=== PATIENT | male | born 1955 | race Caucasian/White ===

== ENCOUNTER 2020-02-01 13:41 | Outpatient (CLI) | payer MEDICARE, SELFPAY ==
--- NOTE | ~2020-02-01 | XR_ITS ---
EXAMINATION: XR shoulder RT min 2V INDICATION: Right shoulder pain TECHNIQUE: Four views of the right shoulder are submitted. COMPARISON: 01/03/2019 FINDINGS: No fracture is identified. There is moderate osteoarthritis of the acromioclavicular and gl enohumeral joints. Subtle amorphous calcification is seen just cranial to the humeral head which is l ikely tendinous. A stimulator is implanted in the chest wall overlying the right upper thorax with it s leads coursing into the right neck beyond the superior margin of the radiograph. IMPRESSION: 1. Moderate osteoarthritis of the right shoulder without acute osseous findings. Reviewed, dictated and finalized at location A. IMPRESSION: 1. Moderate osteoarthritis of the right shoulder without acute osseous findings .
[2020-02-01 13:58] LABS: Hematocrit 35.7 % (40.0-54.0); Hemoglobin 11.8 g/dL (14.0-18.0); Mean Corpuscular HGB Conc 33.1 g/dL (32.0-36.0); Mean Corpuscular Hemoglobin 28.2 pg (27.0-31.0); Mean Corpuscular Volume 85.2 fL (78.0-102.0); Mean Platelet Volume 9.6 fl (8.7-11.0); Platelet Count Result 234 K/mm3 (150-420); Red Blood Count 4.19 M/mm3 (4.70-6.10); Red Cell Distribution Width 13.1 % (11.6-14.4); White Blood Count 7.9 K/mm3 (4.8-10.8)
[2020-02-01 14:07] LABS: Amphetamine Screen Urine Negative (Negative); Barbiturate Screen Urine Negative (Negative); Benzodiazepines Screen Urine Negative (Negative); Cannabinoid Screen Urine Negative (Negative); Cocaine Screen Urine Negative (Negative); Methadone Screen Urine Negative (Negative); Opiate Screen Urine Negative (Negative); Phencyclidine Screen Urine Negative (Negative)
[2020-02-01 14:12] LABS: Alanine Aminotransferase 14 U/L (16-63); Alkaline Phosphatase 100 U/L (46-116); Ammonia 12 umol/L (11-32); Anion Gap 13.2 mmol/L (7-16); Aspartate Amino Transferase 24 U/L (15-37); Bilirubin,Total 0.4 mg/dL (0.00-1.00); Blood Urea Nitrogen 19 mg/dL (7-18); Calcium 9.1 mg/dL (8.5-10.1); Carbon Dioxide 29 mmol/L (21-32); Chloride 100 mmol/L (98-108); Estimated Glomerular Filt Rate 56; Glucose 132 mg/dL (70-99); Osmolality Calculated 290 mOsm/kg (285-295); Potassium 4.2 mmol/L (3.5-5.1); Sodium 138 mmol/L (136-145); Total Protein 7.3 g/dL (6.4-8.2)
== END 2020-02-01 13:42 | disposition home or self-care (01) ==
LOC: CHSLAB 13:46
PROVIDERS: PCP Family Medicine; Visit Provider Family Medicine
DX: R41.82 Altered mental status, unspecified (principal); M79.601 Pain in right arm; E11.9 Type 2 diabetes mellitus without complications; Z79.899 Other long term (current) drug therapy
CPT/HCPCS: 36415; 73030; 80053; 80307; 82140; 83036; 85027; 87086; 87088

== ENCOUNTER 2020-09-24 15:33 | Emergency (ER) | payer MEDICARE, SELFPAY ==
--- NOTE | ~2020-09-24 | XR_ITS ---
EXAMINATION: XR foot LT 2V, XR ankle LT 2V EXAM DATE: 09/24/2020 16:30 INDICATION: Initial encounter following injury, with pain of the left foot, ankle. Injury 2 days ago. TECHNIQUE: Frontal and lateral projections of the left foot. Frontal and lateral projections left an kle. Comparison is made to prior examination from 12/27/2011. FINDINGS: There is a healed left 5th metatarsal shaft fracture, and healed fractures of the 4th and 5th proximal phalanges. There are no acute fractures identified. The ankle mortise appears intact. Sequela from old lateral malleolar avulsion injury or injuries. Swelling over the ankle laterally. S mall calcaneal spurs. There are arterial calcifications, arteriosclerosis. IMPRESSION: 1. No acute left ankle or foot fractures. 2. Lateral soft tissue swelling. 3. Other chronic findings. Reviewed, dictated and finalized at location A. 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 No acute left ankle or foot fractures. 2. Lateral soft tissue swelling. 3. Other chronic findings.
[2020-09-24 16:05] VITALS: BP 127/55; PULSE 78; RESP 20; TEMP 37.1; O2SAT 98
--- NOTE | 2020-09-24 16:45 | ED.LOWEXIN ---
HPI - Extremity Injury (Lower) General Chief Complaint: Extremity Injury, Lower Stated Complaint: twisted ankle during fall Time Seen by Provider: 09/24/20 16:15 Source: patient and family History of Present Illness HPI Narrative: Patient comes in with swelling of left lateral ankle after a fall. He fell when he missed the last step on going down the stairs. He complains of pain in the left lateral ankle and left foot. This fall happened a few days ago. He had evidently injured this same ankle a few weeks ago, and it swelled then. This swelling resolved, they believe. Then he reinjured it 3 days ago. He was not felt to have a swollen left ankle, or swollen left leg before the fall. He also hit his head several days ago from a different fall, and has a black eye on the right and a healing laceration about 1cm long on the left upper eyelid. The is with him and she says his mentation has not changed. Onset (ago): week(s) Place: home Severity: moderate Severity scale (1-10): 5 Relieving factors: nothing Exacerbating factors: movement Context: fall Associated symptoms: swelling Related Data Home Medications Medication Instructions Recorded Confirmed aspirin 81 mg tablet,delayed 81 mg PO DAILY 08/31/19 09/24/20 release carbidopa 25 mg-levodopa 100 mg 2 tablet PO .Q3 hours tablet 08/31/19 09/24/20 tablet carbidopa 50 mg-levodopa 200 1 tablet PO QID 08/31/19 09/24/20 mg-entacapone 200 mg tablet docusate sodium 100 mg tablet 100 mg PO BID 08/31/19 09/24/20 insulin human U-100 NPH-regulr 40 unit SUB-Q .40u AM, 25PM ml 08/31/19 09/24/20 70-30 mix 100 unit/mL subcutaneous susp melatonin 5 mg tablet 5 mg PO .Bedtime tablet 08/31/19 09/24/20 polyethylene glycol 3350 17 17 gm PO DAILY 08/31/19 09/24/20 gram/dose oral powder sertraline 100 mg tablet 100 mg PO .1 QAM, 1/2 QPM tablet 08/31/19 09/24/20 amlodipine 10 mg PO DAILY 09/24/20 09/24/20 atorvastatin 40 mg PO DAILY 09/24/20 09/24/20 losartan 50 mg PO DAILY 09/24/20 09/24/20 metformin 1,000 mg PO BID 09/24/20 09/24/20 Allergies Allergy/AdvReac Type Severity Reaction Status Date / Time Penicillins Allergy Intermediate Unknown Verified 05/09/20 10:39 acetaminophen AdvReac Severe ams/somnole Verified 05/09/20 10:39 nce hydrocodone AdvReac Severe ams/somnole Verified 05/09/20 10:39 nce diazepam AdvReac Intermediate somnolence/ Verified 05/09/20 10:39 ams Review of Systems Constitutional: Constitutional: Reports no additional constitutional complaints Eyes: Eyes: Reports no additional eye complaints ENT: Reports system reviewed and no additional complaints, except as documented Cardiovascular: Cardiovascular: Reports no additional cardiovascular complaints Comments: denies chest pain. Respiratory: Respiratory: Reports no additional respiratory complaints Gastrointestinal: Gastrointestinal: Reports no additional gastrointestinal complaints Genitourinary: Genitourinary: Reports no additional male genitourinary complaints Musculoskeletal: Musculoskeletal: Reports no additional musculoskeletal complaints Integumentary/Breasts: Comments: Small wound on left foot, that has some mild erythema around it. Neurologic: Reports system reviewed and no additional complaints, except as documented Psychiatric: Psychiatric: Reports no additional psychiatric complaints Endocrine: Endocrine: Reports no additional endocrine complaints Hematologic/Lymphatic: Hematologic/Lymphatic: Reports no additional hematologic/lymphatic complaints Allergic/Immunologic: Allergic/Immunologic: Reports no additional allergic/immunologic complaints [facility] Past Medical History Medical History Altered mental status DM2 (diabetes mellitus, type 2) Hyperlipidemia Hypertension Left ankle sprain Neuropathy Parkinsons disease Primary osteoarthritis of right shoulder Urinary incontinence Surgical Histo
[2020-09-24] MEDS: KETOROLAC (*BKC) 60 MG/2 ML VIAL IM (17:00)
[2020-09-24 17:53] LABS: D Dimer 1.61 mg/L (0.19-0.50)
[2020-09-24 18:15] VITALS: BP 127/60
== END 2020-09-24 18:15 | disposition home or self-care (01) ==
PROVIDERS: Emergency Provider Emergency Medicine; PCP Family Medicine
DX: S93.402A Sprain of unspecified ligament of left ankle, initial encounter (principal); W19.XXXA Unspecified fall, initial encounter
CPT/HCPCS: 36415; 73600; 73620; 85380; 96372; 99283; J1885

== ENCOUNTER 2020-10-31 16:19 | Observation (INO) | payer MEDICARE, SELFPAY ==
[2020-10-31 16:25] VITALS: BP 205/88; PULSE 67; RESP 15; TEMP 36.6; O2SAT 98
--- NOTE | 2020-10-31 16:35 | ECG_ITS ---
Measurements Intervals [place] Rate: 62 P: NV: 0 QRS: 237 QRSD: 81 T: 182 QT: 395 QTc: 402 Interpretive Statements REGULAR NARROW QRS COMPLEXES, PROBABLY SINUS RHYTHM (SIGNIFICANT BASELINE ARTIFACT) BASELINE ARTIFACT- I, II, III, AVR, AVL, AVF, V1-V6 ABNORMAL ECG Electronically Signed On 10-31-2020 19:14:26 CDT by Howard Vera D.O.
[2020-10-31 16:52] LABS: Basophils Absolute Auto 0.05 K/mm3 (0.00-0.10); Basophils Percent Auto 0.9 % (0.0-1.0); Eosinophils Absolute Auto 0.32 K/mm3 (0.02-0.50); Eosinophils Percent Auto 5.7 % (1.0-6.0); Hematocrit 33.6 % (40.0-54.0); Hemoglobin 11.1 g/dL (14.0-18.0); Immature Granulocyte Absolute 0.01 K/mm3 (0.00-0.00); Immature Granulocyte Percent A 0.2 % (0.0-0.0); Lymphocytes Absolute Auto 1.77 K/mm3 (1.10-4.50); Lymphocytes Percent Auto 31.6 % (18.0-42.0); Mean Corpuscular Hemoglobin 27.1 pg (27.0-31.0); Mean Corpuscular Volume 82.2 fL (78.0-102.0); Mean Platelet Volume 9.5 fl (8.7-11.0); Monocytes Percent Auto 8.9 % (2.0-11.0); Neutrophils Percent Auto 52.7 % (50.0-70.0); Platelet Count Result 192 K/mm3 (150-420); Red Blood Count 4.09 M/mm3 (4.70-6.10); Red Cell Distribution Width 13.2 % (11.6-14.4); White Blood Count 5.6 K/mm3 (4.8-10.8)
[2020-10-31] MEDS: SODIUM CHLORIDE 0.9% IV 1,000 ML 999 ML IV CONT (17:00)
[2020-10-31 17:03] LABS: Appearance Urine Clear (Clear); Bilirubin Urine Negative (Negative); Color Urine Yellow (Yellow); Glucose Urine UA 3+ (Negative); Ketones Urine Negative (Negative); Leukocyte Esterase Ur Negative (Negative); Nitrate Urine Negative (Negative); Protein Urine 1+ (Negative); Urobilinogen Urine 0.2 mg/dL (0.2-1.0)
[2020-10-31 17:11] LABS: Add Urine Microscopic? YES; Blood Urine Trace-Intact (Negative); RBC Urine None seen /hpf (0-2)
[2020-10-31 17:12] LABS: Bacteria Urine None seen /hpf; Squamous Epithelial Cell Urine Rare /hpf (Few); WBC Urine None seen /hpf (0-3)
[2020-10-31 17:16] LABS: Alanine Aminotransferase 40 U/L (16-63); Albumin Level 3.6 g/dL (3.4-5.0); Alkaline Phosphatase 133 U/L (46-116); Anion Gap 11 mmol/L (8-16); Aspartate Amino Transferase 16 U/L (15-37); Bilirubin,Total 0.5 mg/dL (0.00-1.00); Blood Urea Nitrogen 21 mg/dL (7-18); Carbon Dioxide 27 mmol/L (21-32); Chloride 97 mmol/L (98-108); Estimated Glomerular Filt Rate > 60; Osmolality Calculated 301 mOsm/kg (285-295); Potassium 4.2 mmol/L (3.5-5.1); Sodium 135 mmol/L (136-145); Thyroid Stimulating Hormone 1.05 uIU/mL (0.36-3.74)
[2020-10-31 17:20] LABS: Glucose 421 mg/dL (70-99)
--- NOTE | 2020-10-31 17:48 | ED.GENADULT ---
HPI - General Adult General Chief complaint: Medical Clearance Stated complaint: sent from doctor meli Source: patient Mode of arrival: ambulatory Limitations: no limitations History of Present Illness HPI narrative: Pt is a 65 yo male who has been having frequent falls, worse over last week. He had PT visit 7 times, but said it wasnt enough for him to get any better. He has been cared for by his at home. She states that she can no longer care for him at home, especially in his current state of deconditioning. The is unruly in the ED, Yelling at me, threatening to mariaelena me and the insurance if we dont get him in a swing/rehab bed. SHe is absolutely not capable of listening and discussing the situation in a calm manner at this time. It was a very confrontational, and i had to call in nursing. SHe seems to be more cooperative with nursing staff. She is extremely difficult, even though i have been speaking in a calm manner and telling her that I want to get him help. She apparently expected to get accepted to a swing bed immediately, which i tried to explain is not the process. Onset (ago): month(s) Relieving factors: none Exacerbating factors: none Associated symptoms: denies other symptoms and weakness Related Data Home Medications Medication Instructions Recorded Confirmed aspirin 81 mg tablet,delayed 81 mg PO DAILY 08/31/19 10/31/20 release carbidopa 25 mg-levodopa 100 mg 2 tablet PO .Q3 hours tablet 08/31/19 10/31/20 tablet carbidopa 50 mg-levodopa 200 1 tablet PO QID 08/31/19 10/31/20 mg-entacapone 200 mg tablet docusate sodium 100 mg tablet 100 mg PO BID 08/31/19 10/31/20 insulin human U-100 NPH-regulr 40 unit SUBCUT QAM ml 08/31/19 10/31/20 70-30 mix 100 unit/mL subcutaneous susp polyethylene glycol 3350 17 17 gm PO DAILY 08/31/19 10/31/20 gram/dose oral powder sertraline 100 mg tablet 100 mg PO .1 QAM, 1/2 QPM tablet 08/31/19 10/31/20 amlodipine 10 mg PO DAILY 09/24/20 10/31/20 atorvastatin 40 mg PO DAILY 09/24/20 10/31/20 losartan 50 mg PO DAILY 09/24/20 10/31/20 metformin 1,000 mg PO BID 09/24/20 10/31/20 acetaminophen 500 mg PO Q6H PRN 10/31/20 10/31/20 clonazepam 0.5 mg PO HS 10/31/20 10/31/20 insulin NPH isoph U-100 human 25 unit SUBCUT HS 10/31/20 10/31/20 [Novolin N NPH U-100 Insulin] semaglutide [Ozempic] 0.5 mg SUBCUT WEEKLY 10/31/20 10/31/20 vitamin A-vitamin C-vit E-min 1 tablet PO DAILY 10/31/20 10/31/20 [Vision] vitamin B complex [B 1 tablet PO DAILY 10/31/20 10/31/20 Complex-Vitamin B12] Allergies Allergy/AdvReac Type Severity Reaction Status Date / Time Penicillins Allergy Intermediate Unknown Verified 10/31/20 08:36 acetaminophen AdvReac Severe ams/somnole Verified 10/31/20 08:36 nce hydrocodone AdvReac Severe ams/somnole Verified 10/31/20 08:36 nce diazepam AdvReac Intermediate somnolence/ Verified 10/31/20 08:36 ams Review of Systems Review of Systems: All systems reviewed & are unremarkable except as noted in HPI and below Constitutional: Constitutional: Reports weakness Eyes: Eyes: Reports no additional eye complaints ENT: Reports system reviewed and no additional complaints, except as documented Cardiovascular: Cardiovascular: Reports no additional cardiovascular complaints Respiratory: Respiratory: Reports no additional respiratory complaints Gastrointestinal: Gastrointestinal: Reports no additional gastrointestinal complaints Genitourinary: Genitourinary: Reports no additional male genitourinary complaints Musculoskeletal: Musculoskeletal: Reports no additional musculoskeletal complaints Integumentary/Breasts: Skin/Breast: Reports system reviewed and no additional complaints, except as docu Neurologic: Reports system reviewed and no additional complaints, except as documented Psychiatric: Psychiatric: Reports no additional psychiatric complaints Endocrine: Endocrine: Reports no additional endocrine complaints H
[2020-10-31 19:00] VITALS: BP 180/100; PULSE 66; O2SAT 95
[2020-10-31 19:14] VITALS: BP 144/95; PULSE 62; RESP 20; TEMP 37; O2SAT 98
--- NOTE | 2020-10-31 20:00 | ADMGEN ---
This patient, Marcos Webb, was admitted to 2nd Floor Room 207-2. Patient/family oriented to hospital policies and general routines including ID bracelet, bed and alarms, visiting hours, pain management, procedures, bathroom and other care routines, personal items, smoking policy, room service/diet, and visiting hours. Information on how to activate the Rapid Response Team has been discussed. Patient/Family are encouraged to report perceived risks to care and to ask questions if they do not understand what they are told or what they should do. Pt. has noted difficulty holding objects c his hands and asks for help c feeding. Pt. instructed on use of call light but unable to utilize hands to push buttons. Pt. informed he is close to nurse desk and frequent observation checks for help if needed. Pt. verbalized understanding.
[2020-10-31 20:09] LABS: Glucose Point of Care 274 (65-105)
[2020-10-31] MEDS: SERTRALINE HCL 50 MG TABLET PO (20:11)
[2020-10-31] MEDS: DOCUSATE SODIUM 100 MG CAPSULE PO (20:12)
[2020-10-31] MEDS: clonazePAM (*CRX) 0.5 MG TABLET PO (21:15)
[2020-10-31] MEDS: CARBIDOPA/LEVODOPA 25/100 MG TABLET 2 TABLET PO (21:15)
[2020-10-31] MEDS: ATORVASTATIN 40 MG TABLET PO (21:15)
[2020-10-31] MEDS: INSULIN HUMAN NPH (*BKC) 100 UNITS/ML 25 UNITS SUB-Q (21:16)
[2020-10-31 21:45] VITALS: BMI 31.5
[2020-10-31 22:00] VITALS: BP 180/75; PULSE 80; RESP 20; TEMP 36.5; O2SAT 97
--- NOTE | 2020-10-31 22:00 | PC.NURSE ---
Pt. noted to be pulling at sheets and attempting to get out of bed. Pt. noted to be incont. of urine and complete bed change performed. Pt. informed that he cannot get out of bed. Pt. follows commands when told to stay in bed but is confused and needs much reassurance at this time.
--- NOTE | 2020-11-01 05:30 | PC.NURSE ---
Pt. called for help, unable to use call light. Pt. requested urinal and assisted c holding in place. Pt. was able to urinate. Seems more alert and not as confused this AM.
[2020-11-01 05:44] VITALS: BP 147/91; PULSE 65; RESP 20; TEMP 36.9; O2SAT 96
--- NOTE | 2020-11-01 06:45 | PC.NURSE ---
Contacted Dr. Cardona to clarify medication orders; Orders clarified.
[2020-11-01 08:03] LABS: Glucose Point of Care 244 (65-105)
--- NOTE | 2020-11-01 08:10 | WPDREHABHP ---
H&P: HPI History of Present Illness Date/Time: 11/01/20 08:10 Marcos Webb is a 65 y/o male with a history of Parkinson Disease who recently saw his Neurology provider Laura Alejandro NP at [facility]. I called Laura regarding increasing, confirming, or to make additions to the Pt's Parkinson medications since he is here for increased weakness and unable to get up and walk about his home. According to Laura Pt does not walk much, has a stair chair that she believes does not work and the Pt uses a wheelchair to get around the home. She states that the will leave Pts medications next to him at home with a clock near him so that he can medicate himself. Laura did not want to make any changes or additions to the Pt's Parkinson regimen and informed me she did increase the Pt's Brain Stimulator in September 2020. The brought the Pt to the ER because he has gotten weaker and unable to take care of him at home. Pt was working with HH PT about 7 times though states he is not getting any better. The Pt's PCP was wanting a swing bed for PT/OT for reconditioning so that the Pt may return home per the 's wishes. apparently does not want her to go to a snf or similar and wants him to get stronger to return home. Chief Complaint: Deconditioning, Weakness Review of Systems Constitutional Constitutional: Reports no additional constitutional complaints, Denies chills and Denies fever(s) Eyes Eyes: Reports no additional eye complaints ENT Reports system reviewed and no additional complaints, except as documented Cardiovascular Cardiovascular: Reports no additional cardiovascular complaints, Denies chest pain, Denies chest pain at rest and Denies chest pain with activity Respiratory Respiratory: Reports no additional respiratory complaints, Denies cough, Denies dyspnea and Denies dyspnea on exertion Gastrointestinal Gastrointestinal: Reports no additional gastrointestinal complaints Genitourinary Genitourinary: Reports no additional male genitourinary complaints Musculoskeletal Musculoskeletal: Reports muscle weakness (unable to get up and walk) Neurologic Reports system reviewed and no additional complaints, except as documented and Reports weakness PMFSH Past Medical History Medical History Altered mental status DM2 (diabetes mellitus, type 2) Hyperlipidemia Hypertension Left ankle sprain Neuropathy Parkinsons disease Primary osteoarthritis of right shoulder Urinary incontinence Surgical History Surgical History History of carpal tunnel surgery Left Side 2014 Right Side 2015 Family History Family History Other Diabetes mellitus Family history of arthritis Family history of cardiovascular disease Family history of malignant neoplasm Hypertension Social History Social History Smoking status: Never smoker Alcohol intake: never Substance use: never 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) Meds Home Medications and Allergies Home Medications Medication Instructions Recorded Confirmed Type aspirin 81 mg tablet,delayed 81 mg PO DAILY 08/31/19 10/31/20 History release carbidopa 25 mg-levodopa 100 mg 2 tablet PO .Q3 hours tablet 08/31/19 10/31/20 History tablet carbidopa 50 mg-levodopa 200 1 tablet PO QID 08/31/19 10/31/20 History mg-entacapone 200 mg tablet docusate sodium 100 mg tablet 100 mg PO BID 08/31/19 10/31/20 History insulin human U-100 NPH-regulr 40 unit SUBCUT QAM ml 08/31/19 10/31/20 History 70-30 mix 100 unit/mL subcutaneous susp polyethylene glycol 3350 17 17 gm PO DAILY 08/31/19 10/31/20 History gram/dose oral powder sertraline 100 mg tablet 100 mg PO .1 QAM, 1/2 QPM tablet 08/31/19 10/31/20 History amlodi
[2020-11-01] MEDS: polyethylene glycoL 3350 17 GM POWD.PACK PO (08:15)
[2020-11-01] MEDS: amLODIPine BESYLATE 5 MG TABLET 10 MG PO (08:15)
[2020-11-01] MEDS: DOCUSATE SODIUM 100 MG CAPSULE PO ×2 (08:15→18:04)
[2020-11-01] MEDS: CARBIDOPA/LEVODOPA 25/100 MG TABLET 2 TABLET PO ×6 (08:16→23:39)
[2020-11-01] MEDS: metFORMIN HCL 500 MG TABLET 1000 MG PO ×2 (08:16→18:05)
[2020-11-01] MEDS: VITAMIN B COMPLEX CAPSULE 1 CAP PO (08:17)
[2020-11-01] MEDS: OPTI-GEN TAB 1 TABLET PO (08:17)
[2020-11-01] MEDS: LOSARTAN POTASSIUM 50 MG TABLET PO (08:17)
[2020-11-01] MEDS: SERTRALINE HCL 50 MG TABLET 100 MG PO (08:18)
[2020-11-01] MEDS: ASPIRIN 81 MG ENTERIC TABLET PO (08:18)
--- NOTE | 2020-11-01 09:17 | PC.NURSE ---
tells pt that he is able to put pants on but can not always pull them all the way up. after pt leaves tells nurse unable to do for self. encouraged pt to do and staff would help. after set up can feed self. lift cup with straw and drink. crosses on foot on lap and pull sock up. praised for job well done. elana grace
[2020-11-01] MEDS: INSULIN HUMAN ISOPHAN/REGULAR 70/30 (*BKC) 100 UNITS/ML 40 UNITS SUB-Q (09:58)
[2020-11-01] MEDS: ENTACAPONE 200 MG TABLET PO ×3 (12:43→21:39)
[2020-11-01 14:00] VITALS: BP 170/92; PULSE 80; RESP 16; TEMP 36.6; O2SAT 96
--- NOTE | 2020-11-01 15:39 | PHAR ---
jacinto davis children's librarian confirmed w/pt.'s neurologist is to take the carbidopa/levodopa q3h, and also sep rx qid. tls
[2020-11-01 16:00] VITALS: BP 123/82; PULSE 70; RESP 18; TEMP 36.5; O2SAT 96
[2020-11-01 16:33] LABS: Glucose Point of Care 259 (65-105)
--- NOTE | 2020-11-01 16:54 | PC.NURSE ---
Blood sugar 82 per Accu-chek, reverified 80. Ryanne Ramirez RN Charge Nurse informed.
[2020-11-01 16:55] LABS: Glucose Point of Care 82 (65-105)
[2020-11-01 16:55] LABS: Glucose Point of Care 80 (65-105)
[2020-11-01] MEDS: SERTRALINE HCL 50 MG TABLET PO (18:05)
[2020-11-01 21:38] LABS: Glucose Point of Care 126 (65-105)
[2020-11-01] MEDS: ATORVASTATIN 40 MG TABLET PO (21:38)
[2020-11-01] MEDS: clonazePAM (*CRX) 0.5 MG TABLET PO (21:38)
[2020-11-01] MEDS: INSULIN HUMAN NPH (*BKC) 100 UNITS/ML 25 UNITS SUB-Q (21:43)
--- NOTE | 2020-11-01 21:50 | PC.NURSE ---
Given cottage cheese for HS snack.
[2020-11-01] MEDS: ACETAMINOPHEN 500 MG TABLET PO (23:38)
[2020-11-01 23:50] VITALS: BP 105/50; PULSE 66; RESP 20; TEMP 36.8; O2SAT 97
[2020-11-02] MEDS: CARBIDOPA/LEVODOPA 25/100 MG TABLET 2 TABLET PO ×11 (02:18→20:33)
[2020-11-02 08:00] VITALS: BP 137/86; PULSE 61; RESP 20; TEMP 36.7; O2SAT 96
[2020-11-02 08:17] LABS: Glucose Point of Care 165 (65-105)
[2020-11-02] MEDS: ASPIRIN 81 MG ENTERIC TABLET PO (08:21)
[2020-11-02] MEDS: OPTI-GEN TAB 1 TABLET PO (08:21)
[2020-11-02] MEDS: polyethylene glycoL 3350 17 GM POWD.PACK PO (08:21)
[2020-11-02] MEDS: ENTACAPONE 200 MG TABLET PO ×4 (08:21→20:37)
[2020-11-02] MEDS: LOSARTAN POTASSIUM 50 MG TABLET PO (08:22)
[2020-11-02] MEDS: DOCUSATE SODIUM 100 MG CAPSULE PO ×2 (08:22→16:43)
[2020-11-02] MEDS: amLODIPine BESYLATE 5 MG TABLET 10 MG PO (08:24)
[2020-11-02] MEDS: ACETAMINOPHEN 500 MG TABLET PO (08:24)
[2020-11-02] MEDS: metFORMIN HCL 500 MG TABLET 1000 MG PO ×2 (08:28→16:42)
[2020-11-02] MEDS: VITAMIN B COMPLEX CAPSULE 1 CAP PO (08:30)
[2020-11-02] MEDS: SERTRALINE HCL 50 MG TABLET 100 MG PO (08:30)
[2020-11-02] MEDS: INSULIN HUMAN ISOPHAN/REGULAR 70/30 (*BKC) 100 UNITS/ML 40 UNITS SUB-Q (08:37)
[2020-11-02 11:58] LABS: Glucose Point of Care 221 (65-105)
--- NOTE | 2020-11-02 12:04 | PM.IMPN ---
Progress Note: A&P Assessment and Plan (1) Weakness generalized: Code(s): R53.1 - Weakness Status: Acute Assessment and Plan: 11/01/2020 PT/OT for evaluation and treatment for generalized weakness and inability to walk, Glucose was 400+ upon arrival to hospital but now in the mid 200s, Reconditioning with PT/OT so that Pt may return home to perform some ADLs with 's assistance, likely try to get HH involved with PT/OT and possibly additional care provider as my be experiencing caregiver fatigue. 11/02/2020 Pt to continue working with PT/OT, awaiting for Pt to be accepted into Swing Bed for continuation of PT/OT so that he can return home with increased stamina, balance, strength so as to perform ADLs along with assistance from his . (2) Parkinsons disease: Code(s): G20 - Parkinson's disease Status: Acute Assessment and Plan: 11/01/2020 Called Pt's Neuro group as noted in HPI, continue Parkinson medications, Sertraline, Clonazepam, monitor Pt, work with PT/OT 11/02/2020 No changes to be made per [facility] group to Parkinson medications, however orders placed as Pt is to be taking his mediations to ensure Pt is getting his medications as the Neuro group providers intended the Pt to have them. (3) Hyperlipidemia: Code(s): E78.5 - Hyperlipidemia, unspecified Status: Acute Assessment and Plan: 11/01/2020 continue Atorvastatin, ASA 11/02/2020 ... (4) Hypertension: Code(s): I10 - Essential (primary) hypertension Status: Acute Assessment and Plan: 11/01/2020 Continue with Amlodipine, Losartan 11/02/2020 Continue as above, no need at this time to change medications (5) DM2 (diabetes mellitus, type 2): Code(s): E11.9 - Type 2 diabetes mellitus without complications Status: Acute Assessment and Plan: 11/01/2020 Per Pt does not take Ozempic since it is too expensive, Currently with Metformin, 70/30 insulin 40 units QAM, Insulin NPH 25 units HS, glucose monitoring, Diabetic consistent carb diet. 11/02/2020 Will recheck labs in AM and continue to monitor Accu-checks Subjective Date/time seen: 11/02/20 12:04 Pt states that he is legally blind. He informed me that his sets up his medications with a clock nearby that he can look at and administer his medications to himself. Pt states that his vision fluctuates at times and at some times he has a very difficult time seeing. He states that during the times he is unable to see his with assist with giving him his medications. Pt state he is feeling good today and is looking forward to getting PT and OT so that he can return home. Pt admits that his stair [place] lift is not working properly and that his walker is broken after he fell down and broke the walker in the process. Pt has not complaints of CP, SOB, abdominal issues. He does c/o pain in his legs that he has been dealing with for a long time. He states that he has been to many neurologist for his leg pain and many different medications have been trialed but nothing seems to work. Review of Systems Constitutional: Constitutional: Denies chills, Denies fatigue, Denies fever(s), Denies headache(s) and Reports weakness (in legs with walking) Eyes: Comments: admits to being legally blind ENT: Reports system reviewed and no additional complaints, except as documented, Denies vertigo and Denies dizziness Cardiovascular: Cardiovascular: Reports no additional cardiovascular complaints, Denies chest pain, Denies chest pain at rest and Denies chest pain with activity Respiratory: Respiratory: Reports no additional respiratory complaints, Denies cough, Denies dyspnea and Denies dyspnea on exertion Gastrointestinal: Gastrointestinal: Reports no additional gastrointestinal complaints Musculoskeletal: Musculoskeletal: Reports numbness (Lower extremities) and Reports tingling (Lower extremities) Neurologic: Reports focal weakness (states he gets weak in the legs) and Re
[2020-11-02] MEDS: GABAPENTIN 100 MG CAPSULE PO ×2 (12:46→16:43)
[2020-11-02 16:20] VITALS: BP 154/87; PULSE 63; RESP 20; TEMP 37; O2SAT 97
[2020-11-02 16:40] LABS: Glucose Point of Care 137 (65-105)
[2020-11-02] MEDS: SERTRALINE HCL 50 MG TABLET PO (18:02)
[2020-11-02] MEDS: LORazepam INJ (*CRX) 2 MG/ML VIAL 0.5 MG IV PUSH (18:21)
--- NOTE | 2020-11-02 18:48 | PC.NURSE ---
Daughter here and visiting patient.
--- NOTE | 2020-11-02 19:26 | PC.NURSE ---
pt is very agitated, attempting to get out of chair, transferred to bed with sit to stand, in room states his klonopin will calm him down best, dr coleman called and has given telephone permission to give 2100 dose of klonopin early
[2020-11-02] MEDS: clonazePAM (*CRX) 0.5 MG TABLET PO (19:34)
[2020-11-02] MEDS: ATORVASTATIN 40 MG TABLET PO (20:34)
[2020-11-02] MEDS: INSULIN HUMAN NPH (*BKC) 100 UNITS/ML 25 UNITS SUB-Q (21:12)
[2020-11-03] VITALS: BP 140/83; PULSE 72; RESP 20; TEMP 37.5; O2SAT 95
[2020-11-03] MEDS: CARBIDOPA/LEVODOPA 25/100 MG TABLET 2 TABLET PO ×7 (00:12→12:27)
--- NOTE | 2020-11-03 00:15 | PC.NURSE ---
Pt repositioned in bed; Pt given sinemet 25/100 2 tablets PO as ordered.
--- NOTE | 2020-11-03 01:06 | PC.NURSE ---
Pt incontinent of urine; Pt also voided 250 ml of clear, tutu urine in the urinal. Pt cleaned, changed and repositioned and was given gelatin to eat.
[2020-11-03 01:18] LABS: Glucose Point of Care 136 (65-105)
--- NOTE | 2020-11-03 02:55 | PC.NURSE ---
Pt incontinent of urine; Pt cleaned, changed and repositioned. Pt also given sinemet 25/100 2 tabs as ordered.
--- NOTE | 2020-11-03 04:34 | PC.NURSE ---
Pt assisted with the urinal and he voided 250 ml of clear, tutu urine in the urinal. Pt is still trying to get out of bed and is very restless.
--- NOTE | 2020-11-03 05:19 | PC.NURSE ---
Pt offered the urinal and he voided 250 ml of clear, tutu urine.
[2020-11-03 05:30] LABS: Hematocrit 35.6 % (40.0-54.0); Hemoglobin 11.6 g/dL (14.0-18.0); Mean Corpuscular HGB Conc 32.6 g/dL (32.0-36.0); Mean Corpuscular Hemoglobin 26.9 pg (27.0-31.0); Mean Corpuscular Volume 82.4 fL (78.0-102.0); Mean Platelet Volume 10.6 fl (8.7-11.0); Platelet Count Result 232 K/mm3 (150-420); Red Blood Count 4.32 M/mm3 (4.70-6.10); White Blood Count 7.6 K/mm3 (4.8-10.8)
[2020-11-03 06:02] LABS: Anion Gap 6 mmol/L (8-16); Blood Urea Nitrogen 21 mg/dL (7-18); Calcium 8.9 mg/dL (8.5-10.1); Carbon Dioxide 28 mmol/L (21-32); Chloride 102 mmol/L (98-108); Estimated CRCL calculation 95 ml/min; Estimated Glomerular Filt Rate > 60; Glucose 98 mg/dL (70-99); Osmolality Calculated 285 mOsm/kg (285-295); Potassium 4.2 mmol/L (3.5-5.1); Sodium 136 mmol/L (136-145)
--- NOTE | 2020-11-03 06:22 | PC.NURSE ---
Pt given sinemet 25/100 2 tablets PO as ordered.
--- NOTE | 2020-11-03 07:20 | PC.NURSE ---
Pt continues to be restless and agitated and trying to get out of bed. Pt assisted up to the chair with the sit to stand and assist of two.
[2020-11-03 07:33] LABS: Glucose Point of Care 197 (65-105)
[2020-11-03 08:00] VITALS: BP 127/60; PULSE 69; RESP 20; TEMP 36.8; O2SAT 97
[2020-11-03] MEDS: INSULIN HUMAN ISOPHAN/REGULAR 70/30 (*BKC) 100 UNITS/ML 40 UNITS SUB-Q (09:50)
[2020-11-03] MEDS: polyethylene glycoL 3350 17 GM POWD.PACK PO (09:51)
[2020-11-03] MEDS: ASPIRIN 81 MG ENTERIC TABLET PO (09:52)
[2020-11-03] MEDS: metFORMIN HCL 500 MG TABLET 1000 MG PO (09:52)
[2020-11-03] MEDS: SERTRALINE HCL 50 MG TABLET 100 MG PO (09:52)
[2020-11-03] MEDS: VITAMIN B COMPLEX CAPSULE 1 CAP PO (09:53)
[2020-11-03] MEDS: GABAPENTIN 100 MG CAPSULE PO ×2 (09:53→12:25)
[2020-11-03] MEDS: ENTACAPONE 200 MG TABLET PO ×2 (09:54→12:27)
[2020-11-03] MEDS: OPTI-GEN TAB 1 TABLET PO (09:54)
[2020-11-03] MEDS: DOCUSATE SODIUM 100 MG CAPSULE PO (09:54)
[2020-11-03] MEDS: LOSARTAN POTASSIUM 50 MG TABLET PO (09:54)
[2020-11-03] MEDS: amLODIPine BESYLATE 5 MG TABLET 10 MG PO (09:54)
[2020-11-03 12:10] LABS: Glucose Point of Care 191 (65-105)
--- NOTE | 2020-11-03 13:48 | PM.DS ---
DS: Admitting Diagnosis Admitting Diagnosis Admitting Diagnosis: Generalized Weakness <ENMANUEL Miller - Last Filed: 11/03/20 14:01> DS: Discharge Diagnosis Discharge Diagnosis (1) Weakness generalized: Code(s): R53.1 - Weakness <Roosevelt LastENMANUEL Luna - Last Filed: 11/03/20 14:01> Status: Acute <Roosevelt BerhaneENMANUEL Luna - Last Filed: 11/03/20 14:01> Assessment and Plan: 11/01/2020 PT/OT for evaluation and treatment for generalized weakness and inability to walk, Glucose was 400+ upon arrival to hospital but now in the mid 200s, Reconditioning with PT/OT so that Pt may return home to perform some ADLs with 's assistance, likely try to get HH involved with PT/OT and possibly additional care provider as my be experiencing caregiver fatigue. 11/02/2020 Pt to continue working with PT/OT, awaiting for Pt to be accepted into Swing Bed for continuation of PT/OT so that he can return home with increased stamina, balance, strength so as to perform ADLs along with assistance from his . 11/03/2020 Pt has been accepted to the Swing Bed Program per Case Management per Insurance. Pt will be transferred, via documentation, into Swing Bed for Rehabilitation d/t his Generalized Weakness to work with PT/OT for reconditioning. <ENMANUEL Miller - Last Filed: 11/03/20 14:01> (2) Parkinsons disease: Code(s): G20 - Parkinson's disease <ENMANUEL Miller - Last Filed: 11/03/20 14:01> Status: Acute <ENMANUEL Miller - Last Filed: 11/03/20 14:01> Assessment and Plan: 11/01/2020 Called Pt's Neuro group as noted in HPI, continue Parkinson medications, Sertraline, Clonazepam, monitor Pt, work with PT/OT 11/02/2020 No changes to be made per Neuro group to Parkinson medications, however orders placed as Pt is to be taking his mediations to ensure Pt is getting his medications as the Neuro group providers intended the Pt to have them. 11/03/2020 Pt medications have been set yesterday as noted per Neuro group established regimen. Gabapentin was added for Pt LE neuropath 100 mg TID <ENMANUEL Miller - Last Filed: 11/03/20 14:01> (3) Hyperlipidemia: Code(s): E78.5 - Hyperlipidemia, unspecified <ENMANUEL Miller - Last Filed: 11/03/20 14:01> Status: Acute <ENMANUEL Miller - Last Filed: 11/03/20 14:01> Assessment and Plan: 11/01/2020 continue Atorvastatin, ASA 11/02/2020 ... <ENMANUEL Miller - Last Filed: 11/03/20 14:01> (4) Hypertension: Code(s): I10 - Essential (primary) hypertension <ENMANUEL Miller - Last Filed: 11/03/20 14:01> Status: Acute <ENMANUEL Miller - Last Filed: 11/03/20 14:01> Assessment and Plan: 11/01/2020 Continue with Amlodipine, Losartan 11/02/2020 Continue as above, no need at this time to change medications 11/03/2020 VS stable no need to change medications at this time. <ENMANUEL Miller - Last Filed: 11/03/20 14:01> (5) DM2 (diabetes mellitus, type 2): Code(s): E11.9 - Type 2 diabetes mellitus without complications <ENMANUEL Miller - Last Filed: 11/03/20 14:01> Status: Acute <ENMANUEL Miller - Last Filed: 11/03/20 14:01> Assessment and Plan: 11/01/2020 Per Pt does not take Ozempic since it is too expensive, Currently with Metformin, 70/30 insulin 40 units QAM, Insulin NPH 25 units HS, glucose monitoring, Diabetic consistent carb diet. 11/02/2020 Will recheck labs in AM and continue to monitor Accu-checks 11/03/2020 Glucose has been controlled well to this point, no changes to medications at this time. <ENMANUEL Miller - Last Filed: 11/03/20 14:01> DS: Summary Hospital Course Hospital Course: Pt is here for generalized weakness and was waiting for insurance to approve Swing Bed Placement for Rehabilitation. Pt is going to be admitted as Swing bed Pt. <ENMANUEL Miller La
[2020-11-03 23:11] LABS: Glucose Point of Care 105 (65-105)
== END 2020-11-03 14:00 | disposition swing bed (61) ==
LOC: CHSED 16:22 → CHS2ND 19:12
PROVIDERS: Nurse Practitioner Family; Admitting Provider Emergency Medicine; Emergency Provider Emergency Medicine; PCP Family Medicine; Visit Provider Emergency Medicine
DX: R53.1 Weakness (principal); G20 Parkinson's disease; I10 Essential (primary) hypertension; E11.40 Type 2 diabetes mellitus with diabetic neuropathy, unspecified; E78.5 Hyperlipidemia, unspecified; H54.8 Legal blindness, as defined in USA; M79.606 Pain in leg, unspecified; M19.011 Primary osteoarthritis, right shoulder; R29.6 Repeated falls; Z91.81 History of falling; Z79.82 Long term (current) use of aspirin
CPT/HCPCS: 36415; 80048; 80053; 81001; 82948; 84443; 84484; 85025; 85027; 93005; 96360; 96361; 96374; 97162; 97165; 97530; 97535; 99285; A9270; G0378; J1815; J2060; J7030

== ENCOUNTER 2020-11-03 14:01 | Inpatient (IN) | payer MEDICARE, SELFPAY ==
--- NOTE | 2020-11-03 16:07 | WPDREHABHP ---
H&P: HPI History of Present Illness Date/Time: 11/03/20 16:07 Marcos Webb a 65 year old male was admitted to Swing Bed for Generalized Weakness. states that she is not able to take care of the Pt any more d/t his increased weakness. Pt states that he has a stair chair lift at home but it does not work and his walker was broken when he had a fall. Pt has a Hx of Parkinson, DM, Hyperlipidemia. Pt will need to work with PT/OT to increase his stamina and strength so that he can return home as does not want him placed in a assisted. Chief Complaint: Generalized Weakness Review of Systems Constitutional Constitutional: Reports no additional constitutional complaints, Denies chills, Denies fever(s), Denies headache(s) and Reports weakness ENT Reports system reviewed and no additional complaints, except as documented, Reports Normal hearing present, Denies vertigo, Denies dizziness and Reports other (states he is legally blind) Cardiovascular Cardiovascular: Reports no additional cardiovascular complaints, Denies chest pain and Denies chest pain at rest Respiratory Respiratory: Reports no additional respiratory complaints, Denies cough and Denies dyspnea Gastrointestinal Gastrointestinal: Reports no additional gastrointestinal complaints, Denies abdominal pain, Denies nausea and Denies vomiting Musculoskeletal Musculoskeletal: Reports no additional musculoskeletal complaints and Reports muscle weakness (states his legs give out at times) Neurologic Reports system reviewed and no additional complaints, except as documented, Reports Normal hearing present, Denies vertigo, Denies dizziness and Denies headache(s) Psychiatric Psychiatric: Reports no additional psychiatric complaints PMFSH Past Medical History Medical History Altered mental status DM2 (diabetes mellitus, type 2) Hyperlipidemia Hypertension Left ankle sprain Neuropathy Parkinsons disease Primary osteoarthritis of right shoulder Urinary incontinence Surgical History Surgical History History of carpal tunnel surgery Left Side 2014 Right Side 2015 Family History Family History Other Diabetes mellitus Family history of arthritis Family history of cardiovascular disease Family history of malignant neoplasm Hypertension Social History Social History Smoking status: Never smoker Alcohol intake: never Substance use: never Spiritual care concerns: Yes (Orthotist Or Prosthetist if needed) Meds Home Medications and Allergies Home Medications Medication Instructions Recorded Confirmed Type aspirin 81 mg tablet,delayed 81 mg PO DAILY 08/31/19 10/31/20 History release carbidopa 25 mg-levodopa 100 mg 2 tablet PO .Q3 hours tablet 08/31/19 10/31/20 History tablet carbidopa 50 mg-levodopa 200 1 tablet PO QID 08/31/19 10/31/20 History mg-entacapone 200 mg tablet docusate sodium 100 mg tablet 100 mg PO BID 08/31/19 10/31/20 History insulin human U-100 NPH-regulr 40 unit SUBCUT QAM ml 08/31/19 10/31/20 History 70-30 mix 100 unit/mL subcutaneous susp polyethylene glycol 3350 17 17 gm PO DAILY 08/31/19 10/31/20 History gram/dose oral powder sertraline 100 mg tablet 100 mg PO .1 QAM, 1/2 QPM tablet 08/31/19 10/31/20 History amlodipine 10 mg PO DAILY 09/24/20 10/31/20 History atorvastatin 40 mg PO DAILY 09/24/20 10/31/20 History losartan 50 mg PO DAILY 09/24/20 10/31/20 History metformin 1,000 mg PO BID 09/24/20 10/31/20 History acetaminophen 500 mg PO Q6H PRN 10/31/20 10/31/20 History clonazepam 0.5 mg PO HS 10/31/20 10/31/20 History insulin NPH isoph U-100 human 25 unit SUBCUT HS 10/31/20 10/31/20 History [Novolin N NPH U-100 Insulin] semaglutide [Ozempic] 0.5 mg SUBCUT WEEKLY 10/31/20 10/31/20 History vitamin A-vitamin C-
[2020-11-03] MEDS: metFORMIN HCL 500 MG TABLET 1000 MG PO (17:43)
[2020-11-03] MEDS: DOCUSATE SODIUM 100 MG CAPSULE PO (17:43)
[2020-11-03] MEDS: GABAPENTIN 100 MG CAPSULE PO (17:45)
[2020-11-03] MEDS: SERTRALINE HCL 50 MG TABLET PO (17:45)
[2020-11-03] MEDS: clonazePAM (*CRX) 0.5 MG TABLET PO (20:35)
[2020-11-03] MEDS: ATORVASTATIN 40 MG TABLET PO (20:35)
[2020-11-03] MEDS: INSULIN HUMAN NPH (*BKC) 100 UNITS/ML 25 UNITS SUB-Q (20:38)
[2020-11-03 21:00] LABS: Glucose Point of Care 171 (65-105)
--- NOTE | 2020-11-03 21:20 | PC.NURSE ---
Patient asked for snack and and spilled it all over himself. Patient asking to go to bed. Patient moving addis chair with brakes on by scooting with his feet and keeps shaking tray of chair. Patient assisted to bed using [employer] with 2 nurses. Call light and drinks in reach and patient felt where they are.
[2020-11-03] MEDS: CARBIDOPA/LEVODOPA 25/100 MG TABLET 2 TABLET PO (22:00)
[2020-11-03 23:38] VITALS: BP 136/82; PULSE 78; RESP 20; TEMP 36.6; O2SAT 94
--- NOTE | 2020-11-04 07:44 | PHAR ---
SPOKE WITH EMMANUEL VALDIVIA AND HE SAID NEUROLOGIST WANTS SINEMET AND ENTACAPONE ORDERS EXACTLY HOW THEY'RE ENTERED - [id number] AND [facility]
[2020-11-04 07:55] LABS: Glucose Point of Care 86 (65-105)
[2020-11-04 08:00] VITALS: BP 153/75; PULSE 68; RESP 18; TEMP 36.8; O2SAT 96
[2020-11-04] MEDS: VITAMIN B COMPLEX CAPSULE 1 CAP PO (09:42)
[2020-11-04] MEDS: ASPIRIN 81 MG ENTERIC TABLET PO (09:42)
[2020-11-04] MEDS: polyethylene glycoL 3350 17 GM POWD.PACK PO (09:42)
[2020-11-04] MEDS: metFORMIN HCL 500 MG TABLET 1000 MG PO ×2 (09:43→18:05)
[2020-11-04] MEDS: DOCUSATE SODIUM 100 MG CAPSULE PO ×2 (09:43→18:03)
[2020-11-04] MEDS: CARBIDOPA/LEVODOPA 25/100 MG TABLET 2 TABLET PO ×10 (09:43→21:56)
[2020-11-04] MEDS: SERTRALINE HCL 50 MG TABLET 100 MG PO ×2 (09:43→18:03)
[2020-11-04] MEDS: GABAPENTIN 100 MG CAPSULE PO ×3 (09:44→18:05)
[2020-11-04] MEDS: ENTACAPONE 200 MG TABLET PO ×4 (09:44→21:57)
[2020-11-04] MEDS: LOSARTAN POTASSIUM 50 MG TABLET PO (09:44)
[2020-11-04] MEDS: amLODIPine BESYLATE 5 MG TABLET 10 MG PO (09:44)
[2020-11-04] MEDS: INSULIN HUMAN ISOPHAN/REGULAR 70/30 (*BKC) 100 UNITS/ML 40 UNITS SUB-Q (09:45)
[2020-11-04 11:30] LABS: Glucose Point of Care 156 (65-105)
[2020-11-04 16:00] VITALS: BP 121/55; PULSE 74; RESP 18; TEMP 36.7; O2SAT 93
[2020-11-04 17:04] LABS: Glucose Point of Care 97 (65-105)
[2020-11-04] MEDS: SERTRALINE HCL 50 MG TABLET PO (18:06)
--- NOTE | 2020-11-04 19:40 | PC.NURSE ---
Pt. is very restless upon entering room, unable to sit still in bed and trying to sit at bedside. Pt. assisted to side of bed and call rod in place. Sitter protocol initiated due to pt. being fall risk and unable to comprehend, needing much reassurance and reorienting. Calls made and sitter found to stay c pt.
--- NOTE | 2020-11-04 20:35 | PC.NURSE ---
Patient blood glucose 62. Doctor and lab notified. Patient symptomatic-increased confusion and diapharetic. Provided food to raise glucose level.
[2020-11-04 20:43] LABS: Glucose 60 mg/dL (70-99)
[2020-11-04 20:45] LABS: Glucose Point of Care 62 (65-105)
[2020-11-04 20:55] LABS: Glucose Point of Care 73 (65-105)
[2020-11-04] MEDS: clonazePAM (*CRX) 0.5 MG TABLET PO (21:52)
[2020-11-04] MEDS: ATORVASTATIN 40 MG TABLET PO (21:52)
[2020-11-05] VITALS: BP 115/65; PULSE 65; TEMP 36.6; O2SAT 99
[2020-11-05 00:22] LABS: Glucose Point of Care 92 (65-105)
[2020-11-05] MEDS: CARBIDOPA/LEVODOPA 25/100 MG TABLET 2 TABLET PO ×8 (03:00→20:37)
[2020-11-05 08:00] VITALS: BP 141/62; PULSE 69; RESP 18; TEMP 36.9; O2SAT 96
[2020-11-05] MEDS: ASPIRIN 81 MG ENTERIC TABLET PO (10:17)
[2020-11-05] MEDS: polyethylene glycoL 3350 17 GM POWD.PACK PO (10:17)
[2020-11-05] MEDS: ENTACAPONE 200 MG TABLET PO ×3 (10:18→16:54)
[2020-11-05] MEDS: DOCUSATE SODIUM 100 MG CAPSULE PO ×2 (10:18→16:54)
[2020-11-05] MEDS: SERTRALINE HCL 50 MG TABLET 100 MG PO (10:18)
[2020-11-05] MEDS: amLODIPine BESYLATE 5 MG TABLET 10 MG PO (10:18)
[2020-11-05] MEDS: VITAMIN B COMPLEX CAPSULE 1 CAP PO (10:18)
[2020-11-05] MEDS: GABAPENTIN 100 MG CAPSULE PO ×3 (10:19→16:54)
[2020-11-05] MEDS: INSULIN HUMAN ISOPHAN/REGULAR 70/30 (*BKC) 100 UNITS/ML 40 UNITS SUB-Q (10:20)
[2020-11-05] MEDS: metFORMIN HCL 500 MG TABLET 1000 MG PO ×2 (10:20→16:54)
[2020-11-05] MEDS: LOSARTAN POTASSIUM 50 MG TABLET PO (10:20)
[2020-11-05 11:42] LABS: Glucose Point of Care 239 (65-105)
[2020-11-05] MEDS: ALPRAZolam (*CRX) 0.25 MG TABLET PO (13:55)
--- NOTE | 2020-11-05 14:27 | P.PNCROSS_ITS ---
Event Note Event Note Event Note: Discussed with Dr. Scott pt condition which is agitation with confusion today. I had called the Pt's Neurologist provider who wanted his Sinemet 25/100 2 tabs Q3H along with Sinemet/Entacapone 50/200/200 QID. After a couple days of having this regimen the Pt is now quite agitated and confused thinking that he is in a waiting room for an eye appointment, then thinking he is at home in the kitchen, asking for staff to hand him pliers off the floor (which was not there) so he could take a table apart. I gave the Pt 0.25 mg Xanax which after a half hour has not done much for the Pt and at this point staff development educator requested a sitter at the bedside. Dr. Scott and I have agreed to reduce the Q3H Sinemet at this time. Will continue to monitor Pt. <Roosevelt Aguilar APN-C - Last Filed: 11/05/20 14:32>
[2020-11-05] MEDS: LORazepam INJ (*CRX) 2 MG/ML VIAL 1 MG IM (15:13)
[2020-11-05 16:00] VITALS: BP 119/65; PULSE 81; RESP 20; TEMP 37.2; O2SAT 96
[2020-11-05 16:53] LABS: Glucose Point of Care 67 (65-105)
[2020-11-05] MEDS: SERTRALINE HCL 50 MG TABLET PO (16:54)
[2020-11-05 17:15] LABS: Add Urine Microscopic? YES; Appearance Urine Clear (Clear); Bilirubin Urine Negative (Negative); Blood Urine Negative (Negative); Glucose Urine UA Trace (Negative); Ketones Urine Trace (Negative); Leukocyte Esterase Ur Negative (Negative); Nitrate Urine Negative (Negative); Protein Urine 1+ (Negative); Urobilinogen Urine 0.2 mg/dL (0.2-1.0)
[2020-11-05 17:21] LABS: Bacteria Urine None seen /hpf; Color Urine Amber (Yellow); RBC Urine None seen /hpf (0-2); Squamous Epithelial Cell Urine Rare /hpf (Few); WBC Urine None seen /hpf (0-3)
[2020-11-05 19:38] VITALS: BP 119/62; PULSE 82; RESP 18; TEMP 36.7; O2SAT 94
[2020-11-05 20:24] LABS: Glucose Point of Care 144 (65-105)
[2020-11-05] MEDS: ATORVASTATIN 40 MG TABLET PO (20:37)
[2020-11-05] MEDS: clonazePAM (*CRX) 0.5 MG TABLET PO (20:37)
[2020-11-05] MEDS: INSULIN HUMAN NPH (*BKC) 100 UNITS/ML 25 UNITS SUB-Q (20:38)
--- NOTE | 2020-11-05 21:00 | PC.NURSE ---
Patient's spouse, Maria A, did not want patient's Entacapone given this evening. States patient should be receiving both dose of the Entacapone throughout the day time with 1500 being the last dose. Patient's wrote out patients medication list and times medications should be given. Dr. Scott notified.
[2020-11-06] VITALS: BP 143/73; PULSE 61; RESP 18; TEMP 36.5; O2SAT 96
--- NOTE | 2020-11-06 00:51 | PC.NURSE ---
Awakened with nursing care. Was reaching up and grasping at ceiling for 10 minutes before resuming sleep.
--- NOTE | 2020-11-06 02:12 | PC.NURSE ---
Sleeping, skin pink, warm, dry. Respirations easy/unlabored. Bed alarm on for safety.
--- NOTE | 2020-11-06 03:37 | PC.NURSE ---
Sleeping, no signs of distress. Has not voided.
[2020-11-06 07:33] LABS: Glucose Point of Care 130 (65-105)
[2020-11-06 07:37] VITALS: BP 170/81; PULSE 68; RESP 16; TEMP 36.4; O2SAT 95
[2020-11-06] MEDS: polyethylene glycoL 3350 17 GM POWD.PACK PO (08:29)
[2020-11-06] MEDS: ASPIRIN 81 MG ENTERIC TABLET PO (08:32)
[2020-11-06] MEDS: VITAMIN B COMPLEX CAPSULE 1 CAP PO (08:33)
[2020-11-06] MEDS: metFORMIN HCL 500 MG TABLET 1000 MG PO ×2 (08:33→17:47)
[2020-11-06] MEDS: LOSARTAN POTASSIUM 50 MG TABLET PO (08:34)
[2020-11-06] MEDS: SERTRALINE HCL 50 MG TABLET 100 MG PO (08:34)
[2020-11-06] MEDS: DOCUSATE SODIUM 100 MG CAPSULE PO ×2 (08:35→17:47)
[2020-11-06] MEDS: amLODIPine BESYLATE 5 MG TABLET 10 MG PO (08:35)
[2020-11-06] MEDS: GABAPENTIN 100 MG CAPSULE PO ×3 (08:36→17:47)
[2020-11-06] MEDS: CARBIDOPA/LEVODOPA 25/100 MG TABLET 2 TABLET PO ×4 (08:36→20:51)
[2020-11-06] MEDS: INSULIN HUMAN ISOPHAN/REGULAR 70/30 (*BKC) 100 UNITS/ML 40 UNITS SUB-Q (09:03)
[2020-11-06] MEDS: ENTACAPONE 200 MG TABLET PO ×2 (09:10→17:47)
[2020-11-06 12:06] LABS: Glucose Point of Care 177 (65-105)
[2020-11-06 15:50] VITALS: BP 119/72; PULSE 73; RESP 18; TEMP 36.7; O2SAT 100
[2020-11-06 17:04] LABS: Glucose Point of Care 112 (65-105)
[2020-11-06] MEDS: SERTRALINE HCL 50 MG TABLET PO (17:47)
[2020-11-06 20:33] VITALS: BP 155/69; PULSE 70; RESP 18; TEMP 36.8; O2SAT 94
[2020-11-06] MEDS: ATORVASTATIN 40 MG TABLET PO (20:50)
[2020-11-06] MEDS: clonazePAM (*CRX) 0.5 MG TABLET PO (20:51)
[2020-11-06 20:55] LABS: Glucose Point of Care 76 (65-105)
[2020-11-07] VITALS: BP 128/86; PULSE 66; RESP 20; TEMP 37; O2SAT 93
[2020-11-07 05:43] LABS: Hematocrit 38.1 % (40.0-54.0); Mean Corpuscular HGB Conc 31.5 g/dL (32.0-36.0); Mean Corpuscular Hemoglobin 26.5 pg (27.0-31.0); Mean Corpuscular Volume 84.3 fL (78.0-102.0); Platelet Count Result 241 K/mm3 (150-420); Red Blood Count 4.52 M/mm3 (4.70-6.10); Red Cell Distribution Width 13.3 % (11.6-14.4)
[2020-11-07 06:35] LABS: Anion Gap 9 mmol/L (8-16); Blood Urea Nitrogen 22 mg/dL (7-18); Calcium 9.2 mg/dL (8.5-10.1); Carbon Dioxide 27 mmol/L (21-32); Chloride 102 mmol/L (98-108); Estimated Glomerular Filt Rate > 60; Glucose 148 mg/dL (70-99); Osmolality Calculated 292 mOsm/kg (285-295); Potassium 4.9 mmol/L (3.5-5.1); Sodium 138 mmol/L (136-145)
[2020-11-07 07:35] LABS: Glucose Point of Care 191 (65-105)
[2020-11-07 08:00] VITALS: BP 140/71; PULSE 65; RESP 20; TEMP 36.7; O2SAT 96
[2020-11-07] MEDS: INSULIN HUMAN ISOPHAN/REGULAR 70/30 (*BKC) 100 UNITS/ML 40 UNITS SUB-Q (08:17)
[2020-11-07] MEDS: polyethylene glycoL 3350 17 GM POWD.PACK PO (08:19)
[2020-11-07] MEDS: ASPIRIN 81 MG ENTERIC TABLET PO (08:20)
[2020-11-07] MEDS: VITAMIN B COMPLEX CAPSULE 1 CAP PO (08:21)
[2020-11-07] MEDS: GABAPENTIN 100 MG CAPSULE PO ×3 (08:21→16:35)
[2020-11-07] MEDS: CARBIDOPA/LEVODOPA 25/100 MG TABLET 2 TABLET PO ×4 (08:21→21:02)
[2020-11-07] MEDS: amLODIPine BESYLATE 5 MG TABLET 10 MG PO (08:21)
[2020-11-07] MEDS: LOSARTAN POTASSIUM 50 MG TABLET PO (08:21)
[2020-11-07] MEDS: DOCUSATE SODIUM 100 MG CAPSULE PO ×2 (08:21→16:35)
[2020-11-07] MEDS: SERTRALINE HCL 50 MG TABLET 100 MG PO (08:22)
[2020-11-07] MEDS: metFORMIN HCL 500 MG TABLET 1000 MG PO ×2 (08:22→16:35)
[2020-11-07] MEDS: ENTACAPONE 200 MG TABLET PO ×2 (08:23→16:35)
--- NOTE | 2020-11-07 08:48 | PC.NURSE ---
Elizabeth De Anda used to get patient from chair to BSC
--- NOTE | 2020-11-07 09:03 | PC.NURSE ---
large soft BM mixed with urine in commode, OT assisted to get patient from BSC back to chair using [employer]
[2020-11-07 11:52] LABS: Glucose Point of Care 181 (65-105)
[2020-11-07 16:00] VITALS: BP 102/52; PULSE 67; RESP 18; TEMP 36.7; O2SAT 96
[2020-11-07] MEDS: SERTRALINE HCL 50 MG TABLET PO (16:35)
[2020-11-07 16:49] LABS: Glucose Point of Care 324 (65-105)
[2020-11-07] MEDS: ATORVASTATIN 40 MG TABLET PO (20:58)
[2020-11-07 21:01] LABS: Glucose Point of Care 200 (65-105)
[2020-11-07] MEDS: INSULIN HUMAN NPH (*BKC) 100 UNITS/ML 25 UNITS SUB-Q (21:02)
[2020-11-07] MEDS: clonazePAM (*CRX) 0.5 MG TABLET PO (21:39)
[2020-11-08] VITALS: BP 123/78; PULSE 66; RESP 18; TEMP 36.6; O2SAT 96
[2020-11-08] MEDS: CARBIDOPA/LEVODOPA 25/100 MG TABLET 2 TABLET PO ×5 (05:32→21:11)
[2020-11-08 07:57] LABS: Glucose Point of Care 162 (65-105)
[2020-11-08 08:00] VITALS: BP 164/79; PULSE 67; RESP 20; TEMP 36.3; O2SAT 96
[2020-11-08] MEDS: INSULIN HUMAN ISOPHAN/REGULAR 70/30 (*BKC) 100 UNITS/ML 40 UNITS SUB-Q (08:24)
[2020-11-08] MEDS: ENTACAPONE 200 MG TABLET PO ×2 (08:25→17:29)
[2020-11-08] MEDS: VITAMIN B COMPLEX CAPSULE 1 CAP PO (08:25)
[2020-11-08] MEDS: amLODIPine BESYLATE 5 MG TABLET 10 MG PO (08:26)
[2020-11-08] MEDS: GABAPENTIN 100 MG CAPSULE PO ×3 (08:26→17:26)
[2020-11-08] MEDS: metFORMIN HCL 500 MG TABLET 1000 MG PO ×2 (08:26→17:25)
[2020-11-08] MEDS: SERTRALINE HCL 50 MG TABLET 100 MG PO (08:26)
[2020-11-08] MEDS: ASPIRIN 81 MG ENTERIC TABLET PO (08:26)
[2020-11-08] MEDS: DOCUSATE SODIUM 100 MG CAPSULE PO ×2 (08:27→17:25)
[2020-11-08] MEDS: LOSARTAN POTASSIUM 50 MG TABLET PO (08:27)
[2020-11-08 11:39] LABS: Glucose Point of Care 148 (65-105)
[2020-11-08 15:07] VITALS: BP 110/55; PULSE 61; RESP 20; TEMP 36.5; O2SAT 97
--- NOTE | 2020-11-08 16:00 | PC.NURSE ---
Pt. sitting up in recliner chair, alert x2, call rod in reach. PT here to exercise c pt. Pt. hitesh well. Pt. watching tv and advised to call nurse if needed.
[2020-11-08 16:18] LABS: Glucose Point of Care 171 (65-105)
[2020-11-08] MEDS: SERTRALINE HCL 50 MG TABLET PO (17:30)
--- NOTE | 2020-11-08 18:49 | PC.NURSE ---
pt. assisted c sit to stand back to bed. call rod in reach.
[2020-11-08] MEDS: clonazePAM (*CRX) 0.5 MG TABLET PO (21:11)
[2020-11-08] MEDS: ATORVASTATIN 40 MG TABLET PO (21:12)
[2020-11-08 21:18] LABS: Glucose Point of Care 167 (65-105)
[2020-11-08] MEDS: INSULIN HUMAN NPH (*BKC) 100 UNITS/ML 25 UNITS SUB-Q (21:18)
--- NOTE | 2020-11-08 21:25 | PC.NURSE ---
Pt. sitting up in bed, elizabeth crackers given per pt. request, watching TV.
[2020-11-08 23:39] VITALS: BP 138/59; PULSE 58; RESP 16; TEMP 36.6; O2SAT 95
[2020-11-09] MEDS: CARBIDOPA/LEVODOPA 25/100 MG TABLET 2 TABLET PO ×5 (04:20→21:39)
[2020-11-09 08:00] VITALS: BP 114/78; PULSE 58; RESP 18; TEMP 36.8; O2SAT 96
[2020-11-09] MEDS: polyethylene glycoL 3350 17 GM POWD.PACK PO (09:10)
[2020-11-09] MEDS: ASPIRIN 81 MG ENTERIC TABLET PO (09:11)
[2020-11-09] MEDS: LOSARTAN POTASSIUM 50 MG TABLET PO (09:11)
[2020-11-09] MEDS: DOCUSATE SODIUM 100 MG CAPSULE PO ×2 (09:11→17:49)
[2020-11-09] MEDS: GABAPENTIN 100 MG CAPSULE PO ×3 (09:11→17:49)
[2020-11-09] MEDS: amLODIPine BESYLATE 5 MG TABLET 10 MG PO (09:11)
[2020-11-09] MEDS: metFORMIN HCL 500 MG TABLET 1000 MG PO ×2 (09:11→17:48)
[2020-11-09] MEDS: VITAMIN B COMPLEX CAPSULE 1 CAP PO (09:12)
[2020-11-09] MEDS: ENTACAPONE 200 MG TABLET PO ×2 (09:13→17:49)
[2020-11-09] MEDS: INSULIN HUMAN ISOPHAN/REGULAR 70/30 (*BKC) 100 UNITS/ML 40 UNITS SUB-Q (09:14)
[2020-11-09 11:34] LABS: Glucose Point of Care 213 (65-105)
[2020-11-09 15:58] VITALS: BP 114/78; PULSE 58; RESP 18; TEMP 36.8; O2SAT 96
[2020-11-09 16:41] LABS: Glucose Point of Care 109 (65-105)
[2020-11-09 16:56] LABS: Glucose Point of Care 155 (65-105)
[2020-11-09] MEDS: SERTRALINE HCL 50 MG TABLET PO (17:51)
[2020-11-09] MEDS: clonazePAM (*CRX) 0.5 MG TABLET PO (21:39)
[2020-11-09] MEDS: ATORVASTATIN 40 MG TABLET PO (21:39)
[2020-11-09] MEDS: INSULIN HUMAN NPH (*BKC) 100 UNITS/ML 25 UNITS SUB-Q (21:40)
[2020-11-09 21:58] LABS: Glucose Point of Care 187 (65-105)
[2020-11-10] VITALS: BP 128/71; PULSE 60; RESP 18; TEMP 36.4; O2SAT 96
[2020-11-10] MEDS: CARBIDOPA/LEVODOPA 25/100 MG TABLET 2 TABLET PO ×5 (05:43→22:00)
[2020-11-10 07:53] LABS: Glucose Point of Care 140 (65-105)
[2020-11-10 08:00] VITALS: BP 132/77; PULSE 61; RESP 18; TEMP 36.3; O2SAT 97
[2020-11-10] MEDS: ACETAMINOPHEN 500 MG TABLET 1000 MG PO (08:25)
[2020-11-10 09:02] LABS: Hematocrit 37.6 % (40.0-54.0); Mean Corpuscular HGB Conc 31.9 g/dL (32.0-36.0); Mean Corpuscular Hemoglobin 26.5 pg (27.0-31.0); Mean Corpuscular Volume 83.2 fL (78.0-102.0); Mean Platelet Volume 9.9 fl (8.7-11.0); Platelet Count Result 247 K/mm3 (150-420); Red Blood Count 4.52 M/mm3 (4.70-6.10); Red Cell Distribution Width 13.2 % (11.6-14.4)
[2020-11-10 09:16] LABS: Alanine Aminotransferase 12 U/L (16-63); Albumin Level 3.6 g/dL (3.4-5.0); Alkaline Phosphatase 93 U/L (46-116); Anion Gap 6 mmol/L (8-16); Aspartate Amino Transferase 13 U/L (15-37); Bilirubin,Total 0.5 mg/dL (0.00-1.00); Blood Urea Nitrogen 22 mg/dL (7-18); Calcium 8.9 mg/dL (8.5-10.1); Carbon Dioxide 28 mmol/L (21-32); Chloride 101 mmol/L (98-108); Estimated Glomerular Filt Rate > 60; Glucose 211 mg/dL (70-99); Osmolality Calculated 289 mOsm/kg (285-295); Potassium 4.3 mmol/L (3.5-5.1); Sodium 135 mmol/L (136-145); Total Protein 7.2 g/dL (6.4-8.2)
[2020-11-10] MEDS: SERTRALINE HCL 50 MG TABLET 100 MG PO (09:20)
[2020-11-10] MEDS: ASPIRIN 81 MG ENTERIC TABLET PO (09:20)
[2020-11-10] MEDS: LOSARTAN POTASSIUM 50 MG TABLET PO (09:21)
[2020-11-10] MEDS: VITAMIN B COMPLEX CAPSULE 1 CAP PO (09:21)
[2020-11-10] MEDS: amLODIPine BESYLATE 5 MG TABLET 10 MG PO (09:21)
[2020-11-10] MEDS: metFORMIN HCL 500 MG TABLET 1000 MG PO ×2 (09:21→17:10)
[2020-11-10] MEDS: ENTACAPONE 200 MG TABLET PO ×2 (09:21→17:11)
[2020-11-10] MEDS: DOCUSATE SODIUM 100 MG CAPSULE PO (09:21)
[2020-11-10] MEDS: GABAPENTIN 100 MG CAPSULE PO ×3 (09:21→17:11)
--- NOTE | 2020-11-10 10:48 | WPDPN ---
Progress Note: A&P Assessment and Plan (1) Weakness generalized: Code(s): R53.1 - Weakness Status: Acute Assessment and Plan: ? Exhibit tolerance during physical activity as evidenced by a normal fluctuation of vital signs during physical activity. ? Patient will be ability to perform required activities of daily living. ? Provide appropriate nutrition for healing and strength. ? Use appropriate to prevent falls. ? Continue physical therapy/occupational therapy. (2) Urinary incontinence: Code(s): R32 - Unspecified urinary incontinence Status: Acute Assessment and Plan: Pt will have ability to contact staff in the event he realizes he needs to use the restroom, Continue use of briefs (3) DM2 (diabetes mellitus, type 2): Code(s): E11.9 - Type 2 diabetes mellitus without complications Status: Acute Assessment and Plan: Blood sugars less than 300 Continue home medication glucose monitoring, consistent carb diet, hypoglycemic protocol (4) Parkinsons disease: Code(s): G20 - Parkinson's disease Status: Acute Assessment and Plan: Continue Parkinson medications, monitor Pt, Pt working with PT/OT (5) Neuropathy: Code(s): G62.9 - Polyneuropathy, unspecified Status: Acute Assessment and Plan: Continue gabapentin (6) Hyperlipidemia: Code(s): E78.5 - Hyperlipidemia, unspecified Status: Acute Assessment and Plan: Continue Atorvastatin, ASA (7) Hypertension: Code(s): I10 - Essential (primary) hypertension Status: Acute Assessment and Plan: Stable Continue Amlodipine and Losartan, monitor VS and make adjustments to medications as needed. Review of Systems Review of Systems: Narrative: A 14 organ system Review of Systems was performed and pertinent positives included in the HPI, otherwise remaining ROS is negative. Exam Narrative: Exam Narrative: GENERAL: This is a well-nourished, well-developed patient, in no apparent distress. HEAD: normocephalic, atraumatic. Old surgical scar to right frontal skull with stimulator placement EYES: PERRL. Sclera clear/white. Vision is grossly intact. EARS: External ears normal, auditory canals clear and without drainage, TMs normal without perforation. Hearing grossly intact. NOSE: External nose normal with no obvious nasal discharge, nares without redness, no rhinorrhea. THROAT: Mucous membranes moist, posterior pharynx clear. NECK: Neck supple, non-tender without lymphadenopathy, masses or thyromegaly. CARDIOVASCULAR: Regular rate and rhythm without murmurs, gallops, or rubs. RESPIRATORY: Clear to auscultation. Breath sounds equal bilaterally. No wheezes, rales, or rhonchi. GASTROINTESTINAL: Abdomen soft, non-tender, nondistended. Bowel sounds are active. No hepato-splenomegaly, or palpable masses. No guarding. SKIN: warm, intact with no suspicious lesions or rash, good texture and turgor. Stimulated to the right chest NEURO: awake, alert, and oriented to person, place and time. EXTREMITIES: Normal range of motion. No edema. No calf tenderness. Negative Homans sign bilaterally. BACK: Nontender without deformity or crepitance. No flank tenderness. Objective Data Vital Signs Vital Signs: Vital Signs - 24 hr 11/09/20 15:58 11/10/20 00:00 11/10/20 08:00 Temperature 98.2 F 97.6 F 97.4 F L Pulse Rate 58 L 60 61 Respiratory Rate 18 18 18 Blood Pressure 114/78 128/71 132/77 Pulse Oximetry 96 96 97 Intake/Output Intake/Output: Intake & Output 11/07/20 11/08/20 11/09/20 11/10/20 23:59 23:59 23:59 23:59 Intake Total 1850 1580 2030 680 Output Total 4 200 550 Balance 1846 1580 1830 130 Meds/Results Medications: Active Medications Generic Name Dose Route Start Last Admin Trade Name Freq PRN Reason Stop Dose Admin Acetaminophen 650 mg 11/10/20 08:00 Acetaminophen 325 Mg Tablet PO Q4H PRN Mild Pain (1-3) or Fever
[2020-11-10 11:39] LABS: Glucose Point of Care 245 (65-105)
[2020-11-10] MEDS: INSULIN HUMAN ISOPHAN/REGULAR 70/30 (*BKC) 100 UNITS/ML 40 UNITS SUB-Q (11:47)
[2020-11-10 15:49] VITALS: BP 100/62; PULSE 66; RESP 18; TEMP 36.6; O2SAT 100
[2020-11-10 16:49] LABS: Glucose Point of Care 193 (65-105)
[2020-11-10] MEDS: SERTRALINE HCL 50 MG TABLET PO (17:11)
[2020-11-10] MEDS: INSULIN HUMAN NPH (*BKC) 100 UNITS/ML 25 UNITS SUB-Q (22:00)
[2020-11-10] MEDS: clonazePAM (*CRX) 0.5 MG TABLET PO (22:00)
[2020-11-10] MEDS: ATORVASTATIN 40 MG TABLET PO (22:00)
[2020-11-10 22:06] LABS: Glucose Point of Care 153 (65-105)
[2020-11-11] VITALS: BP 109/60; PULSE 65; RESP 18; TEMP 36.4; O2SAT 96
[2020-11-11] MEDS: CARBIDOPA/LEVODOPA 25/100 MG TABLET 2 TABLET PO ×5 (06:12→20:31)
[2020-11-11 07:51] LABS: Glucose Point of Care 132 (65-105)
[2020-11-11 08:00] VITALS: BP 135/74; PULSE 63; RESP 18; TEMP 37.1; O2SAT 95
[2020-11-11] MEDS: INSULIN HUMAN ISOPHAN/REGULAR 70/30 (*BKC) 100 UNITS/ML 40 UNITS SUB-Q (08:52)
[2020-11-11] MEDS: polyethylene glycoL 3350 17 GM POWD.PACK PO (08:53)
[2020-11-11 08:55] VITALS: BMI 31.5
[2020-11-11] MEDS: ASPIRIN 81 MG ENTERIC TABLET PO (08:55)
[2020-11-11] MEDS: GABAPENTIN 100 MG CAPSULE PO ×3 (08:55→16:59)
[2020-11-11] MEDS: metFORMIN HCL 500 MG TABLET 1000 MG PO ×2 (08:55→16:59)
[2020-11-11] MEDS: VITAMIN B COMPLEX CAPSULE 1 CAP PO (08:55)
[2020-11-11] MEDS: LOSARTAN POTASSIUM 50 MG TABLET PO (08:56)
[2020-11-11] MEDS: ENTACAPONE 200 MG TABLET PO ×2 (08:56→17:56)
[2020-11-11] MEDS: DOCUSATE SODIUM 100 MG CAPSULE PO ×2 (08:56→16:59)
[2020-11-11] MEDS: amLODIPine BESYLATE 5 MG TABLET 10 MG PO (08:56)
[2020-11-11] MEDS: SERTRALINE HCL 50 MG TABLET 100 MG PO (08:56)
[2020-11-11 12:03] LABS: Glucose Point of Care 221 (65-105)
[2020-11-11 16:00] VITALS: BP 138/70; PULSE 63; RESP 18; TEMP 37.2; O2SAT 97
[2020-11-11 16:45] LABS: Glucose Point of Care 175 (65-105)
[2020-11-11] MEDS: SERTRALINE HCL 50 MG TABLET PO (17:56)
[2020-11-11] MEDS: clonazePAM (*CRX) 0.5 MG TABLET PO (20:31)
[2020-11-11] MEDS: INSULIN HUMAN NPH (*BKC) 100 UNITS/ML 25 UNITS SUB-Q (20:31)
[2020-11-11] MEDS: ATORVASTATIN 40 MG TABLET PO (20:31)
[2020-11-12] VITALS: BP 153/73; PULSE 60; RESP 20; TEMP 36.6; O2SAT 95
--- NOTE | 2020-11-12 00:45 | PC.NURSE ---
Pt inc very lg amt urine. Pt assisted with turning from side to side in bed. Inc care provided.
[2020-11-12] MEDS: CARBIDOPA/LEVODOPA 25/100 MG TABLET 2 TABLET PO ×5 (04:39→20:42)
--- NOTE | 2020-11-12 04:52 | PC.NURSE ---
Inc care provided. Continues to assist with positioning.
[2020-11-12 08:00] VITALS: BP 136/72; PULSE 64; RESP 20; TEMP 36.6; O2SAT 95
[2020-11-12 08:22] LABS: Glucose Point of Care 115 (65-105)
[2020-11-12] MEDS: polyethylene glycoL 3350 17 GM POWD.PACK PO (08:54)
[2020-11-12] MEDS: GABAPENTIN 100 MG CAPSULE PO ×3 (08:55→16:47)
[2020-11-12] MEDS: SERTRALINE HCL 50 MG TABLET 100 MG PO (08:55)
[2020-11-12] MEDS: DOCUSATE SODIUM 100 MG CAPSULE PO ×2 (08:57→16:47)
[2020-11-12] MEDS: ASPIRIN 81 MG ENTERIC TABLET PO (08:57)
[2020-11-12] MEDS: metFORMIN HCL 500 MG TABLET 1000 MG PO ×2 (08:57→16:47)
[2020-11-12] MEDS: VITAMIN B COMPLEX CAPSULE 1 CAP PO (08:57)
[2020-11-12] MEDS: LOSARTAN POTASSIUM 50 MG TABLET PO (08:57)
[2020-11-12] MEDS: amLODIPine BESYLATE 5 MG TABLET 10 MG PO (08:57)
[2020-11-12] MEDS: ENTACAPONE 200 MG TABLET PO ×2 (08:58→18:14)
[2020-11-12 11:46] LABS: Glucose Point of Care 195 (65-105)
[2020-11-12 16:00] VITALS: BP 146/84; PULSE 64; RESP 20; TEMP 36.8; O2SAT 97
[2020-11-12 16:41] LABS: Glucose Point of Care 216 (65-105)
[2020-11-12] MEDS: SERTRALINE HCL 50 MG TABLET PO (18:14)
[2020-11-12] MEDS: clonazePAM (*CRX) 0.5 MG TABLET PO (20:42)
[2020-11-12] MEDS: ATORVASTATIN 40 MG TABLET PO (20:42)
[2020-11-12] MEDS: INSULIN HUMAN NPH (*BKC) 100 UNITS/ML 25 UNITS SUB-Q (20:54)
[2020-11-12 21:09] LABS: Glucose Point of Care 234 (65-105)
[2020-11-13] VITALS: BP 146/74; PULSE 60; RESP 20; TEMP 36.3; O2SAT 96
--- NOTE | 2020-11-13 | PC.NURSE ---
Inc amt urine. Inc care provided.
--- NOTE | 2020-11-13 00:30 | PC.NURSE ---
Pt getting out of bed. To chairdiac chair with gait belt walker & assist of two.
--- NOTE | 2020-11-13 01:35 | PC.NURSE ---
Pt attempting to get out of cardiac chair. Pt stated he wanted ti out his overalls on. Oriented pt to hospital setting. Assisted back into bed with walker & assist of two. Cleansed of inc of urine several x's. Bed alarm on.
[2020-11-13] MEDS: CARBIDOPA/LEVODOPA 25/100 MG TABLET 2 TABLET PO ×5 (04:56→21:03)
[2020-11-13 05:42] LABS: Hematocrit 35.3 % (40.0-54.0); Hemoglobin 11.6 g/dL (14.0-18.0); Mean Corpuscular HGB Conc 32.9 g/dL (32.0-36.0); Mean Corpuscular Hemoglobin 27.1 pg (27.0-31.0); Mean Corpuscular Volume 82.5 fL (78.0-102.0); Mean Platelet Volume 10.5 fl (8.7-11.0); Platelet Count Result 215 K/mm3 (150-420); Red Blood Count 4.28 M/mm3 (4.70-6.10); Red Cell Distribution Width 13.2 % (11.6-14.4); White Blood Count 5.3 K/mm3 (4.8-10.8)
[2020-11-13 06:04] LABS: Alanine Aminotransferase 16 U/L (16-63); Albumin Level 3.4 g/dL (3.4-5.0); Alkaline Phosphatase 93 U/L (46-116); Anion Gap 7 mmol/L (8-16); Aspartate Amino Transferase 18 U/L (15-37); Bilirubin,Total 0.4 mg/dL (0.00-1.00); Blood Urea Nitrogen 19 mg/dL (7-18); Calcium 8.9 mg/dL (8.5-10.1); Carbon Dioxide 28 mmol/L (21-32); Chloride 103 mmol/L (98-108); Estimated CRCL calculation 91 ml/min; Estimated Glomerular Filt Rate > 60; Glucose 241 mg/dL (70-99); Osmolality Calculated 296 mOsm/kg (285-295); Potassium 4.4 mmol/L (3.5-5.1); Sodium 138 mmol/L (136-145); Total Protein 6.9 g/dL (6.4-8.2)
[2020-11-13 07:53] LABS: Glucose Point of Care 175 (65-105)
[2020-11-13 08:00] VITALS: BP 148/68; PULSE 60; RESP 18; TEMP 36.3; O2SAT 96
[2020-11-13] MEDS: INSULIN HUMAN ISOPHAN/REGULAR 70/30 (*BKC) 100 UNITS/ML 40 UNITS SUB-Q (08:40)
[2020-11-13] MEDS: DOCUSATE SODIUM 100 MG CAPSULE PO ×2 (08:43→17:19)
[2020-11-13] MEDS: GABAPENTIN 100 MG CAPSULE PO ×3 (08:43→17:19)
[2020-11-13] MEDS: amLODIPine BESYLATE 5 MG TABLET 10 MG PO (08:43)
[2020-11-13] MEDS: SERTRALINE HCL 50 MG TABLET 100 MG PO (08:43)
[2020-11-13] MEDS: metFORMIN HCL 500 MG TABLET 1000 MG PO ×2 (08:44→17:19)
[2020-11-13] MEDS: ENTACAPONE 200 MG TABLET PO ×2 (08:44→17:20)
[2020-11-13] MEDS: VITAMIN B COMPLEX CAPSULE 1 CAP PO (08:44)
[2020-11-13] MEDS: LOSARTAN POTASSIUM 50 MG TABLET PO (08:44)
[2020-11-13] MEDS: ASPIRIN 81 MG ENTERIC TABLET PO (08:44)
[2020-11-13 11:35] LABS: Glucose Point of Care 258 (65-105)
[2020-11-13] MEDS: SIMETHICONE 80 MG TAB.CHEW PO ×4 (12:30→21:03)
[2020-11-13 16:00] VITALS: BP 130/67; PULSE 66; RESP 18; TEMP 36.7; O2SAT 98
[2020-11-13 16:28] LABS: Glucose Point of Care 182 (65-105)
[2020-11-13] MEDS: SERTRALINE HCL 50 MG TABLET PO (17:19)
--- NOTE | 2020-11-13 17:32 | PCOTNOTE ---
OT attempted to see patient for PM treatment however patient refused as he was eating dinner. OT to see patient in the morning. MS
[2020-11-13] MEDS: ATORVASTATIN 40 MG TABLET PO (21:03)
[2020-11-13] MEDS: clonazePAM (*CRX) 0.5 MG TABLET PO (21:03)
[2020-11-13 21:19] LABS: Glucose Point of Care 184 (65-105)
[2020-11-13] MEDS: INSULIN HUMAN NPH (*BKC) 100 UNITS/ML 25 UNITS SUB-Q (21:19)
[2020-11-13] MEDS: ACETAMINOPHEN 325 MG TABLET 650 MG PO (21:46)
[2020-11-14] VITALS: BP 132/68; PULSE 70; RESP 20; O2SAT 94
[2020-11-14] MEDS: CARBIDOPA/LEVODOPA 25/100 MG TABLET 2 TABLET PO ×5 (05:12→20:32)
[2020-11-14 07:26] LABS: Glucose Point of Care 124 (65-105)
[2020-11-14 08:00] VITALS: BP 130/65; PULSE 63; RESP 18; TEMP 36.6; O2SAT 96
[2020-11-14] MEDS: metFORMIN HCL 500 MG TABLET 1000 MG PO ×2 (09:33→17:15)
[2020-11-14] MEDS: VITAMIN B COMPLEX CAPSULE 1 CAP PO (09:33)
[2020-11-14] MEDS: SIMETHICONE 80 MG TAB.CHEW PO ×4 (09:33→20:33)
[2020-11-14] MEDS: LOSARTAN POTASSIUM 50 MG TABLET PO (09:34)
[2020-11-14] MEDS: ASPIRIN 81 MG ENTERIC TABLET PO (09:34)
[2020-11-14] MEDS: amLODIPine BESYLATE 5 MG TABLET 10 MG PO (09:34)
[2020-11-14] MEDS: SERTRALINE HCL 50 MG TABLET 100 MG PO (09:34)
[2020-11-14] MEDS: ENTACAPONE 200 MG TABLET PO ×2 (09:34→17:14)
[2020-11-14] MEDS: DOCUSATE SODIUM 100 MG CAPSULE PO ×2 (09:34→17:15)
[2020-11-14] MEDS: GABAPENTIN 100 MG CAPSULE PO ×3 (09:34→17:15)
[2020-11-14] MEDS: INSULIN HUMAN ISOPHAN/REGULAR 70/30 (*BKC) 100 UNITS/ML 40 UNITS SUB-Q (09:35)
[2020-11-14 11:30] LABS: Glucose Point of Care 212 (65-105)
[2020-11-14 16:00] VITALS: BP 124/78; PULSE 66; RESP 18; TEMP 36.7; O2SAT 98
[2020-11-14 16:57] LABS: Glucose Point of Care 146 (65-105)
[2020-11-14] MEDS: SERTRALINE HCL 50 MG TABLET PO (17:15)
[2020-11-14] MEDS: ATORVASTATIN 40 MG TABLET PO (20:33)
[2020-11-14] MEDS: clonazePAM (*CRX) 0.5 MG TABLET PO (20:33)
[2020-11-14] MEDS: INSULIN HUMAN NPH (*BKC) 100 UNITS/ML 25 UNITS SUB-Q (20:38)
[2020-11-14 20:40] LABS: Glucose Point of Care 238 (65-105)
[2020-11-15 00:47] VITALS: BP 144/72; PULSE 66; RESP 20; TEMP 36.4; O2SAT 95
[2020-11-15] MEDS: CARBIDOPA/LEVODOPA 25/100 MG TABLET 2 TABLET PO ×5 (05:31→20:57)
[2020-11-15 08:00] VITALS: BP 133/71; PULSE 64; RESP 20; TEMP 36.8; O2SAT 98
[2020-11-15 08:09] LABS: Glucose Point of Care 241 (65-105)
[2020-11-15] MEDS: INSULIN HUMAN ISOPHAN/REGULAR 70/30 (*BKC) 100 UNITS/ML 40 UNITS SUB-Q (08:44)
[2020-11-15] MEDS: polyethylene glycoL 3350 17 GM POWD.PACK PO (08:44)
[2020-11-15] MEDS: VITAMIN B COMPLEX CAPSULE 1 CAP PO (08:46)
[2020-11-15] MEDS: metFORMIN HCL 500 MG TABLET 1000 MG PO ×2 (08:46→17:20)
[2020-11-15] MEDS: SIMETHICONE 80 MG TAB.CHEW PO ×4 (08:46→20:57)
[2020-11-15] MEDS: ASPIRIN 81 MG ENTERIC TABLET PO (08:47)
[2020-11-15] MEDS: amLODIPine BESYLATE 5 MG TABLET 10 MG PO (08:47)
[2020-11-15] MEDS: SERTRALINE HCL 50 MG TABLET 100 MG PO (08:47)
[2020-11-15] MEDS: LOSARTAN POTASSIUM 50 MG TABLET PO (08:47)
[2020-11-15] MEDS: GABAPENTIN 100 MG CAPSULE PO ×3 (08:47→17:21)
[2020-11-15] MEDS: ENTACAPONE 200 MG TABLET PO ×2 (08:48→17:22)
[2020-11-15] MEDS: DOCUSATE SODIUM 100 MG CAPSULE PO ×2 (08:48→17:05)
[2020-11-15 12:07] LABS: Glucose Point of Care 233 (65-105)
[2020-11-15 16:00] VITALS: BP 128/74; PULSE 88; RESP 18; TEMP 36.6; O2SAT 96
[2020-11-15] MEDS: SERTRALINE HCL 50 MG TABLET PO (17:21)
[2020-11-15 17:29] LABS: Glucose Point of Care 153 (65-105)
[2020-11-15] MEDS: clonazePAM (*CRX) 0.5 MG TABLET PO (20:57)
[2020-11-15] MEDS: ATORVASTATIN 40 MG TABLET PO (20:57)
[2020-11-15] MEDS: INSULIN HUMAN NPH (*BKC) 100 UNITS/ML 25 UNITS SUB-Q (20:57)
[2020-11-15 21:09] LABS: Glucose Point of Care 153 (65-105)
--- NOTE | 2020-11-15 22:00 | PC.NURSE ---
pt wanted to sit in recliner, refused to have tray in front stating if you put that on me it will go flying, chair alarm in place and activated, pt states he understands he needs to use his call light to get up and not get up alone.
[2020-11-16 00:30] VITALS: BP 114/67; PULSE 63; RESP 18; TEMP 37.2; O2SAT 97
[2020-11-16 00:37] LABS: Glucose Point of Care 125 (65-105)
[2020-11-16 05:23] LABS: Hematocrit 36.5 % (40.0-54.0); Hemoglobin 11.8 g/dL (14.0-18.0); Mean Corpuscular HGB Conc 32.3 g/dL (32.0-36.0); Mean Corpuscular Hemoglobin 26.6 pg (27.0-31.0); Mean Corpuscular Volume 82.4 fL (78.0-102.0); Mean Platelet Volume 10.4 fl (8.7-11.0); Platelet Count Result 222 K/mm3 (150-420); Red Blood Count 4.43 M/mm3 (4.70-6.10); Red Cell Distribution Width 13.1 % (11.6-14.4); White Blood Count 6.4 K/mm3 (4.8-10.8)
[2020-11-16 05:33] LABS: Anion Gap 9 mmol/L (8-16); Blood Urea Nitrogen 20 mg/dL (7-18); Calcium 9.3 mg/dL (8.5-10.1); Carbon Dioxide 29 mmol/L (21-32); Chloride 104 mmol/L (98-108); Estimated CRCL calculation 90 ml/min; Estimated Glomerular Filt Rate > 60; Glucose 76 mg/dL (70-99); Osmolality Calculated 295 mOsm/kg (285-295); Potassium 4.1 mmol/L (3.5-5.1); Sodium 142 mmol/L (136-145)
[2020-11-16] MEDS: CARBIDOPA/LEVODOPA 25/100 MG TABLET 2 TABLET PO ×5 (05:37→21:20)
[2020-11-16 08:00] VITALS: BP 156/97; PULSE 64; RESP 16; TEMP 36.4; O2SAT 98
[2020-11-16 08:25] LABS: Glucose Point of Care 82 (65-105)
[2020-11-16] MEDS: polyethylene glycoL 3350 17 GM POWD.PACK PO (09:22)
[2020-11-16] MEDS: amLODIPine BESYLATE 5 MG TABLET 10 MG PO (09:22)
[2020-11-16] MEDS: VITAMIN B COMPLEX CAPSULE 1 CAP PO (09:22)
[2020-11-16] MEDS: metFORMIN HCL 500 MG TABLET 1000 MG PO ×2 (09:22→17:03)
[2020-11-16] MEDS: ASPIRIN 81 MG ENTERIC TABLET PO (09:22)
[2020-11-16] MEDS: LOSARTAN POTASSIUM 50 MG TABLET PO (09:23)
[2020-11-16] MEDS: GABAPENTIN 100 MG CAPSULE PO ×3 (09:23→17:04)
[2020-11-16] MEDS: SERTRALINE HCL 50 MG TABLET 100 MG PO (09:23)
[2020-11-16] MEDS: SIMETHICONE 80 MG TAB.CHEW PO ×4 (09:23→21:37)
[2020-11-16] MEDS: DOCUSATE SODIUM 100 MG CAPSULE PO ×2 (09:25→17:03)
[2020-11-16] MEDS: ENTACAPONE 200 MG TABLET PO ×2 (09:25→17:06)
[2020-11-16 11:56] LABS: Glucose Point of Care 194 (65-105)
[2020-11-16 15:40] VITALS: BP 132/73; PULSE 70; RESP 18; TEMP 37; O2SAT 97
[2020-11-16] MEDS: SERTRALINE HCL 50 MG TABLET PO (17:04)
[2020-11-16 17:24] LABS: Glucose Point of Care 242 (65-105)
[2020-11-16] MEDS: clonazePAM (*CRX) 0.5 MG TABLET PO (21:20)
[2020-11-16] MEDS: ATORVASTATIN 40 MG TABLET PO (21:20)
[2020-11-16] MEDS: ACETAMINOPHEN 500 MG TABLET 1000 MG PO (21:20)
[2020-11-16] MEDS: INSULIN HUMAN NPH (*BKC) 100 UNITS/ML 25 UNITS SUB-Q (21:22)
[2020-11-16 21:27] LABS: Glucose Point of Care 309 (65-105)
[2020-11-17] VITALS: BP 107/67; PULSE 65; RESP 14; TEMP 36.7; O2SAT 98
[2020-11-17 08:00] VITALS: BP 147/82; PULSE 69; RESP 20; TEMP 36.8; O2SAT 97
[2020-11-17 08:01] LABS: Glucose Point of Care 203 (65-105)
--- NOTE | 2020-11-17 08:16 | P.DS_ITS ---
DS: Admitting Diagnosis Admitting Diagnosis Admitting Diagnosis: generalized weakness, AMS, Parkinson <Roosevelt LastRoberto Aguilar APN-C - Last Filed: 11/17/20 12:35> DS: Discharge Diagnosis Discharge Diagnosis (1) Weakness generalized: Code(s): R53.1 - Weakness <Roosevelt LastRoberto Aguilar APN-C - Last Filed: 11/17/20 12:35> Status: Acute <Roosevelt LastRoberto Aguilar APN-C - Last Filed: 11/17/20 12:35> Assessment and Plan: ? Exhibit tolerance during physical activity as evidenced by a normal fluctuation of vital signs during physical activity. ? Patient will be ability to perform required activities of daily living. ? Provide appropriate nutrition for healing and strength. ? Use appropriate to prevent falls. ? Continue physical therapy/occupational therapy. 11/17/2020 Pt has been working with PT/OT, he will be DC'ed back home per the 's request with Lalo <Roosevelt Aguilar APN-C - Last Filed: 11/17/20 12:35> (2) Urinary incontinence: Code(s): R32 - Unspecified urinary incontinence <Roosevelt Aguilar APN-C - Last Filed: 11/17/20 12:35> Status: Acute <Roosevelt BerhaneRoberto Aguilar APN-C - Last Filed: 11/17/20 12:35> Assessment and Plan: * Pt will have ability to contact staff in the event he realizes he needs to use the restroom, * Continue use of briefs 11/17/2020 Continue to use briefs <Roosevelt Aguilar APN-C - Last Filed: 11/17/20 12:35> (3) DM2 (diabetes mellitus, type 2): Code(s): E11.9 - Type 2 diabetes mellitus without complications <Roosevelt Aguilar APN-C - Last Filed: 11/17/20 12:35> Status: Acute <Roosevelt BerhaneRoberto Aguilar APN-C - Last Filed: 11/17/20 12:35> Assessment and Plan: * Blood sugars less than 300 * Continue home medication glucose monitoring, consistent carb diet, hypoglycemic protocol 11/17/2020 DC with current home regimen <Roosevelt Aguilar APN-C - Last Filed: 11/17/20 12:35> (4) Parkinsons disease: Code(s): G20 - Parkinson's disease <Roosevelt Aguilar VACCINE KEY CUSTOMER LEADER-C - Last Filed: 12:35> Status: Acute <Roosevelt Aguilar VACCINE KEY CUSTOMER LEADER-C - Last Filed: 11/17/20 12:35> Assessment and Plan: * Continue Parkinson medications, monitor Pt, Pt working with PT/OT 11/17/2020 Parkinson medication was decreased d/t side effects, will DC Pt on new regimen <Roosevelt Aguilar VACCINE KEY CUSTOMER LEADER-C - Last Filed: 11/17/20 12:35> (5) Neuropathy: Code(s): G62.9 - Polyneuropathy, unspecified <Roosevelt Aguilar VACCINE KEY CUSTOMER LEADER-C - Last Filed: 11/17/20 12:35> Status: Acute <Roosevelt Aguilar VACCINE KEY CUSTOMER LEADER-C - Last Filed: 11/17/20 12:35> Assessment and Plan: * Continue gabapentin <Roosevelt Aguilar VACCINE KEY CUSTOMER LEADER-C - Last Filed: 11/17/20 12:35> (6) Hyperlipidemia: Code(s): E78.5 - Hyperlipidemia, unspecified <Roosevelt Aguilar VACCINE KEY CUSTOMER LEADER-C - Last Filed: 11/17/20 12:35> Status: Acute <Roosevelt Aguilar VACCINE KEY CUSTOMER LEADER-C - Last Filed: 11/17/20 12:35> Assessment and Plan: * Continue Atorvastatin, ASA <Roosevelt Aguilar VACCINE KEY CUSTOMER LEADER-C - Last Filed: 11/17/20 12:35> (7) Hypertension: Code(s): I10 - Essential (primary) hypertension <Roosevelt Aguilar, VACCINE KEY CUSTOMER LEADER-C - Last Filed: 11/17/20 12:35> Status: Acute <Roosevelt Aguilar, VACCINE KEY CUSTOMER LEADER-C - Last Filed: 11/17/20 12:35> Assessment and Plan: * Stable * Continue Amlodipine and Losartan, * monitor VS and make adjustments to medications as needed. 11/17/2020 No adjustments made to medications at this time. <Roosevelt Aguilar VACCINE KEY CUSTOMER LEADER-C - Last Filed: 11/17/20 12:35> DS: Summary Hospital Course Hospital Course:
--- NOTE | 2020-11-17 08:16 | PM.DS ---
DS: Admitting Diagnosis Admitting Diagnosis Admitting Diagnosis: generalized weakness, AMS, Parkinson <Roosevelt BerhaneRoberto Aguilar APN-C - Last Filed: 11/17/20 12:35> DS: Discharge Diagnosis Discharge Diagnosis (1) Weakness generalized: Code(s): R53.1 - Weakness <Roosevelt LastRoberto Aguilar APN-C - Last Filed: 11/17/20 12:35> Status: Acute <Roosevelt LastRoberto Aguilar APN-C - Last Filed: 11/17/20 12:35> Assessment and Plan: ? Exhibit tolerance during physical activity as evidenced by a normal fluctuation of vital signs during physical activity. ? Patient will be ability to perform required activities of daily living. ? Provide appropriate nutrition for healing and strength. ? Use appropriate to prevent falls. ? Continue physical therapy/occupational therapy. 11/17/2020 Pt has been working with PT/OT, he will be DC'ed back home per the 's request with Lalo <Roosevelt Aguilar APN-C - Last Filed: 11/17/20 12:35> (2) Urinary incontinence: Code(s): R32 - Unspecified urinary incontinence <Roosevelt Aguilar APN-C - Last Filed: 11/17/20 12:35> Status: Acute <Roosevelt BerhaneRoberto Aguilar APN-C - Last Filed: 11/17/20 12:35> Assessment and Plan: Pt will have ability to contact staff in the event he realizes he needs to use the restroom, Continue use of briefs 11/17/2020 Continue to use briefs <Roosevelt Aguilar APN-C - Last Filed: 11/17/20 12:35> (3) DM2 (diabetes mellitus, type 2): Code(s): E11.9 - Type 2 diabetes mellitus without complications <Roosevelt Aguilar APN-C - Last Filed: 11/17/20 12:35> Status: Acute <Roosevelt Aguilar APN-C - Last Filed: 11/17/20 12:35> Assessment and Plan: Blood sugars less than 300 Continue home medication glucose monitoring, consistent carb diet, hypoglycemic protocol 11/17/2020 DC with current home regimen <Roosevelt Aguilar APN-C - Last Filed: 11/17/20 12:35> (4) Parkinsons disease: Code(s): G20 - Parkinson's disease <Roosevelt Aguilar CONE FORMER-C - Last Filed: 11/17/20 12:35> Status: Acute <Roosevelt Aguilar CONE FORMER-C - Last Filed: 11/17/20 12:35> Assessment and Plan: Continue Parkinson medications, monitor Pt, Pt working with PT/OT 11/17/2020 Parkinson medication was decreased d/t side effects, will DC Pt on new regimen <Roosevelt Aguilar CONE FORMER-C - Last Filed: 11/17/20 12:35> (5) Neuropathy: Code(s): G62.9 - Polyneuropathy, unspecified <Roosevelt Aguilar CONE FORMER-C - Last Filed: 11/17/20 12:35> Status: Acute <Roosevelt Aguilar CONE FORMER-C - Last Filed: 11/17/20 12:35> Assessment and Plan: Continue gabapentin <EUFEMIA MillerN-C - Last Filed: 11/17/20 12:35> (6) Hyperlipidemia: Code(s): E78.5 - Hyperlipidemia, unspecified <Roosevelt Aguilar CONE FORMER-C - Last Filed: 11/17/20 12:35> Status: Acute <Roosevelt Aguilar CONE FORMER-C - Last Filed: 11/17/20 12:35> Assessment and Plan: Continue Atorvastatin, ASA <Roosevelt Aguilar CONE FORMER-C - Last Filed: 11/17/20 12:35> (7) Hypertension: Code(s): I10 - Essential (primary) hypertension <Roosevelt Aguilar CONE FORMER-C - Last Filed: 11/17/20 12:35> Status: Acute <Roosevelt Aguilar CONE FORMER-C - Last Filed: 11/17/20 12:35> Assessment and Plan: Stable Continue Amlodipine and Losartan, monitor VS and make adjustments to medications as needed. 11/17/2020 No adjustments made to medications at this time. <Roosevelt Aguilar CONE FORMER-C - Last Filed: 11/17/20 12:35> DS: Summary Hospital Course Hospital Course: pt will benefit with HH PT/OT, as for his Parkinsons his medications were adjusted to a lower dosing per day as his previous regimen was causing side effects. <ENMANUEL Miller - Last Filed: 11/17/20 12:35> Time Spent with Patient Time attestation: Total time spent providing and/or coordinating discharge services: < 30 minutes <ENMANUEL Miller - Last Fi
[2020-11-17] MEDS: polyethylene glycoL 3350 17 GM POWD.PACK PO (09:31)
[2020-11-17] MEDS: INSULIN HUMAN ISOPHAN/REGULAR 70/30 (*BKC) 100 UNITS/ML 40 UNITS SUB-Q (09:31)
[2020-11-17] MEDS: LOSARTAN POTASSIUM 50 MG TABLET PO (09:34)
[2020-11-17] MEDS: SIMETHICONE 80 MG TAB.CHEW PO ×2 (09:34→12:18)
[2020-11-17] MEDS: SERTRALINE HCL 50 MG TABLET 100 MG PO (09:34)
[2020-11-17] MEDS: DOCUSATE SODIUM 100 MG CAPSULE PO ×2 (09:34→17:37)
[2020-11-17] MEDS: VITAMIN B COMPLEX CAPSULE 1 CAP PO (09:34)
[2020-11-17] MEDS: metFORMIN HCL 500 MG TABLET 1000 MG PO ×2 (09:34→17:36)
[2020-11-17] MEDS: ASPIRIN 81 MG ENTERIC TABLET PO (09:34)
[2020-11-17] MEDS: ENTACAPONE 200 MG TABLET PO (09:35)
[2020-11-17] MEDS: CARBIDOPA/LEVODOPA 25/100 MG TABLET 2 TABLET PO ×3 (09:35→17:36)
[2020-11-17] MEDS: amLODIPine BESYLATE 5 MG TABLET 10 MG PO (09:35)
[2020-11-17] MEDS: GABAPENTIN 100 MG CAPSULE PO ×3 (09:35→17:36)
[2020-11-17 11:19] LABS: Glucose Point of Care 248 (65-105)
--- NOTE | 2020-11-17 17:05 | PC.NURSE ---
PT CONTINUES TO WAIT FOR FOR SALES REPRESENTATIVE.
--- NOTE | 2020-11-17 17:08 | PC.NURSE ---
REQUESTED DIETARY PREPARE DINNER TRAY PATIENT IS STILL AT FACILITY. ARRANGED EQUIPMENT PLANNER FOR 4:30pm, PT CONTINUES TO WAIT.
[2020-11-17 17:18] LABS: Glucose Point of Care 157 (65-105)
--- NOTE | 2020-11-17 17:30 | PC.NURSE ---
SPOKE TO PATIENT , EMPERATRIZ, STATES SHE WILL BE HERE SOON, WAS WAITING FOR HER SON TO GET HOME TO ASSIST WITH TRANSPORTING PATIENT. REQUESTING THAT STAFF ADMINISTER 1700 MEDICATIONS. PT UPDATED ON 'S STATUS FOR CLINICAL DOCUMENT IMPROVEMENT EDUCATOR.
[2020-11-17] MEDS: SERTRALINE HCL 50 MG TABLET PO (17:38)
--- NOTE | 2020-11-21 13:17 | PC.NURSE ---
Unable to contact for discharge call back.
[2020-11-22 13:28] LABS: Glucose Point of Care 208 (65-105)
== END 2020-11-17 18:00 | disposition home health service (06) | DRG 57 ==
PROVIDERS: Emergency Medicine; Nurse Practitioner; Nurse Practitioner Family; Admitting Provider Emergency Medicine; PCP Family Medicine; Visit Provider Emergency Medicine
DX: G20 Parkinson's disease (principal); R53.1 Weakness; E78.5 Hyperlipidemia, unspecified; I10 Essential (primary) hypertension; E11.40 Type 2 diabetes mellitus with diabetic neuropathy, unspecified; M19.011 Primary osteoarthritis, right shoulder; R41.82 Altered mental status, unspecified; Z79.4 Long term (current) use of insulin
CPT/HCPCS: 36415; 80048; 80053; 81001; 82947; 82948; 85027; 97110; 97116; 97162; 97165; 97530; 97535; A9270; J1815; J2060

== ENCOUNTER 2020-11-28 09:06 | Outpatient (RCR) | payer MEDICARE, SELFPAY ==
--- NOTE | 2020-11-28 11:03 | PTOPEVAL ---
Thank you for referring Marcos Webb to [facility].? The patient is scheduled to be seen for therapy? __2__x/week for 12 visits. Please review, sign, date and return this plan of care ALEIDA. I agree with and certify that the following plan of care is medically necessary. Referring Physician Date Admitting Provider: Attending Provider: Miguel Angel Scott DO Referring Provider: *PT Outpatient Evaluation Start: 11/28/20 09:13 Freq: Status: Active Protocol: Document 11/28/20 09:13 KIMBERLEY (Rec: 11/28/20 10:10 [email or web address] [id number]) Therapy Assessment Status Assessment Status Assessment Status Evaluation Outpatient Past Medical History Neurological History Hx Parkinson's Disease Yes Hx Other Neurological Disorders Yes: BRAIN STIMULATION DEVICE Cardiovascular History Hx Coronary Artery Disease Yes Hx Hypercholesterolemia Yes Hx Hypertension Yes Gastrointestinal History Hx Hernia Yes Genitourinary History Hx Urinary Tract Infection Yes: INCONTINENCE Musculoskeletal History Hx Crutches or Walker Use Yes Query Text:If Yes, Enter Crutches, Walker, or Both in the Comment Endocrine History Hx Diabetes Yes HEENT History Hx Cataracts Yes Psychosocial History Hx Depression Yes Evaluation Information Problem Diagnosis PD, frequent falls Onset 11/20/20 Subjective Information Pt. reports that he returned Query Text:As Reported By Patient/ home 2 weeks after being [facility] for 1-2 weeks. Pt. is presents and states that the pt. has slipped off the bed a couple times at home. She reports she is still assisting him with transfers and pt. is not walking. He reports that he would like to transfer better and would like to be able to walk with his walker. Prior Level of Function Comments Additional Prior Level of Function Pt. 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 She assist with all ADL's including dressing and bathing. Pt. no longer drives. He rarely gets into the community due to his advanced PD. Pain Assessment Timing of Pain Assessment Timing of Pain Assessment Pre-Treatment Pain Scale Pain Scale Used Numeric (1 - 10) Self Report Pain Assessment L
== END 2020-12-21 13:55 | disposition home or self-care (01) ==
LOC: CHSPT 09:06
PROVIDERS: PCP Family Medicine; Visit Provider Family Medicine
DX: G20 Parkinson's disease (principal); R53.1 Weakness; R29.6 Repeated falls
CPT/HCPCS: 97110; 97116; 97162; 97530

== ENCOUNTER 2021-01-19 16:48 | Emergency (ER) | payer MEDICARE, SELFPAY ==
--- NOTE | ~2021-01-19 | CT_ITS ---
EXAMINATION: CT cervical spine wo con DATE: 01/19/2021 19:41 INDICATION: Fall. Neck pain. TECHNIQUE: Computed tomography (CT) of the cervical spine was performed without intravenous contrast. Automated exposure control and iterative reconstruction technique were employed. Exam dose: 681.00 mGy-cm total exam DLP. COMPARISON: None FINDINGS: C1 and C2 are normally aligned and the odontoid process is intact. There is degenerative ch jono at the articulation of the anterior arch of C1 and odontoid process of C2. There is There is bridging osteophyte at C2-3 posteriorly. Moderate degenerative disease noted throughout the cervical spine. No fracture or more dislocation or locked facet is evident. There is degenerative change at the apophyseal and uncovertebral joints. . IMPRESSION: Cervical spondylosis; no fracture or dislocation Reviewed, dictated and finalized at [facility]. Reviewed, dictated and finalized at location [facility].
--- NOTE | ~2021-01-19 | XR_ITS ---
XR chest 2V DATE: 01/19/2021 19:50 INDICATION: Dizziness TECHNIQUE: AP and lateral views COMPARISON: 01/03/2019 AP chest FINDINGS: Battery pack overlies right chest with leads extending cephalad into the right cervical are a on the margin of the radiograph. Borderline heart size. Mild aortic calcification and unfolding. Mild infiltrate and/or atelectasis in the left mid and lower lung field. No pleural effusion or pneumothorax. Diffuse idiopathic skeletal hyperostosis of the thoracic spine. IMPRESSION: Mild infiltrate and/or atelectasis in the left mid and lower lung zones Reviewed, dictated and finalized at location [facility]. IMPRESSION: Mild infiltrate and/or atelectasis in the left mid and lower lung z ones
--- NOTE | ~2021-01-19 | CT_ITS ---
EXAMINATION: CT brain wo con DATE: 01/19/2021 19:41 INDICATION: Dizziness. TECHNIQUE: Computed tomography (CT) of the head was performed without intravenous contrast. The mA wa s adjusted according to patient size. Iterative reconstruction technique was employed. Exam dose: 68 1.00 mGy-cm total exam DLP. COMPARISON: 01/03/2019 CT brain FINDINGS: Right thalamic neurostimulator device again noted. Prominent left vertebral artery and bilateral carotid siphon and supraclinoid internal carotid artery calcification. There is nonspecific diminished attenuation of the cerebral white matter, likely due to chronic small vessel ischemic changes. No intracranial mass lesion or hemorrhage or cerebrovascular accident. No midline shift or mass effec t. No subdural or epidural hematoma. No fracture or bone destruction of the cranial vault. Minimal mucoperiosteal thickening of the maxillary sinuses small fluid level in left maxillary sinus. IMPRESSION: Right thalamic neurostimulator lead Cerebral atherosclerosis and chronic small vessel ischemic changes of cerebral white matter No acute intracranial finding Reviewed, dictated and finalized at [facility]. Reviewed, dictated and finalized at location [facility].
--- NOTE | ~2021-01-19 | XR_ITS ---
XR hip RT 2V w AP pelvis DATE: 01/19/2021 17:31 INDICATION: Frequent falls. Right hip pain TECHNIQUE: AP pelvis. AP and lateral views of right hip COMPARISON: 06/22/2018 right hip FINDINGS: Prominent degenerative disease at L4-5 and L5-S1, moderate degenerative disc disease at L3- 4. No recent fracture or dislocation of the right hip. Bipolar hip prosthesis of the right hip. Severe osteoarthritic change at the left hip. The pubic symphysis and sacroiliac joints are intact. No pelvic fracture or bone destruction. There is osteopenia. Fecal material in the rectum and sigmoid colon. IMPRESSION: Right bipolar hip prosthesis No fracture or dislocation of right hip Severe osteoarthritis of left hip Multilevel degenerative disc disease of lumbar and lumbosacral spine Reviewed, dictated and finalized at location [facility].
--- NOTE | ~2021-01-19 | CT_ITS ---
CT hip RT wo con DATE: 01/19/2021 19:41 INDICATION: Fall. Right hip injury 2 days ago. Right hip pain. TECHNIQUE: Axial CT images of the right hip; sagittal and coronal reconstructions. COMPARISON: None FINDINGS: Right bipolar hip prosthesis. No recent fracture or dislocation of the right hip. Prominent amount of fecal material in the rectum. IMPRESSION: Bipolar right hip prosthesis; no right hip fracture or dislocation Reviewed, dictated and finalized at [facility]. Reviewed, dictated and finalized at location [facility].
[2021-01-19 17:04] VITALS: BP 148/67; PULSE 75; RESP 18; TEMP 36.6; O2SAT 96
[2021-01-19 19:01] VITALS: BP 164/67; PULSE 60; RESP 12; O2SAT 98
--- NOTE | 2021-01-19 19:17 | ECG_ITS ---
Measurements Intervals [place] Rate: 66 P: 92 ME: 158 QRS: 172 QRSD: 103 T: 21 QT: 401 QTc: 421 Interpretive Statements SINUS RHYTHM DELAYED PRECORDIAL R/S TRANSITION BORDERLINE T WAVE ABNORMALITY- INFERIOR LEADS BASELINE ARTIFACT- I, II, III, AVR, AVL, AVF, V1-V6 BORDERLINE ECG Electronically Signed On 01-19-2021 20:12:29 CDT by Howard Vera D.O.
[2021-01-19 20:13] LABS: Basophils Absolute Auto 0.1 K/mm3 (0.0-0.1); Basophils Percent Auto 0.7 % (0.2-1.2); Eosinophils Absolute Auto 0.2 K/mm3 (0-0.3); Eosinophils Percent Auto 2.4 % (0-4.4); Hematocrit 34.2 % (42.0-52.0); Hemoglobin 11.1 g/dL (14.0-18.0); Immature Granulocyte Absolute 0.02 K/mm3 (0.00-0.031); Immature Granulocyte Percent A 0.2 % (0-0.5); Lymphocytes Absolute Auto 2.28 K/mm3 (0.9-3.2); Lymphocytes Percent Auto 25.6 % (18.3-44.2); Mean Corpuscular HGB Conc 32.5 g/dl (32-36); Mean Corpuscular Hemoglobin 26.7 pg (26-34); Mean Corpuscular Volume 82.4 fl (80-100); Mean Platelet Volume 10.2 fl (7.4-10.4); Monocytes Absolute Auto 0.9 K/mm3 (0.1-0.6); Monocytes Percent Auto 9.8 % (2.6-8.5); Neutrophils Absolute Auto 5.5 K/mm3 (1.3-6.7); Neutrophils Percent Auto 61.3 % (45.5-73.1); Platelet Count Result 237 k/mm3 (150-375); Red Blood Count 4.15 M/mm3 (4.6-6.20); Red Cell Distribution Width 14.2 % (11.5-14.5); White Blood Count 8.9 K/mm3 (4.5-10.0)
--- NOTE | 2021-01-19 20:20 | ED.LOWEXIN ---
HPI - Extremity Injury (Lower) General Chief Complaint: Extremity Injury, Lower Stated Complaint: falls Time Seen by Provider: 01/19/21 18:36 Source: patient Mode of arrival: wheelchair Limitations: no limitations History of Present Illness HPI Narrative: This is a 65 year old male that presents to the ER for a fall two days ago with right hip pain. Reports he has been having dizzy spells for the last couple of months. Reports he experiences room-spinning dizziness. This lasts only seconds. It causes him to lose his balance. He was getting out of bed 2 days ago and had a dizzy spell causing him to have a ground level fall. He did hit his head. Denies loss of consciousness. Reports since the fall he has had right hip pain. Denies fever, chest pain, shortness of breath, vomiting, or numbness. Related Data Home Medications Medication Instructions Recorded Confirmed aspirin 81 mg tablet,delayed 81 mg PO DAILY 08/31/19 11/03/20 release docusate sodium 100 mg tablet 100 mg PO BID 08/31/19 11/03/20 insulin human U-100 NPH-regulr 40 unit SUBCUT QAM ml 08/31/19 11/03/20 70-30 mix 100 unit/mL subcutaneous susp polyethylene glycol 3350 17 17 gm PO DAILY 08/31/19 11/03/20 gram/dose oral powder sertraline 100 mg tablet 100 mg PO .1 QAM, 1/2 QPM tablet 08/31/19 11/03/20 amlodipine 10 mg PO DAILY 09/24/20 11/03/20 atorvastatin 40 mg PO DAILY 09/24/20 11/03/20 losartan 50 mg PO DAILY 09/24/20 11/03/20 metformin 1,000 mg PO BID 09/24/20 11/03/20 Novolin N NPH U-100 Insulin 25 unit SUBCUT HS 10/31/20 11/03/20 Ozempic 0.5 mg SUBCUT WEEKLY 10/31/20 11/03/20 Vision 1 tablet PO DAILY 10/31/20 11/03/20 acetaminophen 500 mg PO Q6H PRN 10/31/20 11/03/20 clonazepam 0.5 mg PO HS 10/31/20 11/03/20 vitamin B complex [B 1 tablet PO DAILY 10/31/20 11/03/20 Complex-Vitamin B12] Allergies Allergy/AdvReac Type Severity Reaction Status Date / Time Penicillins Allergy Intermediate Unknown Verified 01/19/21 17:08 acetaminophen AdvReac Severe ams/somnole Verified 11/23/20 08:03 nce hydrocodone AdvReac Severe ams/somnole Verified 01/19/21 17:08 nce diazepam AdvReac Intermediate somnolence/ Verified 01/19/21 17:08 ams Review of Systems Review of Systems: Narrative: CONSTITUTIONAL: Denies fever CARDIOVASCULAR: Denies chest pain, or edema. RESPIRATORY: Denies dyspnea. GASTROINTESTINAL: Denies vomiting GENITOURINARY: Denies dysuria MUSCULOSKELETAL: Reports joint pain, and myalgia. NEUROLOGIC: Denies headache, numbness, or weakness. All systems reviewed & are unremarkable except as noted in HPI and below PMFSH Past Medical History Medical History Altered mental status DM2 (diabetes mellitus, type 2) Hyperlipidemia Hypertension Left ankle sprain Neuropathy Parkinsons disease Primary osteoarthritis of right shoulder Urinary incontinence Surgical History Surgical History History of carpal tunnel surgery Left Side 2014 Right Side 2015 Family History Family History Other Diabetes mellitus Family history of arthritis Family history of cardiovascular disease Family history of malignant neoplasm Hypertension Social History Social History Smoking status: Never smoker Alcohol intake: never Substance use: never Spiritual care concerns: Yes (Accounts 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 HEAD: Normocephalic, atraumatic. EYES: EOMI. ENT: Nares clear, no rhinorrhea or epistaxis. Mucous membranes moist. Oropharynx without tonsillar hypertrophy exudate or other lesions. Bilateral TMs pearly ellison non-bulging NECK: Supple. No adenopathy or masses. No carotid bruits or JVD CHEST: Clear to auscultation. No respiratory distress. No whe
[2021-01-19 20:27] LABS: Alanine Aminotransferase 8 U/L (4-50); Albumin Level 4.2 g/dL (3.5-5.1); Alkaline Phosphatase 99 U/L (38-126); Anion Gap 9 mmol/L (8-16); Aspartate Amino Transferase 25 U/L (17-59); Bilirubin,Total 0.6 mg/dL (0.2-1.3); Blood Urea Nitrogen 25 mg/dL (9-20); Calcium 9.4 mg/dL (8.4-10.2); Carbon Dioxide 24 mmol/L (22-30); Chloride 105 mmol/L (98-107); Estimated CRCL calculation 101 ml/min; Estimated Glomerular Filt Rate > 60; Glucose 281 mg/dL (75-110); Potassium 4.4 mmol/L (3.4-5.0); Sodium 138 mmol/L (137-145)
[2021-01-19 20:49] LABS: Add Urine Microscopic? YES; Appearance Urine Clear (Clear); Bilirubin Urine Negative (Negative); Blood Urine Negative (Negative); Color Urine Yellow (Yellow); Glucose Urine UA 3+ mg/dL (Negative); Ketones Urine Trace mg/dL (Negative); Leukocyte Esterase Ur Negative LEU/UL (Negative); Mucus Urine Rare /lpf; Nitrate Urine Negative (Negative); Protein Urine 2+ mg/dL (Negative); Specific Grav Ur 1.023 (1.001-1.035); Squamous Epithelial Cell Urine Rare /hpf (Few); Urobilinogen Urine Negative mg/dL (<2.0); WBC Urine 0-3 /hpf
[2021-01-19] MEDS: ACETAMINOPHEN 500 MG TABLET 1000 MG PO (21:29)
[2021-01-19 21:30] VITALS: BP 151/68; PULSE 62; RESP 16; TEMP 36.7; O2SAT 98
== END 2021-01-19 21:30 | disposition home or self-care (01) ==
PROVIDERS: Physician Assistant; Emergency Provider Emergency Medicine; PCP Family Medicine
DX: M25.551 Pain in right hip (principal); R42 Dizziness and giddiness; E78.5 Hyperlipidemia, unspecified; I10 Essential (primary) hypertension; E11.40 Type 2 diabetes mellitus with diabetic neuropathy, unspecified; G20 Parkinson's disease; M19.011 Primary osteoarthritis, right shoulder; M16.12 Unilateral primary osteoarthritis, left hip; I67.2 Cerebral atherosclerosis; M51.36 Other intervertebral disc degeneration, lumbar region; M51.37 Other intervertebral disc degeneration, lumbosacral region; M47.812 Spondylosis without myelopathy or radiculopathy, cervical region; Z96.641 Presence of right artificial hip joint; Z79.4 Long term (current) use of insulin; Z79.82 Long term (current) use of aspirin; R94.31 Abnormal electrocardiogram [ECG] [EKG]; R91.8 Other nonspecific abnormal finding of lung field; W19.XXXA Unspecified fall, initial encounter
CPT/HCPCS: 36415; 70450; 71046; 72125; 73502; 73700; 80053; 81001; 85025; 93005; 99284; A9270

== ENCOUNTER 2021-01-30 14:15 | Outpatient (NON) | payer MEDICARE, SELFPAY ==
[2021-01-30 14:49] LABS: Hemoglobin A1C 10.3 % (<5.7)
== END 2021-01-30 14:16 | disposition home or self-care (01) ==
LOC: CHSHH 14:19
PROVIDERS: Visit Provider Family Medicine
DX: G20 Parkinson's disease (principal); E11.40 Type 2 diabetes mellitus with diabetic neuropathy, unspecified; I10 Essential (primary) hypertension; M19.011 Primary osteoarthritis, right shoulder
CPT/HCPCS: 36415; 83036

== ENCOUNTER 2021-04-18 12:37 | Outpatient (NON) | payer MEDICARE, SELFPAY | END 2021-04-18 12:38 | disposition home or self-care (01) | LOC: CHSLAB 12:38 | PROVIDERS: Visit Provider Family Medicine | DX: R30.0 Dysuria (principal) | CPT/HCPCS: 87086; 87088 ==

== ENCOUNTER 2021-12-11 14:53 | Outpatient (CLI) | payer MEDICARE, SELFPAY ==
[2021-12-11 15:20] LABS: Hemoglobin A1C 9.3 % (<5.7)
== END 2021-12-11 14:54 | disposition home or self-care (01) ==
LOC: CHSLAB 14:57
PROVIDERS: PCP Family Medicine; Visit Provider Family Medicine
DX: E11.9 Type 2 diabetes mellitus without complications (principal)
CPT/HCPCS: 36415; 83036

== ENCOUNTER 2022-05-13 12:20 | Emergency (ER) | payer MEDICARE, SELFPAY ==
--- NOTE | 2022-05-13 12:34 | ED.EAR ---
HPI - Ear Problem General Chief complaint: Ear Stated complaint: left ear pain Time Seen by Provider: 05/13/22 12:34 Source: patient Mode of arrival: wheelchair History of Present Illness HPI Narrative: 66-year-old male with a history of hypertension, diabetes mellitus, dyslipidemia, parkinsonism status post right DBS, arthritis, recurrent falls, urinary incontinence with a recurrent ear wax impaction presents to the ER with -- left ear pain with left ear drainage which is yellow. Decreased hearing from the left ear -- throat pain more on the left side. No fever or chills. MD Complaint: ear pain, ear discharge and decreased hearing Location: left ear Duration: constant Relieving factors: nothing Exacerbating factors: nothing Discharge from ear: Reports yes - purulent Associated symptoms ear: decreased hearing Treatment prior to arrival: none Related Data Home Medications Medication Instructions Recorded Confirmed aspirin 81 mg tablet,delayed 81 mg PO DAILY 08/31/19 03/26/22 release (Adult Low Dose Aspirin) docusate sodium 100 mg tablet 100 mg PO BID 08/31/19 03/26/22 polyethylene glycol 3350 17 17 gm PO DAILY 08/31/19 03/26/22 gram/dose oral powder (Miralax) acetaminophen 500 mg tablet 500 mg PO Q6H PRN Pain 10/31/20 03/26/22 vitamin A-vitamin C-vit E-min 1 tablet PO DAILY 10/31/20 03/26/22 tablet (Vision tablet) vitamin B complex (B 1 tablet PO DAILY 10/31/20 03/26/22 Complex-Vitamin B12 tablet) carbidopa 25 mg-levodopa 100 mg 2 tablet PO .Q3H WA 08/28/21 03/26/22 tablet (Sinemet) insulin NPH isoph U-100 human 100 31 unit subcut HS 04/16/22 unit/mL subcutaneous suspension (Novolin N NPH U-100 Insulin isophane) insulin human U-100 NPH-regulr 45 unit subcut QAM 04/16/22 70-30 mix 100 unit/mL subcutaneous susp (Novolin 70/30 U-100 Insulin) melatonin 10 mg tablet 10 mg PO QHS 04/16/22 quetiapine 25 mg tablet (Seroquel) 25 mg PO QHS 04/16/22 Allergies Allergy/AdvReac Type Severity Reaction Status Date / Time Penicillins Allergy Intermediate Unknown Verified 05/13/22 15:35 acetaminophen AdvReac Severe ams/somnole Verified 05/13/22 15:35 nce hydrocodone AdvReac Severe ams/somnole Verified 05/13/22 15:35 nce diazepam AdvReac Intermediate somnolence/ Verified 05/13/22 15:35 ams Review of Systems Review of Systems: All systems reviewed & are unremarkable except as noted in HPI and below Constitutional: Constitutional: Reports as per HPI and Reports no additional constitutional complaints Eyes: Eyes: Reports as per HPI and Reports no additional eye complaints ENT: Reports system reviewed and no additional complaints, except as documented and Reports as per HPI Comments: bilateral ear wax which is more on the left side. Decreased hearing from the left side. Pain in his left side of the throat and left ear. Cardiovascular: Cardiovascular: Reports as per HPI and Reports no additional cardiovascular complaints Respiratory: Respiratory: Reports as per HPI and Reports no additional respiratory complaints Gastrointestinal: Gastrointestinal: Reports as per HPI and Reports no additional gastrointestinal complaints PMFSH Past Medical History Medical History Altered mental status DM2 (diabetes mellitus, type 2) Hyperlipidemia Hypertension Left ankle sprain Neuropathy Parkinsons disease Primary osteoarthritis of right shoulder Urinary incontinence Surgical History Surgical History History of carpal tunnel surgery Left Side 2014 Right Side 2014 Family History Family History Other Diabetes mellitus Family history of arthritis Family history of cardiovascular disease Family history of malignant neoplasm Hypertension Social History Social History (Reviewed 04/16/22 @ 07:34 by Sarah Ramos
[2022-05-13 12:55] VITALS: BP 162/87; PULSE 76; RESP 20; TEMP 36.6; O2SAT 100
[2022-05-13 14:33] LABS: Basophils Absolute Auto 0.07 K/mm3 (0.00-0.10); Basophils Percent Auto 0.7 % (0.0-1.0); Eosinophils Absolute Auto 0.23 K/mm3 (0.02-0.50); Eosinophils Percent Auto 2.4 % (1.0-6.0); Hematocrit 36.3 % (37.0-46.0); Hemoglobin 11.6 g/dL (12.4-15.3); Immature Granulocyte Absolute 0.03 K/mm3 (0.00-0.00); Immature Granulocyte Percent A 0.3 % (0.0-0.0); Lymphocytes Absolute Auto 2.02 K/mm3 (1.10-4.50); Lymphocytes Percent Auto 21.2 % (18.0-42.0); Mean Corpuscular Hemoglobin 26.9 pg (27.0-31.0); Mean Corpuscular Volume 84.2 fL (78.0-102.0); Mean Platelet Volume 9.8 fl (8.7-11.0); Monocytes Percent Auto 7.3 % (2.0-11.0); Neutrophils Absolute Auto 6.5 K/mm3 (1.7-7.2); Neutrophils Percent Auto 68.1 % (50.0-70.0); Platelet Count Result 269 K/mm3 (150-420); Red Blood Count 4.31 M/mm3 (4.70-6.10); Red Cell Distribution Width 13.2 % (11.6-14.4); White Blood Count 9.5 K/mm3 (4.8-10.8)
[2022-05-13 14:34] LABS: Appearance Urine Clear (Clear); Bilirubin Urine Negative (Negative); Color Urine Yellow (Yellow); Glucose Urine UA Negative (Negative); Ketones Urine Negative (Negative); Leukocyte Esterase Ur Negative (Negative); Nitrate Urine Negative (Negative); Protein Urine 3+ (Negative); Specific Grav Ur 1.025 (1.010-1.020); Urobilinogen Urine 0.2 mg/dL (0.2-1.0)
[2022-05-13 14:37] LABS: Add Urine Microscopic? YES; Blood Urine Trace-lysed (Negative); RBC Urine 0-2 /hpf (0-2); WBC Urine None seen /hpf (0-3)
[2022-05-13 14:38] LABS: Bacteria Urine Trace /hpf; Squamous Epithelial Cell Urine Rare /hpf (Few)
[2022-05-13 14:55] LABS: Alanine Aminotransferase 14 U/L (16-63); Albumin Level 3.8 g/dL (3.4-5.0); Alkaline Phosphatase 96 U/L (46-116); Anion Gap 8 mmol/L (8-16); Aspartate Amino Transferase 15 U/L (15-37); Bilirubin,Total 0.6 mg/dL (0.00-1.00); Blood Urea Nitrogen 13 mg/dL (7-18); Calcium 9.2 mg/dL (8.5-10.1); Carbon Dioxide 29 mmol/L (21-32); Chloride 103 mmol/L (98-108); Estimated CRCL calculation 104 ml/min; Estimated Glomerular Filt Rate > 60; Glucose 155 mg/dL (70-99); Osmolality Calculated 293 mOsm/kg (285-295); Potassium 4.3 mmol/L (3.5-5.1); Sodium 140 mmol/L (136-145); Total Protein 7.5 g/dL (6.4-8.2)
[2022-05-13 14:58] LABS: Prothrombin Time 11.4 Seconds (9.50-12.10)
[2022-05-13 15:20] VITALS: BP 188/93; PULSE 81; RESP 16; TEMP 36.8; O2SAT 96
== END 2022-05-13 15:34 | disposition home or self-care (01) ==
LOC: CHSED 13:01
PROVIDERS: Emergency Provider Internal Medicine Critical Care Medicine; PCP Family Medicine
DX: H61.23 Impacted cerumen, bilateral (principal); J02.9 Acute pharyngitis, unspecified; E11.65 Type 2 diabetes mellitus with hyperglycemia; E78.5 Hyperlipidemia, unspecified; I10 Essential (primary) hypertension; G20 Parkinson's disease
CPT/HCPCS: 36415; 69209; 80053; 81001; 84443; 85025; 85610; 99283

== ENCOUNTER 2022-05-27 14:49 | Observation (INO) | payer MEDICARE, SELFPAY ==
[2022-05-27] VITALS (12 sets, daily range): BP systolic 171–192; BP diastolic 83–96; PULSE 83–97; RESP 16–27; TEMP 36.4–37.3; O2SAT 96–100
--- NOTE | ~2022-05-27 | CT_ITS ---
CT soft tissue neck w con DATE: 05/27/2022 18:45 INDICATION: Difficulty swallowing TECHNIQUE: Axial slices through the neck were performed with 75 CC Omnipaque 350 intravenous contrast material. Exam dose: 643.13 mGy-cm total exam DLP. COMPARISON: 01/19/2021 CT cervical spine FINDINGS: No cervical mass lesion or lymphadenopathy is detected. No abscess or thickening of the epi glottis. Size and enhancement of the thyroid gland no parotid or submandibular gland mass. No superior mass lesion or lymphadenopathy. Normal caliber and some atherosclerotic calcification of the included thoracic aorta. Right-sided battery pack with lead extending through the right cervical subcutaneous tissues into the head. Upper lung zones are clear of infiltrate or consolidation. IMPRESSION: No cervical mass lesion, abscess or lymphadenopathy Effusion throughout the left mastoid air cells are again noted Reviewed, dictated and finalized at [facility]. Reviewed, dictated and finalized at location A.
--- NOTE | ~2022-05-27 | CT_ITS ---
EXAMINATION: CT brain wo con DATE: 05/27/2022 18:44 INDICATION: Confusion, altered mental state. Left ear discomfort. Difficulty swallowing. TECHNIQUE: Computed tomography (CT) of the head was performed without intravenous contrast. The mA wa s adjusted according to patient size. Iterative reconstruction technique was employed. Exam dose: 83 2.33 mGy-cm total exam DLP. COMPARISON: 01/19/2021 CT brain FINDINGS: Prominent cerebral atherosclerotic calcification. Is nonspecific diminished attenuation cer ebral white matter, likely due to chronic small vessel ischemic changes. No intracranial mass lesion or hemorrhage, midline shift or mass effect is detected. No subdural or e pidural hematoma. Right-sided thalamic neurostimulator lead is again noted. Extensive effusions of the left mastoid air cells. The right mastoid air cells appear normally develo ped and aerated. Mild soft tissue thickening of the maxillary sinuses. No fracture or bone destruction of the cranial vault. IMPRESSION: No acute intracranial finding or significant change since 01/19/2021 Reviewed, dictated and finalized at [facility] Reviewed, dictated and finalized at [facility].
--- NOTE | 2022-05-27 16:30 | PC.NURSE ---
Patient's verbalized multiple complaints. Patient complains of abdominal pain. Patient states he has been having frequent falls, confusion and ear pain for the last 6 weeks.
--- NOTE | 2022-05-27 16:44 | ED.GENADULT ---
HPI - General Adult General Chief complaint: Weakness <Shoshana Barth PA-C - Last Filed: 05/27/22 19:51> Stated complaint: weakness, frequent falls <Shoshana Barth PA-C - Last Filed: 05/27/22 19:51> Time Seen by Provider: 05/27/22 16:11 <Shoshana Barth PA-C - Last Filed: 05/27/22 19:51> History of Present Illness HPI narrative: Patient is a 66-year-old male with a history of Parkinson's here with his for evaluation of frequent falls over the past 4 weeks. History largely obtained from patient's given patient's baseline mental status. States that she has numerous complaints. She has had difficulty taking care of patient at home, they live by themselves and he states that he has had multiple falls over the past 4 weeks. Additionally notes that he has had a fullness in his neck over the last 4 weeks that has been increasing in pain, patient describes it as a globus sensation. He has also been having frequent cerumen impactions of been cleared by both his PCP and the ED. Patient states that she comes for assistance at home. <Shoshana Barth PA-C - Last Filed: 05/27/22 19:51> Related Data Home medications: Home Medications Medication Instructions Recorded Confirmed aspirin 81 mg tablet,delayed 81 mg PO DAILY 08/31/19 05/27/22 release (Adult Low Dose Aspirin) docusate sodium 100 mg tablet 100 mg PO BID 08/31/19 05/27/22 polyethylene glycol 3350 17 17 gm PO DAILY 08/31/19 05/27/22 gram/dose oral powder (Miralax) acetaminophen 500 mg tablet 500 mg PO Q6H PRN Pain 10/31/20 05/27/22 vitamin A-vitamin C-vit E-min 1 tablet PO DAILY 10/31/20 05/27/22 tablet (Vision tablet) vitamin B complex (B 1 tablet PO DAILY 10/31/20 05/27/22 Complex-Vitamin B12 tablet) carbidopa 25 mg-levodopa 100 mg 2 tablet PO .Q3H WA 08/28/21 05/27/22 tablet (Sinemet) insulin NPH isoph U-100 human 100 31 unit subcut HS 04/16/22 05/27/22 unit/mL subcutaneous suspension (Novolin N NPH U-100 Insulin isophane) insulin human U-100 NPH-regulr 45 unit subcut QA 04/16/22 05/27/22 70-30 mix 100 unit/mL subcutaneous susp (Novolin 70/30 U-100 Insulin) melatonin 10 mg tablet 10 mg PO QHS 04/16/22 05/27/22 quetiapine 25 mg tablet (Seroquel) 25 mg PO QHS 04/16/22 05/27/22 amlodipine 5 mg tablet 1 mg PO DAILY 05/27/22 05/27/22 atorvastatin 40 mg tablet 40 mg PO HS 05/27/22 05/27/22 losartan 25 mg tablet 25 mg PO DAILY 05/27/22 05/27/22 metformin 1,000 mg tablet 1,000 mg PO BID 05/27/22 05/27/22 <Shoshana Barth PA-C - Last Filed: 05/27/22 19:51> Allergies/adverse reactions: Allergies Allergy/AdvReac Type Severity Reaction Status Date / Time Penicillins Allergy Intermediate Unknown Verified 05/27/22 18:21 hydrocodone AdvReac Severe ams/somnole Verified 05/27/22 18:21 nce diazepam AdvReac Intermediate somnolence/ Verified 05/27/22 18:21 ams <Shoshana Barth PA-C - Last Filed: 05/27/22 19:51> Review of Systems Review of Systems: Gen: Reports frequent falls. Denies fevers or chills Eyes: Denies eye pain or visual change ENT: Reports left-sided neck fullness. Denies congestion Respiratory: Denies shortness of breath or cough CV: Denies chest pain or palpitations GI: Denies abdominal pain nausea, emesis or diarrhea denies burning, urgency, frequency or hematuria Musculoskeletal: Denies back pain or muscle pain Neuro: Denies numbness, tingling, weakness or focal weakness Skin: Denies rash Except as documented, all other systems reviewed and negative <Shoshana Barth PA-C - Last Filed: 05/27/22 19:51> ON LICENSE OF [facility] Past Medical History Medical History: Medical History Altered mental status DM2 (diabetes mellitus, type 2) Hyperlipidemia Hypertension Left ankle sprain Neuropathy Parkinsons disease Primary osteoarthritis of right shoulder Urinary incontinence <Shoshana Calderón
[2022-05-27 17:19] LABS: Basophils Absolute Auto 0.1 K/mm3 (0.0-0.1); Basophils Percent Auto 0.9 % (0.2-1.2); Eosinophils Absolute Auto 0.3 K/mm3 (0-0.3); Eosinophils Percent Auto 3.3 % (0-4.4); Hemoglobin 10.3 g/dL (14.0-18.0); Immature Granulocyte Absolute 0.02 K/mm3 (0.00-0.031); Immature Granulocyte Percent A 0.2 % (0-0.5); Lymphocytes Absolute Auto 1.98 K/mm3 (0.9-3.2); Lymphocytes Percent Auto 23.3 % (18.3-44.2); Mean Corpuscular HGB Conc 32.2 g/dl (32-36); Mean Corpuscular Hemoglobin 27.1 pg (26-34); Mean Corpuscular Volume 84.2 fl (80-100); Mean Platelet Volume 9.6 fl (7.4-10.4); Monocytes Absolute Auto 0.8 K/mm3 (0.1-0.6); Monocytes Percent Auto 9.4 % (2.6-8.5); Neutrophils Absolute Auto 5.3 K/mm3 (1.3-6.7); Neutrophils Percent Auto 62.9 % (45.5-73.1); Platelet Count Result 265 k/mm3 (150-375); Red Cell Distribution Width 13.5 % (11.5-14.5); White Blood Count 8.5 K/mm3 (4.5-10.0)
[2022-05-27 17:34] LABS: Alanine Aminotransferase 8 U/L (6-50); Albumin Level 4.3 g/dL (3.5-5.1); Alkaline Phosphatase 103 U/L (38-126); Anion Gap 10 mmol/L (8-16); Aspartate Amino Transferase 20 U/L (17-59); Bilirubin,Total 0.5 mg/dL (0.2-1.3); Blood Urea Nitrogen 19 mg/dL (9-20); Calcium 8.6 mg/dL (8.4-10.2); Carbon Dioxide 26 mmol/L (22-30); Chloride 102 mmol/L (98-107); Estimated CRCL calculation 112 ml/min; Estimated Glomerular Filt Rate > 60; Glucose 265 mg/dL (65-110); Potassium 4.4 mmol/L (3.4-5.0); Sodium 138 mmol/L (137-145)
--- NOTE | 2022-05-27 18:29 | PC.NURSE ---
Patient unable to lay in the bed. Patient is anxious and states he is unable to lay flat in the bed.
--- NOTE | 2022-05-27 20:58 | PM.IMHP ---
H&P: HPI History of Present Illness Date/Time: 05/27/22 20:58 Chief Complaint: Recurrent falls Narrative: This is a 66-year-old male with past medical history significant for Parkinson's disease, neurostimulator implanted, Parkinson's dementia, type diabetes mellitus insulin dependent, hypertension. patient is brought to the emergency room due to overall decline in his functioning on recurrent falls unable to provide care for him at home has become an great burden. most of the history has been obtained upon reviewing medical records as patient is a very circumstantial and unable to give any meaningful history that can contribute to history taking. Preliminary workup has been essentially nonrevealing. Patient has been admitted for further, evaluation management and treatment. a CT of the head was significant for: FINDINGS: Prominent cerebral atherosclerotic calcification. Is nonspecific diminished attenuation cerebral white matter, likely due to chronic small vessel ischemic changes. No intracranial mass lesion or hemorrhage, midline shift or mass effect is detected. No subdural or epidural hematoma. Right-sided thalamic neurostimulator lead is again noted. Extensive effusions of the left mastoid air cells. The right mastoid air cells appear normally developed and aerated. Mild soft tissue thickening of the maxillary sinuses. No fracture or bone destruction of the cranial vault. IMPRESSION:? No acute intracranial finding or significant change since 01/19/2021 Review of Systems Review of Systems: ROS unobtainable: Yes unobtainable due to medical condition ( Parkinson's dementia) [facility] Past Medical History Medical History Altered mental status DM2 (diabetes mellitus, type 2) Hyperlipidemia Hypertension Left ankle sprain Neuropathy Parkinsons disease Primary osteoarthritis of right shoulder Urinary incontinence Surgical History Surgical History History of carpal tunnel surgery Left Side 2014 Right Side 2014 Family History Family History Other Diabetes mellitus Family history of arthritis Family history of cardiovascular disease Family history of malignant neoplasm Hypertension Social History Social History Smoking status: Unknown if ever smoked Alcohol intake: unknown Substance use: unknown Spiritual care concerns: No Meds Home Medications and Allergies Home Medications Medication Instructions Recorded Confirmed Type aspirin 81 mg tablet,delayed 81 mg PO DAILY 08/31/19 05/27/22 History release (Adult Low Dose Aspirin) docusate sodium 100 mg tablet 100 mg PO BID 08/31/19 05/27/22 History polyethylene glycol 3350 17 17 gm PO DAILY 08/31/19 05/27/22 History gram/dose oral powder (Miralax) acetaminophen 500 mg tablet 500 mg PO Q6H PRN Pain 10/31/20 05/27/22 History vitamin A-vitamin C-vit E-min 1 tablet PO DAILY 10/31/20 05/27/22 History tablet (Vision tablet) vitamin B complex (B 1 tablet PO DAILY 10/31/20 05/27/22 History Complex-Vitamin B12 tablet) entacapone 200 mg tablet (Comtan) 200 mg PO BID #60 tabs 11/12/20 05/27/22 Rx lancets 28 gauge (FreeStyle See Rx Instructions .Route 12/18/20 05/27/22 Rx Lancets) .COMPLEX #300 ea carbidopa 25 mg-levodopa 100 mg 2 tablet PO .Q3H WA 08/28/21 05/27/22 History tablet (Sinemet) gabapentin 100 mg capsule 100 mg PO TID 90 days #270 caps 08/28/21 05/27/22 Rx sertraline 100 mg tablet 100 mg PO .1 QAM, 1/2 QPM #135 tabs 10/22/21 05/27/22 Rx insulin NPH isoph U-100 human 100 31 unit subcut HS 04/16/22 05/27/22 History unit/mL subcutaneous suspension (Novolin N NPH U-100 Insulin isophane) insulin human U-100 NPH-regulr 45 unit subcut QAM 04/16/22 05/27/22 History 70-30 mix 100 unit/mL subcutaneous
[2022-05-28] MEDS: CARBIDOPA/LEVODOPA 25/100 MG TABLET 2 TABLET PO ×6 (05:47→20:08)
[2022-05-28 06:00] VITALS: BP 175/90; PULSE 89; RESP 18; TEMP 36.9; O2SAT 94
[2022-05-28] MEDS: INSULIN HUMAN ISOPHAN/REGULAR 70/30 (*BKC) 100 UNITS/ML 45 UNITS SUB-Q (07:59)
[2022-05-28] MEDS: INSULIN ASPART (*BKC) 100 UNITS/ML SUB-Q (07:59)
[2022-05-28] MEDS: LOSARTAN POTASSIUM 50 MG TABLET PO (08:07)
[2022-05-28] MEDS: VITAMIN B COMPLEX CAPSULE 1 CAP PO (08:07)
[2022-05-28] MEDS: OPTI-GEN TAB 1 TABLET PO (08:07)
[2022-05-28] MEDS: ENTACAPONE 200 MG TABLET PO ×2 (08:07→17:05)
[2022-05-28] MEDS: ASPIRIN 81 MG ENTERIC TABLET PO (08:07)
[2022-05-28] MEDS: GABAPENTIN 100 MG CAPSULE PO ×3 (08:07→17:05)
[2022-05-28 08:08] LABS: Glucose Point of Care 259 mg/dl (65-105)
[2022-05-28] MEDS: SERTRALINE HCL 50 MG TABLET 100 MG PO (08:08)
[2022-05-28] MEDS: DOCUSATE SODIUM 100 MG CAPSULE PO (08:08)
[2022-05-28] MEDS: amLODIPine BESYLATE 5 MG TABLET 10 MG PO (08:08)
[2022-05-28 08:59] LABS: Transferrin 218 mg/dL (206-381)
--- NOTE | 2022-05-28 09:00 | P.PNIM_ITS ---
Progress Note: A&P Assessment and Plan (1) Frequent falls: Code(s): R29.6 - Repeated falls Status: Acute Assessment and Plan: * Probably related to worsening Parkinson * Neurology consulted * PT/OT ordered * Continue carbidopa levodopa * Fall precautions (2) Parkinson's disease dementia: Code(s): G20 - Parkinson's disease; F02.80 - Dementia in other diseases classified elsewhere, unspecified severity, without behavioral disturbance, psychotic disturbance, mood disturbance, and anxiety Status: Chronic Assessment and Plan: * Continue home medications * Carbidopa/Levadopa 25/100 2 tabs Q3H * Continue to trend * Head ct shows no significant change, or findings * Neurology consulted (3) Neuropathy: Code(s): G62.9 - Polyneuropathy, unspecified Status: Chronic Assessment and Plan: * continue home meds (4) Parkinsons disease: Code(s): G20 - Parkinson's disease Status: Acute Assessment and Plan: * continue home meds * Carbidopa/Levadopa 25/100 2 tabs Q3H * Continue to trend * Head ct shows no significant change, or findings * Neurology consulted (5) Hypertension: Code(s): I10 - Essential (primary) hypertension Status: Acute Assessment and Plan: * Current BP is 175/90 * Increase losartan to 50mg PO at night, and amlodipine 10mg PO daily * Continue to trend BP * Adjust therapy as indicated (6) DM2 (diabetes mellitus, type 2): Code(s): E11.9 - Type 2 diabetes mellitus without complications Status: Acute Assessment and Plan: * Current glucose is 265 * A1c is 9.3 * Continue NPH 31 units at night 45 units in the am * Hold metformin for now * Will need a 24 hour insulin roll * Adjust insulin as indicated * Accu cheks ac/hs * Trend glucose * Adjust therapy as indicated * ISS * Hypoglycemia protocol Time Spent With Patient Time with patient: Greater than 35 minutes Subjective Date/time seen: 05/28/22 09:00 Interval history: 05/28/22 0900 Patient was very restless in the room. He did not know where he was. He could tell me was was and he did state that he has been too long. He does still have a sense of humor. He does appear to be very uncomfortable. He denies having any issues including pain, chest pain, shortness a breath, nausea, vomiting, diarrhea, constipation, weakness or fatigue. He denies that he has been falling a lot however he appears to have some bumps and bruises. Currently he appears stable. Iron is low at 29 will supplement this time. 05/27/22? 20:58 ?This is a 66-year-old male with past medical history significant for Parkinson's disease, neurostimulator implanted, Parkinson's dementia, type diabetes mellitus insulin dependent, hypertension. patient is brought to the emergency room due to overall decline in his functioning on recurrent falls unable to provide care for him at home has become an great burden. most of the history has been obtained upon reviewing medical records as patient is a very circumstantial and unable to give any meaningful history that can contribute to history taking.? Preliminary workup has been essentially nonrevealing.? Review of Systems Review of Systems: All systems reviewed & ar
--- NOTE | 2022-05-28 09:00 | PM.IMPN ---
Progress Note: A&P Assessment and Plan (1) Frequent falls: Code(s): R29.6 - Repeated falls Status: Acute Assessment and Plan: Probably related to worsening Parkinson Neurology consulted PT/OT ordered Continue carbidopa levodopa Fall precautions (2) Parkinson's disease dementia: Code(s): G20 - Parkinson's disease; F02.80 - Dementia in other diseases classified elsewhere, unspecified severity, without behavioral disturbance, psychotic disturbance, mood disturbance, and anxiety Status: Chronic Assessment and Plan: Continue home medications Carbidopa/Levadopa 25/100 2 tabs Q3H Continue to trend Head ct shows no significant change, or findings Neurology consulted (3) Neuropathy: Code(s): G62.9 - Polyneuropathy, unspecified Status: Chronic Assessment and Plan: continue home meds (4) Parkinsons disease: Code(s): G20 - Parkinson's disease Status: Acute Assessment and Plan: continue home meds Carbidopa/Levadopa 25/100 2 tabs Q3H Continue to trend Head ct shows no significant change, or findings Neurology consulted (5) Hypertension: Code(s): I10 - Essential (primary) hypertension Status: Acute Assessment and Plan: Current BP is 175/90 Increase losartan to 50mg PO at night, and amlodipine 10mg PO daily Continue to trend BP Adjust therapy as indicated (6) DM2 (diabetes mellitus, type 2): Code(s): E11.9 - Type 2 diabetes mellitus without complications Status: Acute Assessment and Plan: Current glucose is 265 A1c is 9.3 Continue NPH 31 units at night 45 units in the am Hold metformin for now Will need a 24 hour insulin roll Adjust insulin as indicated Accu cheks ac/hs Trend glucose Adjust therapy as indicated ISS Hypoglycemia protocol Time Spent With Patient Time with patient: Greater than 35 minutes Subjective Date/time seen: 05/28/22 09:00 Interval history: 05/28/22 09 Patient was very restless in the room. He did not know where he was. He could tell me was was and he did state that he has been too long. He does still have a sense of humor. He does appear to be very uncomfortable. He denies having any issues including pain, chest pain, shortness a breath, nausea, vomiting, diarrhea, constipation, weakness or fatigue. He denies that he has been falling a lot however he appears to have some bumps and bruises. Currently he appears stable. Iron is low at 29 will supplement this time. 05/27/22? 20:58 ?This is a 66-year-old male with past medical history significant for Parkinson's disease, neurostimulator implanted, Parkinson's dementia, type diabetes mellitus insulin dependent, hypertension. patient is brought to the emergency room due to overall decline in his functioning on recurrent falls unable to provide care for him at home has become an great burden. most of the history has been obtained upon reviewing medical records as patient is a very circumstantial and unable to give any meaningful history that can contribute to history taking.? Preliminary workup has been essentially nonrevealing.? Review of Systems Review of Systems: All systems reviewed & are unremarkable except as noted in HPI and below ROS unobtainable: Yes unobtainable due to medical condition ( Parkinson's dementia) Exam Const: General: cooperative, healthy appearing, no acute distress, well developed, alert, awake and well nourished Nutritional Appearance: well nourished Orientation/consciousness: patient oriented x3 Limitations: no limitations HENMT: Head: normal to inspection Ears: hearing grossly normal bilaterally Face/Nose/Sinus: Normal external nose present Mouth: Yes Normal oral and palatal mucosa present, Yes lip normal and Yes tongue normal Teeth and gingiva: abn
--- NOTE | 2022-05-28 09:05 | WPDNEURCNPN ---
Assessment and Plan Assessment and plan (1) Parkinson's disease dementia: Code(s): G20 - Parkinson's disease; F02.80 - Dementia in other diseases classified elsewhere, unspecified severity, without behavioral disturbance, psychotic disturbance, mood disturbance, and anxiety Status: Acute (2) Frequent falls: Code(s): R29.6 - Repeated falls Status: Acute (3) Parkinsons disease: Code(s): G20 - Parkinson's disease Status: Acute (4) Neuropathy: Code(s): G62.9 - Polyneuropathy, unspecified Status: Acute Plan Patient is a 66 year old male with a history of Parkinson's, dementia, poorly controlled diabetes, and neuropathy presenting with worsening falls and cognitive decline. Vitamin B12, TSH, and folate levels were normal. Unable to get MRI due to DBS. Symptoms could be related to progression of Parkinson's vs worsening neuropathy (which would only explain falls). - Will need more information about how long he has had decline in his mental status. If there have been chronic cognitive issues, can start Donepezil 5mg daily - For gait issues, he will need to have his DBS interrogated by the managing Neurologist to ensure its functioning - Continue Sinemet and Entacapone at same doses Consult date: 05/28/22 Time Seen: 09:05 Reason for consult: Parkinson's disease HPI: Marcos Webb is a 66 year old male with a history of Parkinson's disease s/p DBS, dementia, poorly controlled diabetes, and hypertension who is currently admitted due to frequent falls and decline in functioning. He has been under his 's care, but due to the decline, she is no longer able to care for him. No fevers. Basic labs were obtained which were unremarkable. CT head shows R side DBS, but no other acute changes. For Parkinson's patient takes Sinemet 50-200mg q3hrs WA. He is also on entacapone 200mg BID. His last HgbA1c was 9.3. B12, TSH, and folate levels were normal. No family is at bedside today. History was obtained from chart review. Review of Systems Review of Systems: ROS unobtainable: Yes unobtainable due to mental status PMFSH Past Medical History Medical History Altered mental status DM2 (diabetes mellitus, type 2) Hyperlipidemia Hypertension Left ankle sprain Neuropathy Parkinsons disease Primary osteoarthritis of right shoulder Urinary incontinence Surgical History Surgical History History of carpal tunnel surgery Left Side 2014 Right Side 2015 Family History Family History Other Diabetes mellitus Family history of arthritis Family history of cardiovascular disease Family history of malignant neoplasm Hypertension Social History Social History Smoking status: Unknown if ever smoked Alcohol intake: unknown Substance use: unknown Spiritual care concerns: No Meds Home Medications and Allergies Home Medications Medication Instructions Recorded Confirmed Type aspirin 81 mg tablet,delayed 81 mg PO DAILY 08/31/19 05/27/22 History release (Adult Low Dose Aspirin) docusate sodium 100 mg tablet 100 mg PO BID 08/31/19 05/27/22 History polyethylene glycol 3350 17 17 gm PO DAILY 08/31/19 05/27/22 History gram/dose oral powder (Miralax) acetaminophen 500 mg tablet 500 mg PO Q6H PRN Pain 10/31/20 05/27/22 History vitamin A-vitamin C-vit E-min 1 tablet PO DAILY 10/31/20 05/27/22 History tablet (Vision tablet) vitamin B complex (B 1 tablet PO DAILY 10/31/20 05/27/22 History Complex-Vitamin B12 tablet) entacapone 200 mg tablet (Comtan) 200 mg PO BID #60 tabs 11/12/20 05/27/22 Rx lancets 28 gauge (FreeStyle See Rx Instructions .Route 12/18/20 05/27/22 Rx Lancets) .COMPLEX #300 ea carbidopa 25 mg-levodopa 100 mg 2 tablet PO .Q3H WA 08/28/21 05/27/22
[2022-05-28 09:32] LABS: Iron 29 ug/dL (49-181)
[2022-05-28 09:41] LABS: Percent Iron Saturation 10 % (20-50)
[2022-05-28 09:59] LABS: Folic Acid 12.5 ng/mL (2.76->20)
[2022-05-28 11:45] LABS: Glucose Point of Care 106 mg/dl (65-105)
[2022-05-28 11:49] VITALS: O2SAT 94
[2022-05-28 14:00] VITALS: BP 155/79; PULSE 79; RESP 20; TEMP 36.9; O2SAT 94
[2022-05-28 16:56] LABS: Glucose Point of Care 93 mg/dl (65-105)
[2022-05-28] MEDS: FERROUS SULFATE 324 MG TABLET PO (17:05)
[2022-05-28] MEDS: SERTRALINE HCL 50 MG TABLET PO (17:06)
[2022-05-28 20:00] VITALS: PULSE 79; RESP 20; O2SAT 94
[2022-05-28] MEDS: QUEtiapine FUMARATE 25 MG TABLET PO (20:08)
[2022-05-28] MEDS: MELATONIN 5 MG TABLET 10 MG PO (20:08)
[2022-05-28] MEDS: ATORVASTATIN 40 MG TABLET PO (20:08)
[2022-05-28 22:00] VITALS: BP 145/89; PULSE 72; RESP 17; TEMP 36.6; O2SAT 92
[2022-05-28 22:50] LABS: Glucose Point of Care 105 mg/dl (65-105)
--- NOTE | 2022-05-28 23:24 | PC.NURSE ---
nph held bs 105 and poor appetite informed MD Reed
[2022-05-29] MEDS: CARBIDOPA/LEVODOPA 25/100 MG TABLET 2 TABLET PO ×6 (05:32→20:08)
[2022-05-29 06:00] VITALS: BP 172/95; PULSE 77; RESP 17; TEMP 36.2; O2SAT 97
[2022-05-29 08:19] LABS: Glucose Point of Care 171 mg/dl (65-105)
[2022-05-29] MEDS: INSULIN HUMAN ISOPHAN/REGULAR 70/30 (*BKC) 100 UNITS/ML 45 UNITS SUB-Q (08:52)
[2022-05-29] MEDS: amLODIPine BESYLATE 5 MG TABLET 10 MG PO (08:58)
[2022-05-29] MEDS: SERTRALINE HCL 50 MG TABLET 100 MG PO (08:58)
[2022-05-29] MEDS: GABAPENTIN 100 MG CAPSULE PO ×3 (08:59→17:03)
[2022-05-29] MEDS: LOSARTAN POTASSIUM 50 MG TABLET PO (08:59)
[2022-05-29] MEDS: FERROUS SULFATE 324 MG TABLET PO ×2 (08:59→17:02)
[2022-05-29] MEDS: DOCUSATE SODIUM 100 MG CAPSULE PO ×2 (08:59→17:02)
[2022-05-29] MEDS: ENTACAPONE 200 MG TABLET PO ×2 (08:59→17:03)
[2022-05-29] MEDS: VITAMIN B COMPLEX CAPSULE 1 CAP PO (08:59)
[2022-05-29] MEDS: ASPIRIN 81 MG ENTERIC TABLET PO (08:59)
[2022-05-29] MEDS: OPTI-GEN TAB 1 TABLET PO (09:00)
[2022-05-29 10:03] LABS: Hemoglobin A1C 8.9 % (<5.7)
[2022-05-29 11:33] LABS: Glucose Point of Care 217 mg/dl (65-105)
[2022-05-29] MEDS: INSULIN ASPART (*BKC) 100 UNITS/ML SUB-Q (11:33)
[2022-05-29] MEDS: ACETAMINOPHEN 500 MG TABLET PO ×2 (13:11→20:10)
[2022-05-29 14:00] VITALS: BP 106/69; PULSE 69; RESP 18; TEMP 36.8; O2SAT 95
--- NOTE | 2022-05-29 16:12 | P.PNIM_ITS ---
Progress Note: A&P Assessment and Plan (1) Frequent falls: Code(s): R29.6 - Repeated falls Status: Acute Assessment and Plan: reportedly had 3 falls at home over the last several days * likely related to progression of Parkinson's disease * head CT with no acute findings * appreciate neurology consultation * fall precautions in place * will need outpatient evaluation of his deep brain stimulator * planning for SNF placement (2) Parkinson's disease dementia: Code(s): G20 - Parkinson's disease; F02.80 - Dementia in other diseases classified elsewhere, unspecified severity, without behavioral disturbance, psychotic disturbance, mood disturbance, and anxiety Status: Chronic Assessment and Plan: patient with history of Parkinson's disease, managed by Neurology * continue home Sinemet * continue entacapone * appreciate neurology consultation (3) Mastoiditis: Code(s): H70.90 - Unspecified mastoiditis, unspecified ear Status: Acute Assessment and Plan: Pt complaining of left ear pain, worsens with swallowing * Unable to visualize left internal ear due to external ear swelling * Head CT on admission demonstrates extensive effusions of the left mastoid air cells * Discussed case with ENT, Dr. Chapin. Appreciate consultation * Will begin p.o. ciprofloxacin. QTc 420 in January. Will recheck EKG * ENT to place wick for delivery of eardrops (4) Hypertension: Code(s): I10 - Essential (primary) hypertension Status: Acute Assessment and Plan: blood pressure reviewed and has been labile. Elevated in the 170s systolic this morning, now 106/69 this afternoon * continue losartan, increased to 50 mg daily * continue home amlodipine 10 mg daily * monitor BP trends (5) DM2 (diabetes mellitus, type 2): Code(s): E11.9 - Type 2 diabetes mellitus without complications Status: Acute Assessment and Plan: A1c is 8.9. Blood sugars have been slightly elevated above target, mostly in the 200s. Today ranging 170-217 * home insulin regimen of 70-30 mix 45 units qAM and NPH 31 units qHS * increase 70-30 to 47 units qAM * continue home NPH 31 units qHS * high dose slidinig scale insulin * continue sliding scale insulin, and hypoglycemic protocol * monitor glucose trends and adjust insulin as needed * home metformin on hold (6) Neuropathy: Code(s): G62.9 - Polyneuropathy, unspecified Status: Chronic Assessment and Plan: no acute issues. * Continue home gabapentin Subjective Date/time seen: 05/29/22 16:12 Interval history: date of service: 05/29/2022 Marcos Webb is a 66-year-old male with a history of type 2 diabetes mellitus, Parkinson's disease with DBS in place, hypertension, hyperlipidemia, neuropathy, and urinary incontinence who is seen in follow-up for cognitive and functional decline. The patient is not able to provide much history. He is able to state his name, he knows recurrent location, he knows the month but not the year. During my encounter, he handed me his blanket and asked me to unbutton it and then asked me today and him a Gatorade sitting over in the window sill but there was no drink there. The patient was not really able to provide any additional reliable history. He did specifically denies chest pain, abdominal pain, nausea, or vomiting. Review of Systems Review of Systems: ROS unobtainable: Yes unobtainable due to mental status Exam
--- NOTE | 2022-05-29 16:12 | PM.IMPN ---
Progress Note: A&P Assessment and Plan (1) Frequent falls: Code(s): R29.6 - Repeated falls Status: Acute Assessment and Plan: reportedly had 3 falls at home over the last several days likely related to progression of Parkinson's disease head CT with no acute findings appreciate neurology consultation fall precautions in place will need outpatient evaluation of his deep brain stimulator planning for SNF placement (2) Parkinson's disease dementia: Code(s): G20 - Parkinson's disease; F02.80 - Dementia in other diseases classified elsewhere, unspecified severity, without behavioral disturbance, psychotic disturbance, mood disturbance, and anxiety Status: Chronic Assessment and Plan: patient with history of Parkinson's disease, managed by Neurology continue home Sinemet continue entacapone appreciate neurology consultation (3) Mastoiditis: Code(s): H70.90 - Unspecified mastoiditis, unspecified ear Status: Acute Assessment and Plan: Pt complaining of left ear pain, worsens with swallowing Unable to visualize left internal ear due to external ear swelling Head CT on admission demonstrates extensive effusions of the left mastoid air cells Discussed case with ENT, Dr. Chapin. Appreciate consultation Will begin p.o. ciprofloxacin. QTc 420 in January. Will recheck EKG ENT to place wick for delivery of eardrops (4) Hypertension: Code(s): I10 - Essential (primary) hypertension Status: Acute Assessment and Plan: blood pressure reviewed and has been labile. Elevated in the 170s systolic this morning, now 106/69 this afternoon continue losartan, increased to 50 mg daily continue home amlodipine 10 mg daily monitor BP trends (5) DM2 (diabetes mellitus, type 2): Code(s): E11.9 - Type 2 diabetes mellitus without complications Status: Acute Assessment and Plan: A1c is 8.9. Blood sugars have been slightly elevated above target, mostly in the 200s. Today ranging 170-217 home insulin regimen of 70-30 mix 45 units qAM and NPH 31 units qHS increase 70-30 to 47 units qAM continue home NPH 31 units qHS high dose slidinig scale insulin continue sliding scale insulin, and hypoglycemic protocol monitor glucose trends and adjust insulin as needed home metformin on hold (6) Neuropathy: Code(s): G62.9 - Polyneuropathy, unspecified Status: Chronic Assessment and Plan: no acute issues. Continue home gabapentin Subjective Date/time seen: 05/29/22 16:12 Interval history: date of service: 05/29/2022 Marcos Webb is a 66-year-old male with a history of type 2 diabetes mellitus, Parkinson's disease with DBS in place, hypertension, hyperlipidemia, neuropathy, and urinary incontinence who is seen in follow-up for cognitive and functional decline. The patient is not able to provide much history. He is able to state his name, he knows recurrent location, he knows the month but not the year. During my encounter, he handed me his blanket and asked me to unbutton it and then asked me today and him a Gatorade sitting over in the window sill but there was no drink there. The patient was not really able to provide any additional reliable history. He did specifically denies chest pain, abdominal pain, nausea, or vomiting. Review of Systems Review of Systems: ROS unobtainable: Yes unobtainable due to mental status Exam Narrative: General: Well-nourished, well-appearing 66-year-old male, sitting up in bed, comfortable, NARD Neuro: awake, alert and oriented x3, speech clear, no focal neuro deficits noted, exhibits confusion HEENMT: normocephalic, atraumatic, EOMI, sclerae anicteric, right ear canal with cerumen unable to visualize TM, left external ear with swelling, unable to visualize canal, left ear tenderness to palpation of tragus Respiratory: clear to auscultat
[2022-05-29 16:31] LABS: Glucose Point of Care 145 mg/dl (65-105)
[2022-05-29] MEDS: SERTRALINE HCL 50 MG TABLET PO (17:02)
--- NOTE | 2022-05-29 17:31 | WPDPROCEDUR ---
Procedures Other Procedures Procedure 1: Other Procedure: Procedure would be left-sided ear placement of otowick. Canal examined incredibly edematous there was purulence deep to the tragus otowick placed patient tolerated the procedure well.
--- NOTE | 2022-05-29 17:32 | WPDCN ---
Assessment and Plan Assessment and plan (1) Mastoiditis: Code(s): H70.90 - Unspecified mastoiditis, unspecified ear Status: Acute Assessment and Plan: patient likely to be discharged soon. Would recommend b.i.d. oral ciprofloxacin 250 mg should suffice. Drops t.i.d. Ciprodex would be best to 5 drops. Follow-up with me next week please patient will likely need otowick removal debridement continued antibiosis via G TTS. (2) Otitis externa: Code(s): H60.90 - Unspecified otitis externa, unspecified ear Status: Acute HPI Data of Consult Date/Time: 05/29/22 17:32 Requesting Physician: Serene Ward PA-C Primary Care Provider: Miguel Angel Scott, Consult Narrative Narrative: Marcos Webb is a 66 year old male Patient awaiting placement complaint of left ear pain CT the past several days demonstrates a diffuse left-sided mastoid effusion canal wall thickening there is no coalescence which is good the patient reports pain and there is pain to examination. Consult to further evaluation treatment. Review of Systems Review of Systems: ROS unobtainable: Yes unobtainable due to mental status PMFSH Past Medical History Medical History Altered mental status DM2 (diabetes mellitus, type 2) Hyperlipidemia Hypertension Left ankle sprain Neuropathy Parkinsons disease Primary osteoarthritis of right shoulder Urinary incontinence Surgical History Surgical History History of carpal tunnel surgery Left Side 2014 Right Side 2014 Family History Family History Other Diabetes mellitus Family history of arthritis Family history of cardiovascular disease Family history of malignant neoplasm Hypertension Social History Social History Smoking status: Unknown if ever smoked Alcohol intake: unknown Substance use: unknown Spiritual care concerns: No Meds Home Medications and Allergies Home Medications Medication Instructions Recorded Confirmed Type aspirin 81 mg tablet,delayed 81 mg PO DAILY 08/31/19 05/27/22 History release (Adult Low Dose Aspirin) docusate sodium 100 mg tablet 100 mg PO BID 08/31/19 05/27/22 History polyethylene glycol 3350 17 17 gm PO DAILY 08/31/19 05/27/22 History gram/dose oral powder (Miralax) acetaminophen 500 mg tablet 500 mg PO Q6H PRN Pain 10/31/20 05/27/22 History vitamin A-vitamin C-vit E-min 1 tablet PO DAILY 10/31/20 05/27/22 History tablet (Vision tablet) vitamin B complex (B 1 tablet PO DAILY 10/31/20 05/27/22 History Complex-Vitamin B12 tablet) entacapone 200 mg tablet (Comtan) 200 mg PO BID #60 tabs 11/12/20 05/27/22 Rx lancets 28 gauge (FreeStyle See Rx Instructions .Route 12/18/20 05/27/22 Rx Lancets) .COMPLEX #300 ea carbidopa 25 mg-levodopa 100 mg 2 tablet PO .Q3H WA 08/28/21 05/27/22 History tablet (Sinemet) gabapentin 100 mg capsule 100 mg PO TID 90 days #270 caps 08/28/21 05/27/22 Rx sertraline 100 mg tablet 100 mg PO .1 QAM, 1/2 QPM #135 tabs 10/22/21 05/27/22 Rx insulin NPH isoph U-100 human 100 31 unit subcut HS 04/16/22 05/27/22 History unit/mL subcutaneous suspension (Novolin N NPH U-100 Insulin isophane) insulin human U-100 NPH-regulr 45 unit subcut QAM 04/16/22 05/27/22 History 70-30 mix 100 unit/mL subcutaneous susp (Novolin 70/30 U-100 Insulin) melatonin 10 mg tablet 10 mg PO QHS 04/16/22 05/27/22 History quetiapine 25 mg tablet (Seroquel) 25 mg PO QHS 04/16/22 05/27/22 History insulin syringe-needle U-100 1 mL #100 ea 04/26/22 05/27/22 Rx 31 gauge x 5/16 (BD Insulin Syringe Ultra-Fine) amlodipine 5 mg tablet 1 mg PO DAILY 05/27/22 05/27/22 History atorvastatin 40 mg tablet 40 mg PO HS 05/27/22 05/27/22 History losartan 25 mg tablet 25 mg PO DAILY
[2022-05-29 19:59] LABS: Glucose Point of Care 110 mg/dl (65-105)
[2022-05-29 20:00] VITALS: O2SAT 95
[2022-05-29] MEDS: NEOMYCIN/POLYMYXIN/HYDROCORT OT SUSP 10 ML BTL (*BKC) 3 DROP LEFT EAR (20:07)
[2022-05-29] MEDS: CIPROFLOXACIN 500 MG TAB PO (20:08)
[2022-05-29] MEDS: QUEtiapine FUMARATE 25 MG TABLET PO (20:08)
[2022-05-29] MEDS: ATORVASTATIN 40 MG TABLET PO (20:08)
[2022-05-29] MEDS: MELATONIN 5 MG TABLET 10 MG PO (20:08)
[2022-05-29 22:00] VITALS: BP 162/82; PULSE 71; RESP 16; TEMP 36.3; O2SAT 94
[2022-05-30] MEDS: ACETAMINOPHEN 500 MG TABLET PO (05:08)
[2022-05-30] MEDS: CARBIDOPA/LEVODOPA 25/100 MG TABLET 2 TABLET PO ×6 (05:09→22:00)
[2022-05-30 06:00] VITALS: BP 142/90; PULSE 65; RESP 20; TEMP 36.1; O2SAT 97
[2022-05-30 06:34] LABS: Hematocrit 33.3 % (42.0-52.0); Hemoglobin 10.8 g/dL (14.0-18.0); Mean Corpuscular HGB Conc 32.4 g/dl (32-36); Mean Corpuscular Hemoglobin 26.5 pg (26-34); Mean Corpuscular Volume 81.6 fl (80-100); Mean Platelet Volume 9.8 fl (7.4-10.4); Platelet Count Result 314 k/mm3 (150-375); Red Blood Count 4.08 M/mm3 (4.6-6.20); Red Cell Distribution Width 13.2 % (11.5-14.5); White Blood Count 8.5 K/mm3 (4.5-10.0)
[2022-05-30 06:40] LABS: Anion Gap 14 mmol/L (8-16); Blood Urea Nitrogen 14 mg/dL (9-20); Calcium 8.5 mg/dL (8.4-10.2); Carbon Dioxide 24 mmol/L (22-30); Chloride 99 mmol/L (98-107); Estimated CRCL calculation 112 ml/min; Estimated Glomerular Filt Rate > 60; Glucose 144 mg/dL (65-110); Potassium 3.8 mmol/L (3.4-5.0); Sodium 137 mmol/L (137-145)
[2022-05-30 07:42] LABS: Glucose Point of Care 151 mg/dl (65-105)
[2022-05-30] MEDS: SERTRALINE HCL 50 MG TABLET 100 MG PO (08:58)
[2022-05-30] MEDS: OPTI-GEN TAB 1 TABLET PO (08:58)
[2022-05-30] MEDS: CIPROFLOXACIN 500 MG TAB PO ×2 (08:58→22:00)
[2022-05-30] MEDS: VITAMIN B COMPLEX CAPSULE 1 CAP PO (08:58)
[2022-05-30] MEDS: GABAPENTIN 100 MG CAPSULE PO ×3 (08:59→16:17)
[2022-05-30] MEDS: LOSARTAN POTASSIUM 50 MG TABLET PO (08:59)
[2022-05-30] MEDS: ENTACAPONE 200 MG TABLET PO ×2 (08:59→16:17)
[2022-05-30] MEDS: ASPIRIN 81 MG ENTERIC TABLET PO (08:59)
[2022-05-30] MEDS: amLODIPine BESYLATE 5 MG TABLET 10 MG PO (08:59)
[2022-05-30] MEDS: FERROUS SULFATE 324 MG TABLET PO ×2 (08:59→16:17)
[2022-05-30] MEDS: INSULIN HUMAN ISOPHAN/REGULAR 70/30 (*BKC) 100 UNITS/ML 47 UNITS SUB-Q (09:00)
[2022-05-30] MEDS: NEOMYCIN/POLYMYXIN/HYDROCORT OT SUSP 10 ML BTL (*BKC) 3 DROP LEFT EAR ×2 (09:00→23:48)
--- NOTE | 2022-05-30 09:00 | ECG_ITS ---
Measurements Intervals [place] Rate: 71 P: 177 WA: 318 QRS: -3 QRSD: 105 T: 64 QT: 424 QTc: 463 Interpretive Statements SINUS RHYTHM NONSPECIFIC ST AND T WAVE ABNORMALITY BASELINE ARTIFACT PRESENT COMPARED TO ECG 01/19/2021 20:08:36 NO SIGNIFICANT CHANGES Electronically Signed On 05-30-2022 14:32:14 CDT by Liss Augustine M.D.
[2022-05-30] MEDS: DOCUSATE SODIUM 100 MG CAPSULE PO ×2 (09:01→16:17)
[2022-05-30] MEDS: polyethylene glycoL 3350 17 GM POWD.PACK PO (09:01)
--- NOTE | 2022-05-30 10:45 | PCOTNOTE ---
Patient unavailable to be seen at this time. Patient is currently having an EKG done in the room. Will attempt again later.
[2022-05-30 11:13] LABS: Glucose Point of Care 172 mg/dl (65-105)
[2022-05-30 13:49] VITALS: BP 146/80; PULSE 70; RESP 16; TEMP 36.3; O2SAT 97
--- NOTE | 2022-05-30 15:53 | P.PNIM_ITS ---
Progress Note: A&P Assessment and Plan (1) Frequent falls: Code(s): R29.6 - Repeated falls Status: Acute Assessment and Plan: reportedly had 3 falls at home over the last several days * likely related to progression of Parkinson's disease * head CT with no acute findings * appreciate neurology consultation * fall precautions in place * will need outpatient evaluation of his deep brain stimulator * planning for SNF placement however insurance denied after completion of peer to peer today. Now planning to return home with outpatient PT/OT. Hopeful discharge tomorrow (2) Parkinson's disease dementia: Code(s): G20 - Parkinson's disease; F02.80 - Dementia in other diseases classified elsewhere, unspecified severity, without behavioral disturbance, psychotic disturbance, mood disturbance, and anxiety Status: Chronic Assessment and Plan: patient with history of Parkinson's disease, managed by Neurology * continue home Sinemet * continue entacapone * appreciate neurology consultation * would recommend starting donepezil 5 mg qHS however pt on cipro and at risk for QT prolongation. Consider starting after completion of antibiotics (3) Mastoiditis: Code(s): H70.90 - Unspecified mastoiditis, unspecified ear Status: Acute Assessment and Plan: Pt complained of left ear pain, worsened with swallowing * Unable to visualize left internal ear due to external ear swelling * Head CT on admission demonstrates extensive effusions of the left mastoid air cells * Discussed case with ENT, Dr. Chapin. Appreciate consultation * Otowick placed on 05/[address] Chapin * Continue PO Cipro 250 bid x7 days * Cortisporin drops 3 drops BID. Will plan to transition to Ciprodex on discharge (nonformulary here). * Outpatient ENT follow up in 1 week. (4) Hypertension: Code(s): I10 - Essential (primary) hypertension Status: Acute Assessment and Plan: blood pressure reviewed and has been labile. Elevated in the 170s systolic this morning, now 106/69 this afternoon * continue losartan 50 mg daily * continue home amlodipine 10 mg daily * monitor BP trends (5) DM2 (diabetes mellitus, type 2): Code(s): E11.9 - Type 2 diabetes mellitus without complications Status: Acute Assessment and Plan: A1c is 8.9. Blood sugars have been slightly elevated above target but improving today 140-170 * home insulin regimen of 70-30 mix 45 units qAM and NPH 31 units qHS * increase 70-30 to 47 units qAM * continue home NPH 31 units qHS * high dose slidinig scale insulin * continue sliding scale insulin, and hypoglycemic protocol * monitor glucose trends and adjust insulin as needed * home metformin on hold (6) Neuropathy: Code(s): G62.9 - Polyneuropathy, unspecified Status: Chronic Assessment and Plan: no acute issues. * Continue home gabapentin Subjective Date/time seen: 05/30/22 15:53 Interval history: date of service: 05/30/2022 Marcos Webb is a 66-year-old male with a history of type 2 diabetes mellitus, Parkinson's disease with DBS in place, hypertension, hyperlipidemia, neuropathy, and urinary incontinence who is seen in follow-up for cognitive and functional decline. The patient is not able to provide any history due to his dementia. He states he is comfortable and denies pain. States his ear seems a little better today. Not able to obtain any additional history. Review of Systems
--- NOTE | 2022-05-30 15:53 | PM.IMPN ---
Progress Note: A&P Assessment and Plan (1) Frequent falls: Code(s): R29.6 - Repeated falls Status: Acute Assessment and Plan: reportedly had 3 falls at home over the last several days likely related to progression of Parkinson's disease head CT with no acute findings appreciate neurology consultation fall precautions in place will need outpatient evaluation of his deep brain stimulator planning for SNF placement however insurance denied after completion of peer to peer today. Now planning to return home with outpatient PT/OT. Hopeful discharge tomorrow (2) Parkinson's disease dementia: Code(s): G20 - Parkinson's disease; F02.80 - Dementia in other diseases classified elsewhere, unspecified severity, without behavioral disturbance, psychotic disturbance, mood disturbance, and anxiety Status: Chronic Assessment and Plan: patient with history of Parkinson's disease, managed by Neurology continue home Sinemet continue entacapone appreciate neurology consultation would recommend starting donepezil 5 mg qHS however pt on cipro and at risk for QT prolongation. Consider starting after completion of antibiotics (3) Mastoiditis: Code(s): H70.90 - Unspecified mastoiditis, unspecified ear Status: Acute Assessment and Plan: Pt complained of left ear pain, worsened with swallowing Unable to visualize left internal ear due to external ear swelling Head CT on admission demonstrates extensive effusions of the left mastoid air cells Discussed case with ENT, Dr. Chapin. Appreciate consultation Otowick placed on 05/[address] Chapin Continue PO Cipro 250 bid x7 days Cortisporin drops 3 drops BID. Will plan to transition to Ciprodex on discharge (nonformulary here). Outpatient ENT follow up in 1 week. (4) Hypertension: Code(s): I10 - Essential (primary) hypertension Status: Acute Assessment and Plan: blood pressure reviewed and has been labile. Elevated in the 170s systolic this morning, now 106/69 this afternoon continue losartan 50 mg daily continue home amlodipine 10 mg daily monitor BP trends (5) DM2 (diabetes mellitus, type 2): Code(s): E11.9 - Type 2 diabetes mellitus without complications Status: Acute Assessment and Plan: A1c is 8.9. Blood sugars have been slightly elevated above target but improving today 140-170 home insulin regimen of 70-30 mix 45 units qAM and NPH 31 units qHS increase 70-30 to 47 units qAM continue home NPH 31 units qHS high dose slidinig scale insulin continue sliding scale insulin, and hypoglycemic protocol monitor glucose trends and adjust insulin as needed home metformin on hold (6) Neuropathy: Code(s): G62.9 - Polyneuropathy, unspecified Status: Chronic Assessment and Plan: no acute issues. Continue home gabapentin Subjective Date/time seen: 05/30/22 15:53 Interval history: date of service: 05/30/2022 Marcos Webb is a 66-year-old male with a history of type 2 diabetes mellitus, Parkinson's disease with DBS in place, hypertension, hyperlipidemia, neuropathy, and urinary incontinence who is seen in follow-up for cognitive and functional decline. The patient is not able to provide any history due to his dementia. He states he is comfortable and denies pain. States his ear seems a little better today. Not able to obtain any additional history. Review of Systems Review of Systems: ROS unobtainable: Yes unobtainable due to mental status Exam Narrative: General: well-nourished, well-appearing 66-year-old male, sitting up in bed, comfortable, NARD Neuro: awake, alert and oriented x2, speech clear, no focal neuro deficits noted, exhibits confusion HEENMT: normocephalic, atraumatic, EOMI, sclerae anicteric Respiratory: clear to auscultation bilaterally, nonlabored breathing Cardio: regular rate, regular r
[2022-05-30 16:31] LABS: Glucose Point of Care 149 mg/dl (65-105)
[2022-05-30] MEDS: SERTRALINE HCL 50 MG TABLET PO (18:22)
[2022-05-30 22:00] VITALS: BP 161/83; PULSE 67; RESP 18; TEMP 36.1; O2SAT 94
[2022-05-30] MEDS: ATORVASTATIN 40 MG TABLET PO (22:00)
[2022-05-30] MEDS: QUEtiapine FUMARATE 25 MG TABLET PO (22:00)
[2022-05-30] MEDS: MELATONIN 5 MG TABLET 10 MG PO (22:00)
[2022-05-30 22:20] LABS: Glucose Point of Care 107 mg/dl (65-105)
[2022-05-31] MEDS: CARBIDOPA/LEVODOPA 25/100 MG TABLET 2 TABLET PO ×3 (05:24→12:31)
[2022-05-31 06:00] VITALS: BP 175/83; PULSE 73; RESP 18; TEMP 35.9; O2SAT 97
[2022-05-31 08:06] LABS: Glucose Point of Care 165 mg/dl (65-105)
[2022-05-31] MEDS: GABAPENTIN 100 MG CAPSULE PO ×2 (09:31→12:32)
[2022-05-31] MEDS: LOSARTAN POTASSIUM 50 MG TABLET PO (09:31)
[2022-05-31] MEDS: DOCUSATE SODIUM 100 MG CAPSULE PO (09:31)
[2022-05-31] MEDS: VITAMIN B COMPLEX CAPSULE 1 CAP PO (09:31)
[2022-05-31] MEDS: ASPIRIN 81 MG ENTERIC TABLET PO (09:32)
[2022-05-31] MEDS: ENTACAPONE 200 MG TABLET PO (09:32)
[2022-05-31] MEDS: amLODIPine BESYLATE 5 MG TABLET 10 MG PO (09:32)
[2022-05-31] MEDS: OPTI-GEN TAB 1 TABLET PO (09:32)
[2022-05-31] MEDS: SERTRALINE HCL 50 MG TABLET 100 MG PO (09:32)
[2022-05-31] MEDS: FERROUS SULFATE 324 MG TABLET PO (09:32)
[2022-05-31] MEDS: polyethylene glycoL 3350 17 GM POWD.PACK PO (09:33)
[2022-05-31] MEDS: NEOMYCIN/POLYMYXIN/HYDROCORT OT SUSP 10 ML BTL (*BKC) 3 DROP LEFT EAR (09:33)
--- NOTE | 2022-05-31 11:07 | PM.DS ---
DS: Admitting Diagnosis Discharge Date 05/31/2022 Admitting Diagnosis Falls DS: Discharge Diagnosis Discharge Diagnosis (1) Frequent falls: Code(s): R29.6 - Repeated falls Status: Acute Assessment and Plan: Reportedly had 3 falls at home over the last several days prior to admission. Likely related to progression of Parkinson's disease. Head CT with no acute findings. Patient seen in consultation by Neurology. Will need outpatient evalution of his deep brain simulator to ensure no functional issues. Planned for SNF placement due to falls/weakness to allow for increased strength and mobility, however placement denied after completion of peer to peer. Decision made for patient to return home with his with outpatient PT/OT. Fall precautions discussed with family. (2) Parkinson's disease dementia: Code(s): G20 - Parkinson's disease; F02.80 - Dementia in other diseases classified elsewhere, unspecified severity, without behavioral disturbance, psychotic disturbance, mood disturbance, and anxiety Status: Chronic Assessment and Plan: Patient with history of Parkinson's disease, managed by Neurology. Continue home Sinemet and entacapone. Seen by neurology with recommendations for starting donepezil. Donepezil held while patient on Cipro due to risk for QT prolongation, instructed to start donepezil in 1 week following completion of Cipro. (3) Mastoiditis: Code(s): H70.90 - Unspecified mastoiditis, unspecified ear Status: Acute Assessment and Plan: Pt complained of left ear pain, worsened with swallowing. On my exam, unable to visualize left internal ear due to external ear swelling. Head CT revealed extensive effusions of the left mastoid air cells. He was seen in consultation by ENT, Dr. Sawant. Otowick placed on 05/29. Received PO Cipro and will continue 250 mg BID for a total of 7 days. Ciprodex drops 5 drops to left ear TID for 10 days [address] will see Dr. Chapin outpatient in 1 week. aware and will transport to appointment. (4) Hypertension: Code(s): I10 - Essential (primary) hypertension Status: Acute Assessment and Plan: Blood pressure reviewed and was elevated above target. Losartan increased to 50 mg daily. Continue home amlodipine 10 mg daily. Outpatient follow up with PCP in 1 week for BP check (5) DM2 (diabetes mellitus, type 2): Code(s): E11.9 - Type 2 diabetes mellitus without complications Status: Acute Assessment and Plan: A1c is 8.9. Blood sugars were slightly elevated above target but improved with increase of AM insulin 70-30 to 47 units qAM. Continue PM NPH 31 units qHS. Continue home metformin. Monitor blood sugars closely with meals and at bedtime and record for review by PCP. (6) Neuropathy: Code(s): G62.9 - Polyneuropathy, unspecified Status: Chronic Assessment and Plan: No acute issues. Continue home gabapentin DS: Summary Hospital Course Hospital Course: Date of admission: 05/27/2022 Date of discharge: 05/31/2022 Marcos Webb is a 66-year-old male with a history of Parkinson's disease with DBS in place, type 2 diabetes mellitus, hypertension, hyperlipidemia, neuropathy, and urinary incontinence who presented to the emergency department on 05/27/2022 with complaints of several falls ongoing for the past month. On presentation to the ED, his vital signs were stable, laboratory workup unremarkable with no electrolyte abnormalities, head CT showed no acute intracranial findings with evidence of extensive effusion of the left mastoid air cells. He was admitted to the hospitalist service for further evaluation and management and was seen in consultation by ENT. Please see above for further details. Initial plan was for placement to SNF, however this was denied by insurance. His felt comfortable with returning home with outpatient PT and OT follow-up. Patient will continue
[2022-05-31 11:45] LABS: Glucose Point of Care 234 mg/dl (65-105)
[2022-05-31] MEDS: ACETAMINOPHEN 500 MG TABLET PO (12:31)
== END 2022-05-31 12:45 | disposition home health service (06) ==
LOC: ANHED 19:35 → ANH3MEDSUR 05-28 10:07
PROVIDERS: Nurse Practitioner; Physician Assistant; Admitting Provider Internal Medicine; Emergency Provider Emergency Medicine; PCP Family Medicine; Visit Provider Physician Assistant
DX: R29.6 Repeated falls (principal); G20 Parkinson's disease; F02.80 Dementia in other diseases classified elsewhere, unspecified severity, without behavioral disturbance, psychotic disturbance, mood disturbance, and anxiety; I10 Essential (primary) hypertension; E11.42 Type 2 diabetes mellitus with diabetic polyneuropathy; R53.1 Weakness; Z96.82 Presence of neurostimulator; I67.2 Cerebral atherosclerosis; R90.82 White matter disease, unspecified; R32 Unspecified urinary incontinence; E78.5 Hyperlipidemia, unspecified; H70.91 Unspecified mastoiditis, right ear; H60.91 Unspecified otitis externa, right ear; M19.011 Primary osteoarthritis, right shoulder; R62.7 Adult failure to thrive; R94.31 Abnormal electrocardiogram [ECG] [EKG]; Z68.33 Body mass index [BMI] 33.0-33.9, adult; Z79.82 Long term (current) use of aspirin; Z79.1 Long term (current) use of non-steroidal anti-inflammatories (NSAID); Z79.4 Long term (current) use of insulin; Z79.84 Long term (current) use of oral hypoglycemic drugs; Z79.899 Other long term (current) drug therapy; Z83.3 Family history of diabetes mellitus; Z82.49 Family history of ischemic heart disease and other diseases of the circulatory system
CPT/HCPCS: 92504; 36415; 70450; 70491; 80048; 80053; 82607; 82728; 82746; 82948; 83036; 83540; 83550; 84466; 85025; 85027; 93005; 97110; 97163; 97166; 97530; 99285; A9270; G0378; J1815; Q9967

== ENCOUNTER 2022-09-12 08:57 | Observation (INO) | payer MEDICARE, SELFPAY ==
--- NOTE | ~2022-09-12 | CT_ITS ---
EXAMINATION: CT brain wo con DATE: 09/12/2022 13:35 INDICATION: Confusion. Hypoglycemia. TECHNIQUE: Computed tomography (CT) of the head was performed without intravenous contrast. The mA wa s adjusted according to patient size. Iterative reconstruction technique was employed. The dose-lengt h product was 681.00 mGy-cm. COMPARISON: Head CT 05/27/2022 FINDINGS: There is no intracranial hemorrhage, acute infarction, or abnormal intracranial mass lesion . There is a right-sided deep brain stimulator. The ventricles are normal in size. There is a left ma stoid effusion. There is mild mucosal thickening in the paranasal sinuses. There are likely changes o f ocular lens replacement surgeries. IMPRESSION: 1. No acute intracranial pathology. Reviewed, dictated and finalized at location A. PRIMARY CARE PHYSICIAN
[2022-09-12 08:56] VITALS: BP 167/78; PULSE 67; RESP 18; TEMP 36.6; O2SAT 100
--- NOTE | 2022-09-12 09:05 | PC.NURSE ---
BS 88
[2022-09-12 09:08] LABS: Glucose Point of Care 88 mg/dl (65-105)
--- NOTE | 2022-09-12 09:11 | ED.GENADULT ---
HPI - General Adult General Chief complaint: Recheck/Abnormal Lab/Rx <Molly Romo PA-C - Last Filed: 09/12/22 17:48> Stated complaint: hypoglycemic <ALFREDO Rider Last Filed: 09/12/22 17:48> Time Seen by Provider: 09/12/22 09:03 <Mloly Romo PA-C - Last Filed: 09/12/22 17:48> Source: patient, EMS and old records reviewed <Molly Romo PA-C - Last Filed: 09/12/22 17:48> Mode of arrival: EMS <Molly Romo PA-C - Last Filed: 09/12/22 17:48> Limitations: no limitations <ALFREDO Rider Last Filed: 09/12/22 17:48> History of Present Illness HPI narrative: Patient is a 66-year-old male, with past medical history of DM, previous CVA with deficits, Parkinson's disease and dementia, who presents to the ED via EMS with report of hypoglycemia. Per EMS report, patient's called for EMS this morning due to the patient being weak and not acting right. Upon EMS's arrival, blood sugar was 45. He was given D10 through an IV en route to the ED. Recheck upon arrival to the ED was 88. Patient is alert and states he feels better. Patient does have a history of diabetes mellitus and uses Novolin 70/30, 47 units in the a.m. Patient states he must have given himself too much insulin or forgotten to eat. He was given food upon arrival to the ED. He does complain of a headache and would like Tylenol. No other complaints currently. <ALFREDO Rider Last Filed: 09/12/22 17:48> Related Data Home medications: Home Medications Medication Instructions Recorded Confirmed aspirin 81 mg tablet,delayed 81 mg PO DAILY 08/31/19 07/18/22 release (Adult Low Dose Aspirin) docusate sodium 100 mg tablet 100 mg PO BID 08/31/19 07/18/22 polyethylene glycol 3350 17 17 gm PO DAILY 08/31/19 07/18/22 gram/dose oral powder (Miralax) acetaminophen 500 mg tablet 500 mg PO Q6H PRN Pain 10/31/20 07/18/22 vitamin A-vitamin C-vit E-min 1 tablet PO DAILY 10/31/20 07/18/22 tablet (Vision tablet) vitamin B complex (B 1 tablet PO DAILY 10/31/20 07/18/22 Complex-Vitamin B12 tablet) carbidopa 25 mg-levodopa 100 mg 2 tablet PO .Q3H WA 08/28/21 07/18/22 tablet (Sinemet) insulin NPH isoph U-100 human 100 31 unit subcut HS 04/16/22 07/18/22 unit/mL subcutaneous suspension (Novolin N NPH U-100 Insulin isophane) melatonin 10 mg tablet 10 mg PO QHS 04/16/22 07/18/22 atorvastatin 40 mg tablet 40 mg PO HS 05/27/22 07/18/22 metformin 1,000 mg tablet 1,000 mg PO BID 05/27/22 07/18/22 quetiapine 25 mg tablet (Seroquel) 50 mg PO QHS 07/02/22 07/18/22 <ALFREDO Rider Last Filed: 09/12/22 17:48> Allergies/adverse reactions: Allergies Allergy/AdvReac Type Severity Reaction Status Date / Time Penicillins Allergy Intermediate Unknown Verified 09/12/22 09:03 acetaminophen Allergy Unknown ams/somnole Verified 09/12/22 09:03 nce hydrocodone AdvReac Severe ams/somnole Verified 09/12/22 09:03 nce diazepam AdvReac Intermediate somnolence/ Verified 09/12/22 09:03 ams <ALFREDO Rider Last Filed: 09/12/22 17:48> Review of Systems Review of Systems: CONSTITUTIONAL: Denies fever, chills, or sweats. EYES: Denies visual changes. CARDIOVASCULAR: Denies chest pain, palpitations, or edema. RESPIRATORY: Denies cough or dyspnea. GASTROINTESTINAL: Denies abdominal pain, nausea, vomiting, or diarrhea. MUSCULOSKELETAL: Denies back pain, joint pain, or myalgia. NEUROLOGIC: See HPI. <ALFREDO Rider Last Filed: 09/12/22 17:48> All systems reviewed & are unremarkable except as noted in HPI and below <Molly Romo PA-C - Last Filed: 09/12/22 17:48> [facility] Past Medical History Medical History: Medical History Altered mental status DM2 (diabetes mellitus, type 2) Hyperlipidemia Hypertension Left ankle sprain Neuropathy P
[2022-09-12] MEDS: ACETAMINOPHEN 500 MG TABLET PO ×2 (09:42→21:42)
[2022-09-12 10:17] VITALS: BP 117/88; PULSE 69; RESP 20; O2SAT 100
--- NOTE | 2022-09-12 10:22 | PC.NURSE ---
BS 114
[2022-09-12 10:25] LABS: Glucose Point of Care 114 mg/dl (65-105)
[2022-09-12 11:14] LABS: Glucose Point of Care 107 mg/dl (65-105)
--- NOTE | 2022-09-12 11:26 | PC.NURSE ---
Spoke with patient's , Maty, and she states that she wants the patient placed in a rehab facility. She states patient has fallen 17 times since [place] and she is unable to care for him. Provider made aware of this. Patient's is on her way to speak with provider.
--- NOTE | 2022-09-12 11:52 | PC.NURSE ---
Spoke with care coordination, Joao, and he states he will begin working on placement for the patient.
[2022-09-12 12:16] LABS: Basophils Percent Auto 0.5 % (0.2-1.2); Eosinophils Absolute Auto 0.1 K/mm3 (0-0.3); Eosinophils Percent Auto 1.7 % (0-4.4); Hematocrit 31.4 % (42.0-52.0); Hemoglobin 9.6 g/dL (14.0-18.0); Immature Granulocyte Absolute 0.03 K/mm3 (0.00-0.031); Immature Granulocyte Percent A 0.4 % (0-0.5); Lymphocytes Absolute Auto 1.76 K/mm3 (0.9-3.2); Lymphocytes Percent Auto 21.6 % (18.3-44.2); Mean Corpuscular HGB Conc 30.6 g/dl (32-36); Mean Corpuscular Hemoglobin 24.2 pg (26-34); Mean Corpuscular Volume 79.1 fl (80-100); Mean Platelet Volume 9.2 fl (7.4-10.4); Monocytes Absolute Auto 0.5 K/mm3 (0.1-0.6); Monocytes Percent Auto 5.9 % (2.6-8.5); Neutrophils Absolute Auto 5.7 K/mm3 (1.3-6.7); Neutrophils Percent Auto 69.9 % (45.5-73.1); Platelet Count Result 347 k/mm3 (150-375); Red Blood Count 3.97 M/mm3 (4.6-6.20); Red Cell Distribution Width 15.9 % (11.5-14.5); White Blood Count 8.2 K/mm3 (4.5-10.0)
[2022-09-12 12:24] LABS: Alanine Aminotransferase 15 U/L (6-50); Albumin Level 4.1 g/dL (3.5-5.1); Alkaline Phosphatase 103 U/L (38-126); Anion Gap 7 mmol/L (8-16); Aspartate Amino Transferase 29 U/L (17-59); Bilirubin,Total 0.5 mg/dL (0.2-1.3); Blood Urea Nitrogen 27 mg/dL (9-20); Calcium 8.6 mg/dL (8.4-10.2); Carbon Dioxide 28 mmol/L (22-30); Chloride 99 mmol/L (98-107); Estimated CRCL calculation 96 ml/min; Estimated Glomerular Filt Rate > 60; Glucose 126 mg/dL (65-110); Potassium 4.5 mmol/L (3.4-5.0); Sodium 134 mmol/L (137-145)
[2022-09-12 12:48] LABS: Influenza A QL RT-PCR Negative (Negative); Influenza B QL RT-PCR Negative (Negative); SARS-CoV-2 RNA PCR Positive
[2022-09-12 13:24] LABS: Glucose Point of Care 106 mg/dl (65-105)
--- NOTE | 2022-09-12 14:00 | PM.IMHP ---
H&P: HPI History of Present Illness Date/Time: 09/12/22 14:00 Chief Complaint: Low blood sugar. Narrative: This 66-year-old male with history of stroke, Parkinson's, dementia, hypertension, insulin-dependent type 2 diabetes mellitus, and other comorbidities who presented to the emergency department via EMS from home for evaluation of low blood sugar. He is able to provide some history however his provides a majority of the following as he is not a great historian. Over last several days he has been increasingly weak and he has required more help at home to even get dressed or get out of bed. He has a wheeled walker at home and uses that or a wheelchair to get around. His gait is unsteady and he has a history of frequent falls, reportedly 14 falls since [place]. Luckily he has not sustained any significant injuries in the falls and his has been able to help him up. has tried to get him into a rehab facility to no avail and she had home health for a period of time though he gained little benefit from that. She thinks that his balance would improve if he had the opportunity to go to a rehab facility. In any event, he was not acting right this morning and he could barely elevate his arms and called 911. On EMS arrival his glucose was 45 and he was given D10 on the way to the hospital. Glucose has been stable since that time. Labs did not show any significant deviations from his baseline. Incidentally he tested positive for COVID and he does endorse having a mild headache states he has had a dry cough the last couple of days. Patient was set up for discharge home however does not feel that he should return home and would like him to be placed in a facility for rehab. That was unable to be done through the emergency department and he is being admitted in this setting. Currently has no complaints aside from the fact that he is hungry. Review of Systems Review of Systems: Review of systems was conducted. He has not had any fever. Denies sinus congestion sore throat. No chest pain or shortness of breath. Appetite has been fine. No nausea, vomiting, or diarrhea. Denies dysuria. He is on MiraLax at home and takes that as needed, if taken daily he will have loose stools. He has chronic sinus congestion which he and his state are not any different than normal. He has had a bit of a cough the last couple of days which is dry. On occasion he will cough with swallowing, especially liquids. Except as documented, all other systems were reviewed and are negative. [facility] Past Medical History Medical History (Updated 09/12/22 @ 19:34 by Laura Carranza PA-C) Anxiety Chronic anemia Dementia Depression Hyperlipidemia Hypertension Insulin dependent type 2 diabetes mellitus Parkinsons disease Paroxysmal atrial fibrillation Peripheral neuropathy Stargardts disease Urinary incontinence Surgical History Surgical History (Updated 09/12/22 @ 19:15 by Laura Carranza PA-C) History of appendectomy History of bilateral carpal tunnel release History of total right hip arthroplasty Status post deep brain stimulator placement Family History Family History Other Diabetes mellitus Family history of arthritis Family history of cardiovascular disease Family history of malignant neoplasm Hypertension Social History Social History (Updated 09/12/22 @ 19:14 by Laura Carranza PA-C) Social History: Healthcare power of county attorney: Maria A Webb, spouse. Code status: Full code. Smoking status: Never smoker Alcohol intake: never Substance use: never Substance use type: does not use Lack of Transportation: No Lack of Food: Never True Current Housing: I Have Housing Concerned About Future Housing: No Difficulty Paying Gas/Electric Bills: No Difficulty Paying for Meds: No Currently Unemployed: No Education: High School Diploma/GED
[2022-09-12 15:40] LABS: Glucose Point of Care 111 mg/dl (65-105)
[2022-09-12 16:10] VITALS: BMI 27.9
--- NOTE | 2022-09-12 16:15 | ADMGEN ---
This patient, Marcos Webb, was admitted to [facility] Surg Room 302-01. Patient/family oriented to hospital policies and general routines including ID bracelet, bed and alarms, visiting hours, pain management, procedures, bathroom and other care routines, personal items, smoking policy, room service/diet, and visiting hours. Information on how to activate the Rapid Response Team has been discussed. Patient/Family are encouraged to report perceived risks to care and to ask questions if they do not understand what they are told or what they should do.
[2022-09-12 16:16] LABS: Glucose Point of Care 135 mg/dl (65-105)
[2022-09-12] MEDS: DONEPEZIL HCL 5 MG TABLET 10 MG PO (21:36)
[2022-09-12] MEDS: QUEtiapine FUMARATE 25 MG TABLET 50 MG PO (21:36)
[2022-09-12] MEDS: ATORVASTATIN 40 MG TABLET PO (21:37)
[2022-09-12] MEDS: MELATONIN 5 MG TABLET 10 MG PO (21:37)
[2022-09-12] MEDS: ENTACAPONE 200 MG TABLET PO (21:38)
[2022-09-12] MEDS: GABAPENTIN 100 MG CAPSULE PO (21:43)
[2022-09-12 21:54] LABS: Glucose Point of Care 193 mg/dl (65-105)
[2022-09-12 21:59] LABS: Hemoglobin A1C 6.4 % (<5.7)
[2022-09-12 22:00] VITALS: BP 168/76; PULSE 72; RESP 18; TEMP 36.6; O2SAT 98
[2022-09-13] VITALS (7 sets, daily range): BP systolic 146–175; BP diastolic 70–91; PULSE 64–68; RESP 16–19; TEMP 36.1–36.5; O2SAT 97–99; BMI 27.9
[2022-09-13 00:04] LABS: Folic Acid 6.1 ng/mL (2.76->20)
[2022-09-13 03:39] LABS: Appearance Urine Clear (Clear); Bilirubin Urine Negative (Negative); Blood Urine Trace-intact (Negative); Color Urine Yellow (Yellow); Glucose Urine UA Negative (Negative); Ketones Urine Negative (Negative); Leukocyte Esterase Ur Negative LEU/UL (Negative); Nitrate Urine Negative (Negative); Protein Urine 3+ mg/dL (Negative); Urobilinogen Urine 0.2 mg/dL (<2.0)
[2022-09-13 03:55] LABS: RBC Urine 0-2 /hpf (0-2); Squamous Epithelial Cell Urine Rare /hpf (Few); WBC Urine 0-3 /hpf
[2022-09-13 04:05] LABS: Add Urine Microscopic? YES
[2022-09-13 06:10] LABS: Hematocrit 30.1 % (42.0-52.0); Hemoglobin 9.2 g/dL (14.0-18.0); Mean Corpuscular HGB Conc 30.6 g/dl (32-36); Mean Corpuscular Hemoglobin 23.9 pg (26-34); Mean Corpuscular Volume 78.2 fl (80-100); Mean Platelet Volume 9.4 fl (7.4-10.4); Platelet Count Result 346 k/mm3 (150-375); Red Blood Count 3.85 M/mm3 (4.6-6.20); Red Cell Distribution Width 15.9 % (11.5-14.5); White Blood Count 8.8 K/mm3 (4.5-10.0)
[2022-09-13 06:19] LABS: Anion Gap 6 mmol/L (8-16); Blood Urea Nitrogen 21 mg/dL (9-20); Calcium 8.8 mg/dL (8.4-10.2); Carbon Dioxide 28 mmol/L (22-30); Chloride 103 mmol/L (98-107); Estimated CRCL calculation 108 ml/min; Estimated Glomerular Filt Rate > 60; Glucose 146 mg/dL (65-110); Magnesium 1.6 mg/dL (1.6-2.3); Potassium 4.6 mmol/L (3.4-5.0); Sodium 137 mmol/L (137-145)
[2022-09-13 07:18] LABS: Iron 14 ug/dL (49-181)
[2022-09-13 07:28] LABS: Percent Iron Saturation 6 % (20-50)
[2022-09-13 07:36] LABS: Glucose Point of Care 132 mg/dl (65-105)
[2022-09-13] MEDS: CARBIDOPA/LEVODOPA 25/100 MG TABLET 2 TABLET PO ×5 (08:37→20:35)
[2022-09-13] MEDS: polyethylene glycoL 3350 17 GM POWD.PACK PO (08:37)
[2022-09-13] MEDS: SERTRALINE HCL 50 MG TABLET 100 MG PO (08:38)
[2022-09-13] MEDS: ENTACAPONE 200 MG TABLET PO ×2 (08:38→17:46)
[2022-09-13] MEDS: ASPIRIN 81 MG ENTERIC TABLET PO (08:38)
[2022-09-13] MEDS: amLODIPine BESYLATE 5 MG TABLET PO (08:38)
[2022-09-13] MEDS: VITAMIN B COMPLEX CAPSULE 1 CAP PO (08:38)
[2022-09-13] MEDS: OPTI-GEN TAB 1 TABLET PO (08:38)
[2022-09-13] MEDS: LOSARTAN POTASSIUM 25 MG TABLET PO (08:38)
[2022-09-13] MEDS: DOCUSATE SODIUM 100 MG CAPSULE PO ×2 (08:38→17:46)
[2022-09-13] MEDS: GABAPENTIN 100 MG CAPSULE PO ×3 (08:40→17:47)
--- NOTE | 2022-09-13 08:55 | PM.IMPN ---
Progress Note: A&P Assessment and Plan (1) Hypoglycemia: Code(s): E16.2 - Hypoglycemia, unspecified Status: Acute Assessment and Plan: Chronic type 2 diabetes mellitus, insulin dependent with hypoglycemia. Patient presented to the ED for hypoglycemia with glucose 45 mg/dL that improved with D10 fluids. He reported poor appetite prior to admission. Glucose 88-193. Appetite poor at times. A1c 6.4% Decrease insulin to NPH 70/30 10 units lunch x1, then 28 units in am tomorrow. NPH humulin 20 units at HS. Accu-checks AC/HS with hypoglycemia protocol. (2) Frequent falls: Code(s): R29.6 - Repeated falls Status: Acute Assessment and Plan: Consult PT/OT Care coordination for SNF rehab placement (3) Generalized weakness: Code(s): R53.1 - Weakness Status: Acute Assessment and Plan: secondary to covid19, Parkinson disease and hypoglycemia Management as above. (4) COVID-19: Code(s): U07.1 - COVID-19 Status: Acute Assessment and Plan: COVID19 positive in the Ed 09/12. He reports receiving vaccinations, with last one in July. Continue isolation. Supportive care. No supplemental oxygen needs at this time- hold remdesivir and dexamethasone. (5) Parkinsons disease: Code(s): G20 - Parkinson's disease Status: Chronic Assessment and Plan: Chronic, continue home medications. (6) Dementia: Code(s): F03.90 - Unspecified dementia, unspecified severity, without behavioral disturbance, psychotic disturbance, mood disturbance, and anxiety Status: Chronic Assessment and Plan: chronic, continue medications. (7) Chronic anemia: Code(s): D64.9 - Anemia, unspecified Status: Chronic Assessment and Plan: serum iron and saturation low. B12 and folate within normal limits. Add iron supplement Plan CODE STATUS: FULL CODE Disposition: SNF pending Time Spent With Patient Time with patient: 25 - 35 minutes Subjective Date/time seen: 09/13/22 08:55 Interval history: Patient is a 66-year-old male with history of stroke, Parkinson disease with dementia, hypertension, insulin-dependent type 2 diabetes mellitus, and other comorbidities who presented to the emergency department via EMS from home for evaluation of hypoglycemia. He was found to have a blood sugar of 45 that improved with D10. His family reported frequent falls in the past 2 months and he was incidentally found to be COVID19 positive. Patient was admitted for further monitoring of blood sugars and SNF placement. Patient found lying in bed. He reports his appetite is fair. Nursing staff reports he had more than 50% breakfast and did require assistance with eating. He reports mild FAJARDO. No vision changes, SOB, cough, diaphoresis, rigors, tremors, or chest pain. ? Review of Systems Review of Systems: All systems reviewed & are unremarkable except as noted in HPI and below Exam Narrative: General: Chronically ill-appearing male lying in bed. HEENT: Normocephalic, atraumatic. Slightly masked facies. Pupils are approximately 2 to 3 mm and are reactive. Extraocular motions are intact. Sclera anicteric. Moist mucous membranes. Neck: Supple. No midline vertebral tenderness. No obvious bruits. Respiratory: Lungs are clear to auscultation bilaterally. Cardiovascular: Regular rate and rhythm with S1-S2. No murmur, rub, or gallop. Gastrointestinal: Abdomen is soft, nontender, and nondistended with positive bowel sounds. No organomegaly. Skin: Warm and dry. Generalized pallor. Scattered bruising abrasions on the extremities. Extremities: No cyanosis, clubbing, or edema. Radial and pedal pulses intact. Neurological: Alert and oriented x3. Cranial nerves 2-12 are grossly intact. Speech is clear. No facial asymmetry. Faint tremors of the upper extremities. Bradykinesia. He is able to raise his arms and legs off the bed and lets them fall to g
--- NOTE | 2022-09-13 09:50 | PCSTNOTE ---
Please refer to the Bedside Swallow Evaluation in the EMR. Please note, silent aspiration cannot be ruled out at bedside.
[2022-09-13 11:35] LABS: Glucose Point of Care 172 mg/dl (65-105)
[2022-09-13] MEDS: INSULIN HUMAN ISOPHAN/REGULAR 70/30 (*BKC) 100 UNITS/ML 10 UNITS SUB-Q (13:00)
[2022-09-13 16:56] LABS: Glucose Point of Care 163 mg/dl (65-105)
[2022-09-13] MEDS: DONEPEZIL HCL 5 MG TABLET 10 MG PO (20:36)
[2022-09-13] MEDS: QUEtiapine FUMARATE 25 MG TABLET 50 MG PO (20:36)
[2022-09-13] MEDS: ATORVASTATIN 40 MG TABLET PO (20:37)
[2022-09-13] MEDS: MELATONIN 5 MG TABLET 10 MG PO (20:37)
[2022-09-13] MEDS: ACETAMINOPHEN 500 MG TABLET PO (20:44)
[2022-09-13 20:51] LABS: Glucose Point of Care 135 mg/dl (65-105)
[2022-09-13] MEDS: INSULIN HUMAN NPH (*BKC) 100 UNITS/ML 20 UNITS SUB-Q (21:33)
[2022-09-14] VITALS (7 sets, daily range): BP systolic 110–151; BP diastolic 69–92; PULSE 63–82; RESP 14–19; TEMP 35.9–36.7; O2SAT 96–100
[2022-09-14 07:07] LABS: Alanine Aminotransferase 7 U/L (6-50); Albumin Level 4.1 g/dL (3.5-5.1); Alkaline Phosphatase 105 U/L (38-126); Anion Gap 8 mmol/L (8-16); Aspartate Amino Transferase 16 U/L (17-59); Bilirubin,Total 0.5 mg/dL (0.2-1.3); Blood Urea Nitrogen 18 mg/dL (9-20); CRP 2.2 mg/dL (<1.0); Calcium 9.1 mg/dL (8.4-10.2); Carbon Dioxide 30 mmol/L (22-30); Chloride 100 mmol/L (98-107); Estimated CRCL calculation 108 ml/min; Estimated Glomerular Filt Rate > 60; Glucose 121 mg/dL (65-110); Potassium 4.4 mmol/L (3.4-5.0); Sodium 138 mmol/L (137-145)
[2022-09-14 07:51] LABS: Basophils Absolute Auto 0.1 K/mm3 (0.0-0.1); Basophils Percent Auto 0.8 % (0.2-1.2); Eosinophils Absolute Auto 0.3 K/mm3 (0-0.3); Eosinophils Percent Auto 3.4 % (0-4.4); Hematocrit 30.2 % (42.0-52.0); Hemoglobin 9.2 g/dL (14.0-18.0); Immature Granulocyte Absolute 0.02 K/mm3 (0.00-0.031); Immature Granulocyte Percent A 0.3 % (0-0.5); Lymphocytes Absolute Auto 1.79 K/mm3 (0.9-3.2); Lymphocytes Percent Auto 23.7 % (18.3-44.2); Mean Corpuscular HGB Conc 30.5 g/dl (32-36); Mean Corpuscular Hemoglobin 23.7 pg (26-34); Mean Corpuscular Volume 77.6 fl (80-100); Mean Platelet Volume 9.3 fl (7.4-10.4); Monocytes Absolute Auto 0.6 K/mm3 (0.1-0.6); Monocytes Percent Auto 8.1 % (2.6-8.5); Neutrophils Absolute Auto 4.8 K/mm3 (1.3-6.7); Neutrophils Percent Auto 63.7 % (45.5-73.1); Platelet Count Result 344 k/mm3 (150-375); Red Blood Count 3.89 M/mm3 (4.6-6.20); Red Cell Distribution Width 15.6 % (11.5-14.5); White Blood Count 7.6 K/mm3 (4.5-10.0)
[2022-09-14 08:29] LABS: Glucose Point of Care 121 mg/dl (65-105)
--- NOTE | 2022-09-14 08:53 | PM.IMPN ---
Progress Note: A&P Assessment and Plan (1) Hypoglycemia: Code(s): E16.2 - Hypoglycemia, unspecified Status: Acute Assessment and Plan: Chronic type 2 diabetes mellitus, insulin dependent with hypoglycemia. Patient presented to the ED for hypoglycemia with glucose 45 mg/dL that improved with D10 fluids. He reported poor appetite prior to admission. Glucose 88-193. Appetite poor at times. A1c 6.4% Decrease insulin to NPH 70/30 28 units in am. NPH humulin 20 units at HS. Accu-checks AC/HS with hypoglycemia protocol. (2) Frequent falls: Code(s): R29.6 - Repeated falls Status: Acute Assessment and Plan: Consult PT/OT Care coordination for SNF rehab placement (3) Generalized weakness: Code(s): R53.1 - Weakness Status: Acute Assessment and Plan: secondary to covid19, Parkinson disease and hypoglycemia Management as above. (4) COVID-19: Code(s): U07.1 - COVID-19 Status: Acute Assessment and Plan: COVID19 positive in the Ed 09/12. He reports receiving vaccinations, with last one in July. Continue isolation. Supportive care. No supplemental oxygen needs at this time- hold remdesivir and dexamethasone. (5) Parkinsons disease: Code(s): G20 - Parkinson's disease Status: Chronic Assessment and Plan: Chronic, continue home medications. (6) Dementia: Code(s): F03.90 - Unspecified dementia, unspecified severity, without behavioral disturbance, psychotic disturbance, mood disturbance, and anxiety Status: Chronic Assessment and Plan: chronic, continue medications. (7) Chronic anemia: Code(s): D64.9 - Anemia, unspecified Status: Chronic Assessment and Plan: serum iron and saturation low. B12 and folate within normal limits. Add iron supplement Plan CODE STATUS: FULL CODE Disposition: SNF pending Time Spent With Patient Time: 35 minutes time spent reviewing medical chart, lab work, imaging, patient assessment, and developing treatment plan. All patient and family questions answered to the best of my ability. Subjective Date/time seen: 09/14/22 08:53 Interval history: Patient is a 66-year-old male with history of stroke, Parkinson disease with dementia, hypertension, insulin-dependent type 2 diabetes mellitus, and other comorbidities who presented to the emergency department via EMS from home for evaluation of hypoglycemia. He was found to have a blood sugar of 45 that improved with D10. His family reported frequent falls in the past 2 months and he was incidentally found to be COVID19 positive. Patient was admitted for further monitoring of blood sugars and SNF placement. He reports persistent headache. No vision changes, unilateral extremity weakness, paresthesia, slurred speech, word finding, chest pain, SOB or cough. He has no new complaints. ? Review of Systems Review of Systems: All systems reviewed & are unremarkable except as noted in HPI and below Exam Narrative: General: Chronically ill-appearing male lying in bed. HEENT: Normocephalic, atraumatic. Slightly masked facies. sclera anicteric. Moist mucous membranes. Neck: Supple. Respiratory: Lungs are clear to auscultation bilaterally. RR regular and unlabored. Cardiovascular: Regular rate and rhythm with S1-S2. No murmur, rub, or gallop. Gastrointestinal: Abdomen is soft, nontender, and nondistended with positive bowel sounds. No organomegaly. Skin: Warm and dry. Generalized pallor. Scattered bruising abrasions on the extremities. Extremities: No cyanosis, clubbing, or edema. Radial and pedal pulses intact. Neurological: Alert and oriented x3. Cranial nerves 2-12 are grossly intact. Speech is clear. No facial asymmetry. Faint tremors of the upper extremities. Bradykinesia. He is able to raise his arms and legs off the bed and lets them fall to gravity within 5 seconds. He is generally weak without ob
[2022-09-14] MEDS: SERTRALINE HCL 50 MG TABLET 100 MG PO (10:25)
[2022-09-14] MEDS: FERROUS SULFATE 324 MG TABLET PO (10:26)
[2022-09-14] MEDS: CARBIDOPA/LEVODOPA 25/100 MG TABLET 2 TABLET PO ×5 (10:27→20:02)
[2022-09-14] MEDS: VITAMIN B COMPLEX CAPSULE 1 CAP PO (10:27)
[2022-09-14] MEDS: DOCUSATE SODIUM 100 MG CAPSULE PO ×2 (10:28→17:13)
[2022-09-14] MEDS: OPTI-GEN TAB 1 TABLET PO (10:28)
[2022-09-14] MEDS: amLODIPine BESYLATE 5 MG TABLET PO (10:28)
[2022-09-14] MEDS: polyethylene glycoL 3350 17 GM POWD.PACK PO (10:28)
[2022-09-14] MEDS: LOSARTAN POTASSIUM 25 MG TABLET PO (10:28)
[2022-09-14] MEDS: ENTACAPONE 200 MG TABLET PO ×2 (10:29→17:13)
[2022-09-14] MEDS: INSULIN HUMAN ISOPHAN/REGULAR 70/30 (*BKC) 100 UNITS/ML 28 UNITS SUB-Q (10:37)
[2022-09-14 12:16] LABS: Glucose Point of Care 161 mg/dl (65-105)
[2022-09-14] MEDS: GABAPENTIN 100 MG CAPSULE PO ×2 (14:17→17:13)
[2022-09-14] MEDS: ASPIRIN 81 MG ENTERIC TABLET PO (14:17)
[2022-09-14 17:23] LABS: Glucose Point of Care 73 mg/dl (65-105)
[2022-09-14] MEDS: QUEtiapine FUMARATE 25 MG TABLET 50 MG PO (20:02)
[2022-09-14] MEDS: DONEPEZIL HCL 5 MG TABLET 10 MG PO (20:02)
[2022-09-14] MEDS: MELATONIN 5 MG TABLET 10 MG PO (20:02)
[2022-09-14] MEDS: ATORVASTATIN 40 MG TABLET PO (20:03)
[2022-09-14 21:13] LABS: Glucose Point of Care 137 mg/dl (65-105)
[2022-09-15] VITALS: BP 129/67; PULSE 61; RESP 95; TEMP 36.6; O2SAT 18
[2022-09-15 04:00] VITALS: BP 151/66; PULSE 65; RESP 18; TEMP 36.3; O2SAT 99
[2022-09-15] MEDS: CARBIDOPA/LEVODOPA 25/100 MG TABLET 2 TABLET PO (07:57)
[2022-09-15] MEDS: VITAMIN B COMPLEX CAPSULE 1 CAP PO (07:58)
[2022-09-15] MEDS: OPTI-GEN TAB 1 TABLET PO (07:58)
[2022-09-15] MEDS: GABAPENTIN 100 MG CAPSULE PO (07:58)
[2022-09-15] MEDS: polyethylene glycoL 3350 17 GM POWD.PACK PO (07:58)
[2022-09-15] MEDS: ASPIRIN 81 MG ENTERIC TABLET PO (07:58)
[2022-09-15] MEDS: ENTACAPONE 200 MG TABLET PO (07:58)
[2022-09-15] MEDS: FERROUS SULFATE 324 MG TABLET PO (07:59)
[2022-09-15] MEDS: amLODIPine BESYLATE 5 MG TABLET PO (07:59)
[2022-09-15] MEDS: LOSARTAN POTASSIUM 25 MG TABLET PO (07:59)
[2022-09-15] MEDS: SERTRALINE HCL 50 MG TABLET 100 MG PO (07:59)
[2022-09-15] MEDS: DOCUSATE SODIUM 100 MG CAPSULE PO (07:59)
[2022-09-15 08:00] VITALS: BP 154/66; PULSE 64; RESP 12; TEMP 36.4; O2SAT 100
[2022-09-15 08:15] LABS: Glucose Point of Care 128 mg/dl (65-105)
--- NOTE | 2022-09-15 11:39 | PM.DS ---
DS: Admitting Diagnosis Discharge Date 09/15/2022 1139 Admitting Diagnosis Hypoglycemia Insulin dependent diabetes mellitus Frequent falls Generalized weakness COVID-19 Parkinsons disease Dementia Chronic anemia DS: Discharge Diagnosis Discharge Diagnosis (1) Hypoglycemia: Code(s): E16.2 - Hypoglycemia, unspecified Status: Acute (2) Frequent falls: Code(s): R29.6 - Repeated falls Status: Acute (3) Generalized weakness: Code(s): R53.1 - Weakness Status: Acute (4) COVID-19: Code(s): U07.1 - COVID-19 Status: Acute (5) Parkinsons disease: Code(s): G20 - Parkinson's disease Status: Chronic (6) Dementia: Code(s): F03.90 - Unspecified dementia, unspecified severity, without behavioral disturbance, psychotic disturbance, mood disturbance, and anxiety Status: Chronic (7) Chronic anemia: Code(s): D64.9 - Anemia, unspecified Status: Chronic DS: Summary Hospital Course Reason for hospitalization: Low blood sugar Hospital Course: Marcos Webb is a 66-year-old male with history of stroke, Parkinson disease with dementia, hypertension, insulin-dependent type 2 diabetes mellitus, and other comorbidities who presented to the emergency department via EMS from home for evaluation of hypoglycemia. He was found to have a blood sugar of 45 that improved with D10. His family reported frequent falls in the past 2 months and he was incidentally found to be COVID19 positive. Patient was admitted for further monitoring of blood sugars and SNF placement. (1) Hypoglycemia: Chronic type 2 diabetes mellitus, insulin dependent with hypoglycemia. Patient presented to the ED for hypoglycemia with glucose 45 mg/dL that improved with D10 fluids. He reported poor appetite prior to admission. Glucose 88-193. Appetite poor at times. A1c 6.4% Decreased insulin to NPH 70/30 25 units in am. NPH humulin 20 units at HS. Accu-checks AC/HS with hypoglycemia protocol. ? (2) Frequent falls: Consult PT/OT Care coordination for SNF rehab placement (3) Generalized weakness: secondary to covid19, Parkinson disease and hypoglycemia Management as above. (4) COVID-19: COVID19 positive in the Ed 09/12. He reports receiving vaccinations, with last one in July. Continue isolation. Supportive care. No supplemental oxygen needs at this time- no remdesivir and dexamethasone given. (5) Parkinsons disease: Chronic, continue home medications. (6) Dementia: chronic, continue medications. (7) Chronic anemia: serum iron and saturation low. B12 and folate within normal limits. Add iron supplement slow release tablet once daily Patient's blood sugars improved on reduced dose of insulin. He was a 2 max assist and SNF was recommended. He was discharged to SNF with stable vitals and on room air. Status at Discharge Cognitive/behavioral status at discharge: Alert, Oriented x 2. Functional status at discharge: uses cane/walker (2+ max assist) Overall status at discharge: patient is progressing back to baseline Time Spent with Patient Time attestation: Total time spent providing and/or coordinating discharge services: Time spent: Greater than 30 minutes Exam Narrative: General: Chronically ill-appearing male lying in bed. Temp 97.5F, HR 64, RR 12, BP 154/66, spO2 100% room air. HEENT: Normocephalic, atraumatic. Slightly masked facies. sclera anicteric. Moist mucous membranes. Neck: Supple. Respiratory: Lungs are clear to auscultation bilaterally. RR regular and unlabored. Cardiovascular: Regular rate and rhythm with S1-S2. No murmur, rub, or gallop. Gastrointestinal: Abdomen is soft, nontender, and nondistended with positive bowel sounds. No organomegaly. Skin: Warm and dry. Generalized pallor. Scattered bruising abrasions on the extremities. Extremities: No cyanosis, clubbing, or edema. Radial and pedal pulses intact. Neurological: Alert and oriented x2.
[2022-09-15 12:00] VITALS: BP 176/73; PULSE 72; RESP 16; TEMP 36.6; O2SAT 99
[2022-09-15 12:57] LABS: Glucose Point of Care 182 mg/dl (65-105)
== END 2022-09-15 15:05 | disposition swing bed (61) ==
LOC: ANHED 14:54 → ANH3MEDSUR 15:15
PROVIDERS: Nurse Practitioner Family; Physician Assistant; Admitting Provider Internal Medicine; Emergency Provider Emergency Medicine; PCP Family Medicine; Visit Provider Student in an Organized Health Care Education/Training Program
DX: E11.649 Type 2 diabetes mellitus with hypoglycemia without coma (principal); R29.6 Repeated falls; R53.1 Weakness; U07.1 COVID-19; G20 Parkinson's disease; F03.90 Unspecified dementia, unspecified severity, without behavioral disturbance, psychotic disturbance, mood disturbance, and anxiety; D64.9 Anemia, unspecified; R41.82 Altered mental status, unspecified; E78.5 Hyperlipidemia, unspecified; I10 Essential (primary) hypertension; E11.40 Type 2 diabetes mellitus with diabetic neuropathy, unspecified; M19.011 Primary osteoarthritis, right shoulder; Z86.73 Personal history of transient ischemic attack (TIA), and cerebral infarction without residual deficits; Z79.82 Long term (current) use of aspirin; Z79.1 Long term (current) use of non-steroidal anti-inflammatories (NSAID); Z79.4 Long term (current) use of insulin; Z79.84 Long term (current) use of oral hypoglycemic drugs; Z79.899 Other long term (current) drug therapy
CPT/HCPCS: 36415; 70450; 80048; 80053; 81001; 82607; 82728; 82746; 82948; 83036; 83540; 83550; 83735; 84443; 85025; 85027; 86140; 87636; 92610; 97110; 97161; 97165; 97530; 97535; 99285; A9270; G0378; J1815

== ENCOUNTER 2022-09-15 15:45 | Inpatient (IN) | payer MEDICARE, SELFPAY ==
[2022-09-15 15:45] VITALS: BP 169/88; PULSE 68; RESP 18; TEMP 36.8; O2SAT 97; BMI 27.7
--- NOTE | 2022-09-15 15:50 | ADMGEN ---
This patient, Marcos Webb, was admitted to 2nd Floor Room 207-1 as skilled swing bed due to weakness. Patient/family oriented to hospital policies and general routines including ID bracelet, bed and alarms, visiting hours, pain management, procedures, bathroom and other care routines, personal items, smoking policy, room service/diet, and visiting hours. Information on how to activate the Rapid Response Team has been discussed. Patient/Family are encouraged to report perceived risks to care and to ask questions if they do not understand what they are told or what they should do.
[2022-09-15 16:58] VITALS: BMI 27.7
[2022-09-15] MEDS: SERTRALINE HCL 50 MG TABLET PO (17:41)
[2022-09-15] MEDS: DONEPEZIL HCL 5 MG TABLET 10 MG PO (21:48)
[2022-09-15] MEDS: GABAPENTIN 100 MG CAPSULE PO (21:48)
[2022-09-15] MEDS: ATORVASTATIN 40 MG TABLET PO (21:48)
[2022-09-15] MEDS: DOCUSATE SODIUM 100 MG CAPSULE PO (21:48)
[2022-09-15] MEDS: QUEtiapine FUMARATE 25 MG TABLET 50 MG PO (21:48)
[2022-09-15] MEDS: MELATONIN 5 MG TABLET 10 MG PO (21:49)
[2022-09-15] MEDS: INSULIN HUMAN NPH (*BKC) 100 UNITS/ML 15 UNITS SUB-Q (21:50)
[2022-09-15] MEDS: CARBIDOPA/LEVODOPA 25/100 MG TABLET 2 TABLET PO (21:52)
[2022-09-15 22:07] LABS: Glucose Point of Care 199 mg/dl (65-105)
[2022-09-15 23:52] VITALS: BP 183/87; PULSE 74; RESP 20; TEMP 37.1; O2SAT 94
[2022-09-16] MEDS: GABAPENTIN 100 MG CAPSULE PO ×3 (05:58→20:31)
[2022-09-16] MEDS: CARBIDOPA/LEVODOPA 25/100 MG TABLET 2 TABLET PO ×6 (05:58→20:30)
[2022-09-16] MEDS: ACETAMINOPHEN 500 MG TABLET PO (06:25)
[2022-09-16 08:00] VITALS: BP 156/84; PULSE 60; RESP 16; TEMP 36.3; O2SAT 98
[2022-09-16 08:16] LABS: Glucose Point of Care 150 mg/dl (65-105)
[2022-09-16] MEDS: OPTI-GEN TAB 1 TABLET PO (08:53)
[2022-09-16] MEDS: polyethylene glycoL 3350 17 GM POWD.PACK PO (08:53)
[2022-09-16] MEDS: LOSARTAN POTASSIUM 25 MG TABLET PO (08:54)
[2022-09-16] MEDS: VITAMIN B COMPLEX CAPSULE 1 CAP PO (08:54)
[2022-09-16] MEDS: DOCUSATE SODIUM 100 MG CAPSULE PO ×2 (08:54→20:31)
[2022-09-16] MEDS: amLODIPine BESYLATE 5 MG TABLET 10 MG PO (08:54)
[2022-09-16] MEDS: ASPIRIN 81 MG ENTERIC TABLET PO (08:55)
[2022-09-16] MEDS: SERTRALINE HCL 50 MG TABLET 100 MG PO (08:55)
[2022-09-16] MEDS: FERROUS SULFATE 324 MG TABLET PO (08:56)
--- NOTE | 2022-09-16 11:20 | PM.IMHP ---
H&P: HPI History of Present Illness Date/Time: 09/16/22 11:20 Chief Complaint: rehab/ weakness Narrative: this is a 66-year-old male that presented to [place] urgent care with complaints of a low blood sugar. patient has a past medical history of anxiety, anemia, dementia, depression, hyperlipidemia, hypertension, type 2 diabetes, Parkinson's disease, AFib, peripheral neuropathy and urinary incontinence patient does have a history of frequent falls and he tested positive for COVID. Patient admitted in swing bed for rehabilitation due to decreased balance decreased mobility in severe limited function endurant and/or mobility. Review of Systems Review of Systems: All systems reviewed & are unremarkable except as noted in HPI and below [facility] Past Medical History Medical History (Updated 09/13/22 @ 17:24 by Kristina Rivas APRN) Anxiety Chronic anemia Dementia Depression Hyperlipidemia Hypertension Insulin dependent type 2 diabetes mellitus Parkinsons disease Paroxysmal atrial fibrillation Peripheral neuropathy Stargardts disease Urinary incontinence Surgical History Surgical History (Updated 09/12/22 @ 19:15 by Laura Carranza PA-C) History of appendectomy History of bilateral carpal tunnel release History of total right hip arthroplasty Status post deep brain stimulator placement Family History Family History Other Diabetes mellitus Family history of arthritis Family history of cardiovascular disease Family history of malignant neoplasm Hypertension Social History Social History (Updated 09/12/22 @ 19:14 by Laura Carranza PA-C) Social History: [employer]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 Code status: Full code. Smoking status: Never smoker Alcohol intake: never Substance use: never Substance use type: does not use Lack of Transportation: No Lack of Food: Never True Current Housing: I Have Housing Concerned About Future Housing: No Difficulty Paying Gas/Electric Bills: No Difficulty Paying for Meds: No Currently Unemployed: No Education: High School Diploma/GED Difficulty w/ Childcare or Family Care: No Additional living arrangements comments: Lives with spouse in [place]. They had 3 children, 1 passed from congenital heart disease. 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 Spiritual care concerns: No Meds Home Medications and Allergies Home Medications Medication Instructions Recorded Confirmed Type aspirin 81 mg tablet,delayed 81 mg PO DAILY 08/31/19 09/15/22 History release (Adult Low Dose Aspirin) docusate sodium 100 mg tablet 100 mg PO BID 08/31/19 09/15/22 History polyethylene glycol 3350 17 17 gm PO DAILY 08/31/19 09/15/22 History gram/dose oral powder (Miralax) acetaminophen 500 mg tablet 500 mg PO Q6H PRN Pain 10/31/20 09/15/22 History vitamin B complex (B 1 tablet PO DAILY 10/31/20 09/15/22 History Complex-Vitamin B12 tablet) entacapone 200 mg tablet (Comtan) 200 mg PO BID #60 tabs 11/12/20 09/15/22 Rx lancets 28 gauge (FreeStyle See Rx Instructions .Route 12/18/20 09/15/22 Rx Lancets) .COMPLEX #300 ea carbidopa 25 mg-levodopa 100 mg 2 tablet PO .Q3H WA 08/28/21 09/15/22 History tablet (Sinemet) gabapentin 100 mg capsule 100 mg PO TID 90 days #270 caps 08/28/21 09/15/22 Rx melatonin 10 mg tablet 10 mg PO QHS 04/16/22 09/15/22 History insulin syringe-needle U-100 1 mL #100 ea 04/26/22 09/16/22 Rx 31 gauge x 5/16 (BD Insulin Syringe Ultra-Fine) atorvastatin 40 mg tablet 40 mg PO HS 05/27/22 09/15/22 History metformin 1,000 mg tablet 1,000 mg PO BID 05/27/22 09/15/22 History quetiapine 25 mg tablet (Seroquel) 50 mg PO QHS 07/02/22 09/15/22 History amlodipine 10 mg tablet 5 mg PO DAILY 09/12/22 09/15/22 History donepezil 5 mg tablet 10 mg PO HS 09/12/22 09/15/22 History losartan 50 mg tablet 25 mg PO DAILY
[2022-09-16] MEDS: INSULIN HUMAN LISPRO (*BKC) 1,000 UNITS/10 ML VIAL SUB-Q ×2 (11:37→16:50)
[2022-09-16 11:39] LABS: Glucose Point of Care 222 mg/dl (65-105)
[2022-09-16 16:00] VITALS: BP 148/75; PULSE 68; RESP 16; TEMP 36.7; O2SAT 98
[2022-09-16 16:30] LABS: Glucose Point of Care 234 mg/dl (65-105)
[2022-09-16] MEDS: SERTRALINE HCL 50 MG TABLET PO (18:03)
[2022-09-16 19:41] VITALS: PULSE 68; RESP 16; O2SAT 98
[2022-09-16] MEDS: DONEPEZIL HCL 5 MG TABLET 10 MG PO (20:30)
[2022-09-16] MEDS: ATORVASTATIN 40 MG TABLET PO (20:31)
[2022-09-16] MEDS: QUEtiapine FUMARATE 25 MG TABLET 50 MG PO (20:31)
[2022-09-16] MEDS: MELATONIN 5 MG TABLET 10 MG PO (20:32)
[2022-09-16 20:39] LABS: Glucose Point of Care 211 mg/dl (65-105)
[2022-09-16] MEDS: LORazepam (*CRX) 0.5 MG TABLET PO (21:05)
[2022-09-16 23:58] VITALS: BP 159/73; PULSE 63; RESP 17; TEMP 36.7; O2SAT 95
[2022-09-17] MEDS: GABAPENTIN 100 MG CAPSULE PO ×3 (06:06→21:06)
[2022-09-17] MEDS: CARBIDOPA/LEVODOPA 25/100 MG TABLET 2 TABLET PO ×6 (06:06→21:08)
[2022-09-17 07:42] LABS: Glucose Point of Care 178 mg/dl (65-105)
[2022-09-17 08:00] VITALS: BP 151/71; PULSE 64; RESP 16; TEMP 36.3; O2SAT 97
[2022-09-17] MEDS: polyethylene glycoL 3350 17 GM POWD.PACK PO (08:31)
[2022-09-17] MEDS: OPTI-GEN TAB 1 TABLET PO (08:32)
[2022-09-17] MEDS: VITAMIN B COMPLEX CAPSULE 1 CAP PO (08:32)
[2022-09-17] MEDS: ACETAMINOPHEN 500 MG TABLET PO (08:33)
[2022-09-17] MEDS: amLODIPine BESYLATE 5 MG TABLET 10 MG PO (08:34)
[2022-09-17] MEDS: SERTRALINE HCL 50 MG TABLET 100 MG PO (08:34)
[2022-09-17] MEDS: ASPIRIN 81 MG ENTERIC TABLET PO (08:34)
[2022-09-17] MEDS: FERROUS SULFATE 324 MG TABLET PO (08:34)
[2022-09-17] MEDS: LOSARTAN POTASSIUM 25 MG TABLET PO (08:34)
[2022-09-17] MEDS: DOCUSATE SODIUM 100 MG CAPSULE PO ×2 (08:35→21:06)
[2022-09-17 12:16] LABS: Glucose Point of Care 199 mg/dl (65-105)
[2022-09-17 16:00] VITALS: BP 182/84; PULSE 70; RESP 18; TEMP 36.6; O2SAT 100
[2022-09-17 16:20] LABS: Glucose Point of Care 250 mg/dl (65-105)
[2022-09-17] MEDS: LORazepam (*CRX) 0.5 MG TABLET PO (17:41)
[2022-09-17] MEDS: SERTRALINE HCL 50 MG TABLET PO (17:44)
[2022-09-17 20:00] VITALS: PULSE 70; RESP 18; O2SAT 100
[2022-09-17] MEDS: MELATONIN 5 MG TABLET 10 MG PO (21:04)
[2022-09-17] MEDS: ATORVASTATIN 40 MG TABLET PO (21:06)
[2022-09-17] MEDS: DONEPEZIL HCL 5 MG TABLET 10 MG PO (21:06)
[2022-09-17] MEDS: QUEtiapine FUMARATE 25 MG TABLET 50 MG PO (21:07)
[2022-09-17 21:16] LABS: Glucose Point of Care 296 mg/dl (65-105)
[2022-09-18] VITALS: BP 150/74; PULSE 65; RESP 17; TEMP 36.9; O2SAT 98
[2022-09-18] MEDS: CARBIDOPA/LEVODOPA 25/100 MG TABLET 2 TABLET PO ×6 (06:18→20:46)
[2022-09-18] MEDS: GABAPENTIN 100 MG CAPSULE PO ×3 (06:18→21:11)
[2022-09-18 07:52] LABS: Glucose Point of Care 224 mg/dl (65-105)
[2022-09-18 07:53] VITALS: BP 109/60; PULSE 97; RESP 16; TEMP 36.4; O2SAT 94
[2022-09-18 07:59] VITALS: BP 129/81; PULSE 68; RESP 16; TEMP 36.4; O2SAT 96
[2022-09-18] MEDS: INSULIN HUMAN LISPRO (*BKC) 1,000 UNITS/10 ML VIAL SUB-Q ×2 (08:15→11:44)
[2022-09-18] MEDS: LOSARTAN POTASSIUM 25 MG TABLET PO (08:58)
[2022-09-18] MEDS: ASPIRIN 81 MG ENTERIC TABLET PO (08:58)
[2022-09-18] MEDS: amLODIPine BESYLATE 5 MG TABLET 10 MG PO (08:58)
[2022-09-18] MEDS: FERROUS SULFATE 324 MG TABLET PO (08:58)
[2022-09-18] MEDS: SERTRALINE HCL 50 MG TABLET 100 MG PO (08:58)
[2022-09-18] MEDS: VITAMIN B COMPLEX CAPSULE 1 CAP PO (08:58)
[2022-09-18] MEDS: LORazepam (*CRX) 0.5 MG TABLET PO (08:59)
[2022-09-18] MEDS: DOCUSATE SODIUM 100 MG CAPSULE PO ×2 (09:00→21:00)
[2022-09-18 11:36] LABS: Glucose Point of Care 241 mg/dl (65-105)
[2022-09-18 16:00] VITALS: BP 100/51; PULSE 73; RESP 18; TEMP 36.3; O2SAT 94
[2022-09-18] MEDS: SERTRALINE HCL 50 MG TABLET PO (17:53)
[2022-09-18 20:00] VITALS: PULSE 73; RESP 18; O2SAT 94
[2022-09-18] MEDS: ATORVASTATIN 40 MG TABLET PO (20:33)
[2022-09-18] MEDS: DONEPEZIL HCL 5 MG TABLET 10 MG PO (20:35)
[2022-09-18] MEDS: MELATONIN 5 MG TABLET 10 MG PO (20:42)
[2022-09-18] MEDS: QUEtiapine FUMARATE 25 MG TABLET 50 MG PO (20:44)
[2022-09-18 21:00] LABS: Glucose Point of Care 189 mg/dl (65-105)
[2022-09-19] VITALS: BP 147/76; PULSE 63; RESP 18; TEMP 36.5; O2SAT 96
[2022-09-19] MEDS: GABAPENTIN 100 MG CAPSULE PO ×3 (05:09→20:57)
[2022-09-19] MEDS: CARBIDOPA/LEVODOPA 25/100 MG TABLET 2 TABLET PO ×6 (05:10→20:48)
[2022-09-19 07:42] LABS: Glucose Point of Care 224 mg/dl (65-105)
[2022-09-19 08:00] VITALS: BP 183/85; PULSE 62; RESP 16; TEMP 36.5; O2SAT 97
[2022-09-19] MEDS: FERROUS SULFATE 324 MG TABLET PO (08:10)
[2022-09-19] MEDS: INSULIN HUMAN LISPRO (*BKC) 1,000 UNITS/10 ML VIAL SUB-Q ×3 (08:18→17:05)
[2022-09-19] MEDS: VITAMIN B COMPLEX CAPSULE 1 CAP PO (09:00)
[2022-09-19] MEDS: SERTRALINE HCL 50 MG TABLET 100 MG PO (09:00)
[2022-09-19] MEDS: ASPIRIN 81 MG ENTERIC TABLET PO (09:00)
[2022-09-19] MEDS: amLODIPine BESYLATE 5 MG TABLET 10 MG PO (09:00)
[2022-09-19] MEDS: OPTI-GEN TAB 1 TABLET PO (09:01)
[2022-09-19] MEDS: LOSARTAN POTASSIUM 25 MG TABLET PO (09:01)
[2022-09-19 11:47] LABS: Glucose Point of Care 257 mg/dl (65-105)
[2022-09-19 16:00] VITALS: BP 153/76; PULSE 103; RESP 17; TEMP 36.8; O2SAT 94
[2022-09-19 17:08] LABS: Glucose Point of Care 250 mg/dl (65-105)
[2022-09-19] MEDS: SERTRALINE HCL 50 MG TABLET PO (18:11)
[2022-09-19 20:00] VITALS: PULSE 103; RESP 17; O2SAT 94
[2022-09-19] MEDS: DOCUSATE SODIUM 100 MG CAPSULE PO (20:48)
[2022-09-19] MEDS: ATORVASTATIN 40 MG TABLET PO (20:48)
[2022-09-19] MEDS: QUEtiapine FUMARATE 25 MG TABLET 50 MG PO (20:48)
[2022-09-19] MEDS: MELATONIN 5 MG TABLET 10 MG PO (20:48)
[2022-09-19] MEDS: DONEPEZIL HCL 5 MG TABLET 10 MG PO (20:48)
[2022-09-19] MEDS: LORazepam (*CRX) 0.5 MG TABLET PO (20:49)
[2022-09-19 20:57] LABS: Glucose Point of Care 207 mg/dl (65-105)
[2022-09-20] VITALS: BP 160/76; PULSE 69; RESP 18; TEMP 37.1; O2SAT 95
[2022-09-20] MEDS: CARBIDOPA/LEVODOPA 25/100 MG TABLET 2 TABLET PO ×6 (07:18→22:21)
[2022-09-20] MEDS: GABAPENTIN 100 MG CAPSULE PO ×3 (07:18→22:21)
[2022-09-20 07:48] LABS: Glucose Point of Care 183 mg/dl (65-105)
[2022-09-20 08:00] VITALS: BP 175/84; PULSE 67; RESP 14; TEMP 36.6; O2SAT 97
[2022-09-20] MEDS: ASPIRIN 81 MG ENTERIC TABLET PO (08:22)
[2022-09-20] MEDS: OPTI-GEN TAB 1 TABLET PO (08:22)
[2022-09-20] MEDS: VITAMIN B COMPLEX CAPSULE 1 CAP PO (08:22)
[2022-09-20] MEDS: LORazepam (*CRX) 0.5 MG TABLET PO ×3 (08:23→22:20)
[2022-09-20] MEDS: amLODIPine BESYLATE 5 MG TABLET 10 MG PO (08:23)
[2022-09-20] MEDS: SERTRALINE HCL 50 MG TABLET 100 MG PO (08:23)
[2022-09-20] MEDS: LOSARTAN POTASSIUM 25 MG TABLET PO (08:23)
[2022-09-20] MEDS: FERROUS SULFATE 324 MG TABLET PO (08:24)
[2022-09-20 11:53] LABS: Glucose Point of Care 221 mg/dl (65-105)
[2022-09-20] MEDS: INSULIN HUMAN LISPRO (*BKC) 1,000 UNITS/10 ML VIAL SUB-Q (12:20)
[2022-09-20 15:45] VITALS: BP 176/80; PULSE 67; RESP 16; TEMP 36.8; O2SAT 96
--- NOTE | 2022-09-20 15:54 | PCOTNOTE ---
The patient did not receive OT this afternoon this date due to fatigue as a side effect from medications. The patient is unable to participate in skilled services.
[2022-09-20 17:01] LABS: Glucose Point of Care 206 mg/dl (65-105)
[2022-09-20] MEDS: SERTRALINE HCL 50 MG TABLET PO (17:58)
[2022-09-20] MEDS: DOCUSATE SODIUM 100 MG CAPSULE PO (22:19)
[2022-09-20] MEDS: DONEPEZIL HCL 5 MG TABLET 10 MG PO (22:20)
[2022-09-20] MEDS: QUEtiapine FUMARATE 25 MG TABLET 50 MG PO (22:20)
[2022-09-20] MEDS: ATORVASTATIN 40 MG TABLET PO (22:20)
[2022-09-20] MEDS: MELATONIN 5 MG TABLET 10 MG PO (22:20)
[2022-09-20 22:43] LABS: Glucose Point of Care 216 mg/dl (65-105)
[2022-09-21] VITALS: BP 122/67; PULSE 67; RESP 18; TEMP 36.5; O2SAT 98
[2022-09-21] MEDS: CARBIDOPA/LEVODOPA 25/100 MG TABLET 2 TABLET PO ×6 (06:09→21:50)
[2022-09-21] MEDS: GABAPENTIN 100 MG CAPSULE PO ×3 (06:10→21:51)
[2022-09-21 07:31] VITALS: BP 148/71; PULSE 62; RESP 14; TEMP 36.5; O2SAT 97
[2022-09-21 07:35] LABS: Glucose Point of Care 159 mg/dl (65-105)
[2022-09-21 07:48] VITALS: BP 148/71; PULSE 62; RESP 14; TEMP 36.4; O2SAT 97
[2022-09-21] MEDS: OPTI-GEN TAB 1 TABLET PO (08:57)
[2022-09-21] MEDS: VITAMIN B COMPLEX CAPSULE 1 CAP PO (08:58)
[2022-09-21] MEDS: SERTRALINE HCL 50 MG TABLET 100 MG PO (08:58)
[2022-09-21] MEDS: ASPIRIN 81 MG ENTERIC TABLET PO (08:58)
[2022-09-21] MEDS: amLODIPine BESYLATE 5 MG TABLET 10 MG PO (08:59)
[2022-09-21] MEDS: FERROUS SULFATE 324 MG TABLET PO (08:59)
[2022-09-21] MEDS: LOSARTAN POTASSIUM 25 MG TABLET PO (09:00)
[2022-09-21] MEDS: ACETAMINOPHEN 500 MG TABLET PO (09:01)
[2022-09-21 11:39] LABS: Glucose Point of Care 144 mg/dl (65-105)
[2022-09-21 16:00] VITALS: BP 140/68; PULSE 72; RESP 16; TEMP 36.6; O2SAT 99
[2022-09-21 17:06] LABS: Glucose Point of Care 187 mg/dl (65-105)
[2022-09-21] MEDS: SERTRALINE HCL 50 MG TABLET PO (17:09)
[2022-09-21] MEDS: LORazepam (*CRX) 0.5 MG TABLET PO (17:24)
[2022-09-21 20:00] VITALS: PULSE 72; RESP 16; O2SAT 99
[2022-09-21] MEDS: MELATONIN 5 MG TABLET 10 MG PO (20:09)
[2022-09-21] MEDS: ATORVASTATIN 40 MG TABLET PO (20:09)
[2022-09-21] MEDS: DONEPEZIL HCL 5 MG TABLET 10 MG PO (20:09)
[2022-09-21] MEDS: QUEtiapine FUMARATE 25 MG TABLET 50 MG PO (20:10)
[2022-09-22] VITALS: BP 154/77; PULSE 66; RESP 18; TEMP 36.3; O2SAT 95
[2022-09-22] MEDS: LORazepam (*CRX) 0.5 MG TABLET PO ×2 (00:17→20:25)
[2022-09-22] MEDS: CARBIDOPA/LEVODOPA 25/100 MG TABLET 2 TABLET PO ×6 (05:33→20:24)
[2022-09-22] MEDS: GABAPENTIN 100 MG CAPSULE PO ×3 (05:33→21:02)
[2022-09-22 07:23] LABS: Glucose Point of Care 142 mg/dl (65-105)
[2022-09-22] MEDS: ACETAMINOPHEN 500 MG TABLET PO ×2 (07:37→20:26)
[2022-09-22] MEDS: polyethylene glycoL 3350 17 GM POWD.PACK PO (07:38)
[2022-09-22] MEDS: FERROUS SULFATE 324 MG TABLET PO (07:39)
[2022-09-22 07:45] VITALS: BP 178/83; PULSE 62; RESP 20; TEMP 36.6; O2SAT 97
[2022-09-22] MEDS: amLODIPine BESYLATE 5 MG TABLET 10 MG PO (08:41)
[2022-09-22] MEDS: SERTRALINE HCL 50 MG TABLET 100 MG PO (08:41)
[2022-09-22] MEDS: OPTI-GEN TAB 1 TABLET PO (08:42)
[2022-09-22] MEDS: LOSARTAN POTASSIUM 25 MG TABLET PO (08:42)
[2022-09-22] MEDS: VITAMIN B COMPLEX CAPSULE 1 CAP PO (08:42)
[2022-09-22] MEDS: DOCUSATE SODIUM 100 MG CAPSULE PO (08:42)
[2022-09-22] MEDS: ASPIRIN 81 MG ENTERIC TABLET PO (08:42)
--- NOTE | 2022-09-22 10:31 | PC.NURSE ---
Assisted patient back to bed. Patient stood but unable to follow directions. would not move feet. Had to be lifted to bed before he fell to the ground.
[2022-09-22] MEDS: traMADol HCL (*CRX) 25 MG TABLET PO (11:08)
[2022-09-22 11:30] LABS: Glucose Point of Care 161 mg/dl (65-105)
[2022-09-22 16:00] VITALS: BP 150/79; PULSE 69; RESP 16; TEMP 36.8; O2SAT 97
[2022-09-22] MEDS: SERTRALINE HCL 50 MG TABLET PO (18:35)
[2022-09-22 20:00] VITALS: PULSE 69; RESP 16; O2SAT 97
[2022-09-22] MEDS: DONEPEZIL HCL 5 MG TABLET 10 MG PO (20:23)
[2022-09-22] MEDS: QUEtiapine FUMARATE 25 MG TABLET 50 MG PO (20:24)
[2022-09-22] MEDS: ATORVASTATIN 40 MG TABLET PO (20:24)
[2022-09-22] MEDS: MELATONIN 5 MG TABLET 10 MG PO (20:25)
[2022-09-23] VITALS: BP 157/81; PULSE 66; RESP 18; TEMP 36.4; O2SAT 96
[2022-09-23] MEDS: CARBIDOPA/LEVODOPA 25/100 MG TABLET 2 TABLET PO ×7 (05:20→23:38)
[2022-09-23] MEDS: GABAPENTIN 100 MG CAPSULE PO ×3 (05:20→21:18)
[2022-09-23 07:35] VITALS: BP 156/77; PULSE 64; RESP 18; TEMP 37; O2SAT 97
[2022-09-23 08:28] LABS: Glucose Point of Care 135 mg/dl (65-105)
[2022-09-23] MEDS: VITAMIN B COMPLEX CAPSULE 1 CAP PO (10:08)
[2022-09-23] MEDS: SERTRALINE HCL 50 MG TABLET 100 MG PO (10:08)
[2022-09-23] MEDS: LOSARTAN POTASSIUM 25 MG TABLET PO (10:09)
[2022-09-23] MEDS: amLODIPine BESYLATE 5 MG TABLET 10 MG PO (10:09)
[2022-09-23] MEDS: ASPIRIN 81 MG ENTERIC TABLET PO (10:09)
[2022-09-23] MEDS: OPTI-GEN TAB 1 TABLET PO (10:09)
[2022-09-23] MEDS: FERROUS SULFATE 324 MG TABLET PO (10:09)
[2022-09-23 11:51] LABS: Glucose Point of Care 187 mg/dl (65-105)
--- NOTE | 2022-09-23 14:20 | PM.EVENT ---
Event Note Event Note Event Note: Discussion with about patient progress and him taking his medication and plan when he is discharged. Family is a little overwhelmed and frustrated and may have some expectation that is not within range at this time but we will work hard to assist at reaching his goals. Today is the first day they are able to see patient since [facility]
[2022-09-23 16:35] VITALS: BP 112/70; PULSE 69; RESP 18; TEMP 36.6; O2SAT 96
[2022-09-23 17:07] LABS: Glucose Point of Care 198 mg/dl (65-105)
[2022-09-23] MEDS: SERTRALINE HCL 50 MG TABLET PO (17:46)
[2022-09-23] MEDS: MELATONIN 5 MG TABLET 10 MG PO (21:18)
[2022-09-23] MEDS: ATORVASTATIN 40 MG TABLET PO (21:18)
[2022-09-23] MEDS: QUEtiapine FUMARATE 25 MG TABLET 50 MG PO (21:18)
[2022-09-23] MEDS: LORazepam (*CRX) 0.5 MG TABLET PO (21:19)
[2022-09-23] MEDS: DOCUSATE SODIUM 100 MG CAPSULE PO (21:19)
[2022-09-23] MEDS: DONEPEZIL HCL 5 MG TABLET 10 MG PO (21:19)
[2022-09-23 21:32] LABS: Glucose Point of Care 205 mg/dl (65-105)
[2022-09-24] VITALS: BP 120/66; PULSE 63; RESP 18; TEMP 36.7; O2SAT 97
[2022-09-24] MEDS: GABAPENTIN 100 MG CAPSULE PO ×3 (05:59→21:29)
[2022-09-24 07:40] VITALS: BP 122/70; PULSE 74; RESP 18; TEMP 36.6; O2SAT 97
[2022-09-24 07:58] LABS: Glucose Point of Care 138 mg/dl (65-105)
[2022-09-24] MEDS: SERTRALINE HCL 50 MG TABLET 100 MG PO (09:13)
[2022-09-24] MEDS: OPTI-GEN TAB 1 TABLET PO (09:13)
[2022-09-24] MEDS: CARBIDOPA/LEVODOPA 25/100 MG TABLET 2 TABLET PO ×6 (09:13→22:04)
[2022-09-24] MEDS: VITAMIN B COMPLEX CAPSULE 1 CAP PO (09:13)
[2022-09-24] MEDS: ASPIRIN 81 MG ENTERIC TABLET PO (09:13)
[2022-09-24] MEDS: amLODIPine BESYLATE 5 MG TABLET 10 MG PO (09:13)
[2022-09-24] MEDS: DOCUSATE SODIUM 100 MG CAPSULE PO (09:13)
[2022-09-24] MEDS: FERROUS SULFATE 324 MG TABLET PO (09:14)
[2022-09-24] MEDS: LOSARTAN POTASSIUM 25 MG TABLET PO (09:14)
[2022-09-24 11:34] LABS: Glucose Point of Care 184 mg/dl (65-105)
--- NOTE | 2022-09-24 11:55 | PM.IMPN ---
Progress Note: A&P Assessment and Plan (1) COVID-19: Code(s): U07.1 - COVID-19 Status: Acute Assessment and Plan: asymptomatic continue supportive care Out of isolation (2) Chronic anemia: Code(s): D64.9 - Anemia, unspecified Status: Chronic Assessment and Plan: continue our supplement serum iron and saturation low. B12 and folate within normal limits. no active bleeding noted (3) Dementia: Code(s): F03.90 - Unspecified dementia, unspecified severity, without behavioral disturbance, psychotic disturbance, mood disturbance, and anxiety Status: Chronic Assessment and Plan: continue home medication (4) Generalized weakness: Code(s): R53.1 - Weakness Status: Acute Assessment and Plan: ? Exhibit tolerance during physical activity as evidenced by a normal fluctuation of vital signs during physical activity. ? Patient will be ability to perform required activities of daily living. ? Provide appropriate nutrition for healing and strength. ? Use appropriate to prevent falls. ? Continue physical therapy/occupational therapy. 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) use of insulin Status: Acute Assessment and Plan: stable continue sliding scale hypoglycemic protocol Accu-Cheks will adjust medication as needed continue diabetic diet (8) Parkinson's disease dementia: Qualifiers: Dementia behavioral or psychological symptom: unspecified whether behavioral, psychotic, or mood disturbance or anxiety Dementia severity: unspecified severity Qualified Code(s): G20 - Parkinson's disease; F02.80 - Dementia in other diseases classified elsewhere, unspecified severity, without behavioral disturbance, psychotic disturbance, mood disturbance, and anxiety Code(s): G20 - Parkinson's disease; F02.80 - Dementia in other diseases classified elsewhere, unspecified severity, without behavioral disturbance, psychotic disturbance, mood disturbance, and anxiety Status: Chronic Assessment and Plan: continue home medical (9) Frequent falls: Code(s): R29.6 - Repeated falls Status: Acute Assessment and Plan: continue home medical (10) Urinary incontinence: Code(s): R32 - Unspecified urinary incontinence Status: Acute (11) Neuropathy: Code(s): G62.9 - Polyneuropathy, unspecified Status: Chronic (12) Hyperlipidemia: Code(s): E78.5 - Hyperlipidemia, unspecified Status: Acute Assessment and Plan: continue home medical (13) Hypertension: Code(s): I10 - Essential (primary) hypertension Status: Acute Assessment and Plan: stable continue home medical Subjective Date/time seen: 09/24/22 11:55 Interval history: Patient is not always able to feed self and he is at time does not make his needs know. Patient continues to need therapy and needs assistance with all activities. We wll continue to work with patient until discharge. Patient has remained a febrile and is eating and drinking without difficulties. FOR HOSPITAL BED WITH electric control and mattress : PT REQUIRES FREQUENT TURNS NOT FEASIBLE IN REGULAR BED. THE PATIENT REQUIRES ELECTRIC CONTROLS DUE TO Risk of Aspiration . DIAGNOSIS: Parkinson, Weakness Exam Narrative: GENERAL: This is a Pale well-developed patient, in no apparent distress. HEAD: normocephalic, atraumatic. EYES: PERRL. Sclera clear/white. Vision is grossly intact. patient is legally blind EARS: E
[2022-09-24 15:40] VITALS: BP 100/62; PULSE 68; RESP 18; TEMP 36.3; O2SAT 97
[2022-09-24 17:22] LABS: Glucose Point of Care 188 mg/dl (65-105)
[2022-09-24] MEDS: SERTRALINE HCL 50 MG TABLET PO (17:22)
[2022-09-24 20:47] LABS: Glucose Point of Care 227 mg/dl (65-105)
[2022-09-24] MEDS: QUEtiapine FUMARATE 25 MG TABLET 50 MG PO (20:47)
[2022-09-24] MEDS: ATORVASTATIN 40 MG TABLET PO (20:47)
[2022-09-24] MEDS: MELATONIN 5 MG TABLET 10 MG PO (20:48)
[2022-09-24] MEDS: DONEPEZIL HCL 5 MG TABLET 10 MG PO (20:48)
[2022-09-24 23:02] VITALS: BP 106/69; PULSE 107; RESP 15; TEMP 36.9; O2SAT 97
[2022-09-25] MEDS: GABAPENTIN 100 MG CAPSULE PO ×3 (06:24→21:08)
[2022-09-25 07:55] LABS: Glucose Point of Care 136 mg/dl (65-105)
[2022-09-25 08:00] VITALS: BP 109/70; PULSE 90; RESP 16; TEMP 36.7; O2SAT 99
[2022-09-25] MEDS: CARBIDOPA/LEVODOPA 25/100 MG TABLET 2 TABLET PO ×6 (08:10→22:28)
[2022-09-25] MEDS: FERROUS SULFATE 324 MG TABLET PO (08:20)
[2022-09-25] MEDS: amLODIPine BESYLATE 5 MG TABLET 10 MG PO (09:10)
[2022-09-25] MEDS: VITAMIN B COMPLEX CAPSULE 1 CAP PO (09:32)
[2022-09-25] MEDS: SERTRALINE HCL 50 MG TABLET 100 MG PO (09:33)
[2022-09-25] MEDS: LOSARTAN POTASSIUM 25 MG TABLET PO (09:34)
[2022-09-25] MEDS: ASPIRIN 81 MG ENTERIC TABLET PO (09:35)
[2022-09-25] MEDS: OPTI-GEN TAB 1 TABLET PO (09:35)
[2022-09-25 11:47] LABS: Glucose Point of Care 163 mg/dl (65-105)
[2022-09-25 16:00] VITALS: BP 125/76; PULSE 104; RESP 20; TEMP 36.4; O2SAT 98
[2022-09-25 16:31] LABS: Glucose Point of Care 174 mg/dl (65-105)
[2022-09-25] MEDS: SERTRALINE HCL 50 MG TABLET PO (17:07)
--- NOTE | 2022-09-25 20:11 | PC.NURSE ---
Pt set off chair alarm, pt attempting to slide out of recliner with foot rest up upon entering room, pt gotten up with andi plus, while moving him to bed pt let go of andi plus bars and let knees fold underneath him, pt held up by sling of andi plus, pt refused to assist in standing, 3 nurses needed to get pt to a semi-standing position and pulled onto edge of bed using x2 gait belts, pt has no complaints of pain at this time, no distress noted, diaper changed and pt repositioned in bed, kathleen salas notified by charge nurse Shannan
[2022-09-25] MEDS: DOCUSATE SODIUM 100 MG CAPSULE PO (20:55)
[2022-09-25] MEDS: DONEPEZIL HCL 5 MG TABLET 10 MG PO (20:55)
[2022-09-25] MEDS: ATORVASTATIN 40 MG TABLET PO (20:56)
[2022-09-25] MEDS: QUEtiapine FUMARATE 25 MG TABLET 50 MG PO (20:56)
[2022-09-25] MEDS: MELATONIN 5 MG TABLET 10 MG PO (20:57)
[2022-09-25 21:04] LABS: Glucose Point of Care 236 mg/dl (65-105)
[2022-09-26] VITALS: BP 114/76; PULSE 80; RESP 16; TEMP 36.2; O2SAT 98
[2022-09-26] MEDS: GABAPENTIN 100 MG CAPSULE PO ×3 (05:11→22:03)
[2022-09-26 05:12] LABS: Hematocrit 26.8 % (37.0-46.0); Hemoglobin 8.3 g/dL (12.4-15.3); Mean Corpuscular Hemoglobin 24.5 pg (27.0-31.0); Mean Corpuscular Volume 79.1 fL (78.0-102.0); Mean Platelet Volume 9.9 fl (8.7-11.0); Platelet Count Result 290 K/mm3 (150-420); Red Blood Count 3.39 M/mm3 (4.70-6.10); Red Cell Distribution Width 15.8 % (11.6-14.4); White Blood Count 8.3 K/mm3 (4.8-10.8)
[2022-09-26 05:28] LABS: Alanine Aminotransferase 7 U/L (16-63); Albumin Level 2.7 g/dL (3.4-5.0); Alkaline Phosphatase 83 U/L (46-116); Anion Gap 9 mmol/L (8-16); Aspartate Amino Transferase 12 U/L (15-37); Bilirubin,Total 0.4 mg/dL (0.00-1.00); Blood Urea Nitrogen 45 mg/dL (7-18); Calcium 8.6 mg/dL (8.5-10.1); Carbon Dioxide 29 mmol/L (21-32); Chloride 100 mmol/L (98-108); Estimated CRCL calculation 60 ml/min; Estimated Glomerular Filt Rate 56; Glucose 165 mg/dL (70-99); Osmolality Calculated 301 mOsm/kg (285-295); Potassium 4.1 mmol/L (3.5-5.1); Sodium 138 mmol/L (136-145); Total Protein 6.8 g/dL (6.4-8.2)
[2022-09-26 07:46] LABS: Glucose Point of Care 153 mg/dl (65-105)
[2022-09-26 07:49] VITALS: BP 168/83; PULSE 69; RESP 18; TEMP 36.3; O2SAT 97
[2022-09-26] MEDS: SERTRALINE HCL 50 MG TABLET 100 MG PO (08:39)
[2022-09-26] MEDS: VITAMIN B COMPLEX CAPSULE 1 CAP PO (08:40)
[2022-09-26] MEDS: LOSARTAN POTASSIUM 25 MG TABLET PO (08:40)
[2022-09-26] MEDS: FERROUS SULFATE 324 MG TABLET PO (08:40)
[2022-09-26] MEDS: OPTI-GEN TAB 1 TABLET PO (08:40)
[2022-09-26] MEDS: DOCUSATE SODIUM 100 MG CAPSULE PO (08:40)
[2022-09-26] MEDS: ASPIRIN 81 MG ENTERIC TABLET PO (08:41)
[2022-09-26] MEDS: amLODIPine BESYLATE 5 MG TABLET 10 MG PO (08:41)
[2022-09-26] MEDS: CARBIDOPA/LEVODOPA 25/100 MG TABLET 2 TABLET PO ×6 (08:43→22:03)
[2022-09-26 11:56] LABS: Glucose Point of Care 195 mg/dl (65-105)
[2022-09-26 16:00] VITALS: BP 116/56; PULSE 75; RESP 16; TEMP 36.4; O2SAT 99
[2022-09-26] MEDS: INSULIN HUMAN LISPRO (*BKC) 1,000 UNITS/10 ML VIAL SUB-Q (16:54)
[2022-09-26 16:58] LABS: Glucose Point of Care 322 mg/dl (65-105)
[2022-09-26] MEDS: SERTRALINE HCL 50 MG TABLET PO (17:01)
[2022-09-26 20:00] VITALS: PULSE 75; RESP 16; O2SAT 99
[2022-09-26] MEDS: MELATONIN 5 MG TABLET 10 MG PO (20:14)
[2022-09-26] MEDS: DONEPEZIL HCL 5 MG TABLET 10 MG PO (20:14)
[2022-09-26] MEDS: ATORVASTATIN 40 MG TABLET PO (20:14)
[2022-09-26] MEDS: QUEtiapine FUMARATE 25 MG TABLET 50 MG PO (20:15)
[2022-09-26] MEDS: ACETAMINOPHEN 500 MG TABLET PO (20:15)
[2022-09-27] VITALS: BP 92/77; PULSE 87; RESP 18; TEMP 36.1; O2SAT 97
[2022-09-27] MEDS: GABAPENTIN 100 MG CAPSULE PO ×2 (05:52→17:01)
--- NOTE | 2022-09-27 06:04 | PC.NURSE ---
Patient slept well from 8 pm to midnight, and then was awake for about an hour. During that time, patient was talking to himself, and did not appear to be agitated. Patient went back to sleep about 1 am and slept until about 6 am. He is now watching TV. Patient handed the remote to the nurse to have her change the channel to something he liked. Patient remains calm.
[2022-09-27 07:35] LABS: Glucose Point of Care 166 mg/dl (65-105)
[2022-09-27 07:36] VITALS: BP 138/88; PULSE 92; RESP 18; TEMP 36.4; O2SAT 99
[2022-09-27] MEDS: ACETAMINOPHEN 500 MG TABLET PO ×3 (08:13→22:31)
[2022-09-27] MEDS: amLODIPine BESYLATE 5 MG TABLET 10 MG PO (08:14)
[2022-09-27] MEDS: SERTRALINE HCL 50 MG TABLET 100 MG PO (08:14)
[2022-09-27] MEDS: OPTI-GEN TAB 1 TABLET PO (08:15)
[2022-09-27] MEDS: ASPIRIN 81 MG ENTERIC TABLET PO (08:15)
[2022-09-27] MEDS: FERROUS SULFATE 324 MG TABLET PO (08:15)
[2022-09-27] MEDS: VITAMIN B COMPLEX CAPSULE 1 CAP PO (08:16)
[2022-09-27] MEDS: DOCUSATE SODIUM 100 MG CAPSULE PO ×2 (08:16→20:51)
[2022-09-27] MEDS: polyethylene glycoL 3350 17 GM POWD.PACK PO (08:17)
[2022-09-27] MEDS: CARBIDOPA/LEVODOPA 25/100 MG TABLET 2 TABLET PO ×6 (08:34→22:27)
[2022-09-27] MEDS: LOSARTAN POTASSIUM 25 MG TABLET PO (08:35)
--- NOTE | 2022-09-27 10:25 | PM.DS ---
DS: Discharge Diagnosis Discharge Diagnosis (1) COVID-19: Code(s): U07.1 - COVID-19 Status: Acute Assessment and Plan: asymptomatic continue supportive care Out of isolation (2) Chronic anemia: Code(s): D64.9 - Anemia, unspecified Status: Chronic Assessment and Plan: continue our supplement serum iron and saturation low. B12 and folate within normal limits. no active bleeding noted (3) Dementia: Code(s): F03.90 - Unspecified dementia, unspecified severity, without behavioral disturbance, psychotic disturbance, mood disturbance, and anxiety Status: Chronic Assessment and Plan: continue home medication (4) Generalized weakness: Code(s): R53.1 - Weakness Status: Acute Assessment and Plan: ? Exhibit tolerance during physical activity as evidenced by a normal fluctuation of vital signs during physical activity. ? Patient will be ability to perform required activities of daily living. ? Provide appropriate nutrition for healing and strength. ? Use appropriate to prevent falls. ? Continue physical therapy/occupational therapy. (5) Depression: Code(s): F32.A - Depression, unspecified Status: Acute Assessment and Plan: continue home medication (6) Anxiety: Code(s): F41.9 - Anxiety disorder, unspecified Status: Acute Assessment and Plan: continue home medical PRn (7) Insulin dependent type 2 diabetes mellitus: Code(s): E11.9 - Type 2 diabetes mellitus without complications; Z79.4 - halfway (current) use of insulin Status: Acute Assessment and Plan: stable continue sliding scale hypoglycemic protocol Accu-Cheks will adjust medication as needed continue diabetic diet (8) Parkinson's disease dementia: Qualifiers: Dementia behavioral or psychological symptom: unspecified whether behavioral, psychotic, or mood disturbance or anxiety Dementia severity: unspecified severity Qualified Code(s): G20 - Parkinson's disease; F02.80 - Dementia in other diseases classified elsewhere, unspecified severity, without behavioral disturbance, psychotic disturbance, mood disturbance, and anxiety Code(s): G20 - Parkinson's disease; F02.80 - Dementia in other diseases classified elsewhere, unspecified severity, without behavioral disturbance, psychotic disturbance, mood disturbance, and anxiety Status: Chronic Assessment and Plan: continue home medical (9) Frequent falls: Code(s): R29.6 - Repeated falls Status: Acute Assessment and Plan: continue home medical (10) Urinary incontinence: Code(s): R32 - Unspecified urinary incontinence Status: Acute (11) Neuropathy: Code(s): G62.9 - Polyneuropathy, unspecified Status: Chronic (12) Hyperlipidemia: Code(s): E78.5 - Hyperlipidemia, unspecified Status: Acute Assessment and Plan: continue home medical (13) Hypertension: Code(s): I10 - Essential (primary) hypertension Status: Acute Assessment and Plan: stable continue home medical DS: Summary Time Spent with Patient Time attestation: Total time spent providing and/or coordinating discharge services: Exam Narrative: GENERAL: This is a Pale well-developed patient, in no apparent distress. HEAD: normocephalic, atraumatic. EYES: PERRL. Sclera clear/white. Vision is grossly intact. patient is legally blind EARS: External ears normal, auditory canals clear and without drainage, TMs normal without perforation. Hearing grossly intact. NOSE: External nose normal with no obvious nasal discharge, nares without redness, no rhinorrhea. THROAT: Mucous membranes moist, posterior pharynx clear. CARDIOVASCULAR: Regular rate and irregular rhythm . RESPIRATORY: Clear to auscultation. Breath sounds equal bilaterally. GASTROINTESTINAL: Abdomen soft, non-tender, nondis
[2022-09-27] MEDS: INSULIN HUMAN LISPRO (*BKC) 1,000 UNITS/10 ML VIAL SUB-Q ×2 (11:22→17:01)
[2022-09-27 11:25] LABS: Glucose Point of Care 258 mg/dl (65-105)
[2022-09-27 16:00] VITALS: BP 117/82; PULSE 62; RESP 16; TEMP 36.4; O2SAT 98
[2022-09-27 16:41] LABS: Glucose Point of Care 214 mg/dl (65-105)
[2022-09-27] MEDS: SERTRALINE HCL 50 MG TABLET PO (17:00)
--- NOTE | 2022-09-27 18:59 | PC.NURSE ---
Patient a/o x 1 today with only a few hallucinations. Patient refuses t&p and when is turned to side, wiggles onto his back quickly. Patient ate well and appears to be in a good mood.
[2022-09-27 20:00] VITALS: PULSE 62; RESP 16; O2SAT 98
[2022-09-27] MEDS: MELATONIN 5 MG TABLET 10 MG PO (20:50)
[2022-09-27] MEDS: ATORVASTATIN 40 MG TABLET PO (20:50)
[2022-09-27] MEDS: QUEtiapine FUMARATE 25 MG TABLET 50 MG PO (20:50)
[2022-09-27] MEDS: DONEPEZIL HCL 5 MG TABLET 10 MG PO (20:51)
[2022-09-28] VITALS: BP 133/85; PULSE 100; RESP 18; TEMP 36.4; O2SAT 98
[2022-09-28 07:28] LABS: Glucose Point of Care 202 mg/dl (65-105)
[2022-09-28] MEDS: INSULIN HUMAN LISPRO (*BKC) 1,000 UNITS/10 ML VIAL SUB-Q ×2 (07:52→17:21)
[2022-09-28] MEDS: FERROUS SULFATE 324 MG TABLET PO (07:53)
[2022-09-28] MEDS: CARBIDOPA/LEVODOPA 25/100 MG TABLET 2 TABLET PO ×6 (07:53→23:00)
[2022-09-28 08:00] VITALS: BP 138/84; PULSE 70; RESP 14; TEMP 36.6; O2SAT 98
[2022-09-28] MEDS: SERTRALINE HCL 50 MG TABLET 100 MG PO (09:09)
[2022-09-28] MEDS: OPTI-GEN TAB 1 TABLET PO (09:09)
[2022-09-28] MEDS: GABAPENTIN 100 MG CAPSULE PO ×2 (09:09→17:13)
[2022-09-28] MEDS: DOCUSATE SODIUM 100 MG CAPSULE PO ×2 (09:09→20:18)
[2022-09-28] MEDS: LOSARTAN POTASSIUM 25 MG TABLET PO (09:10)
[2022-09-28] MEDS: ASPIRIN 81 MG ENTERIC TABLET PO (09:10)
[2022-09-28] MEDS: amLODIPine BESYLATE 5 MG TABLET PO (09:10)
[2022-09-28] MEDS: VITAMIN B COMPLEX CAPSULE 1 CAP PO (09:10)
[2022-09-28 11:45] LABS: Glucose Point of Care 190 mg/dl (65-105)
[2022-09-28] MEDS: LORazepam (*CRX) 0.5 MG TABLET PO ×2 (13:59→20:19)
[2022-09-28 16:35] VITALS: BP 139/75; PULSE 90; RESP 18; TEMP 36.4; O2SAT 99
[2022-09-28] MEDS: SERTRALINE HCL 50 MG TABLET PO (17:13)
[2022-09-28 17:17] LABS: Glucose Point of Care 225 mg/dl (65-105)
[2022-09-28] MEDS: MELATONIN 5 MG TABLET 10 MG PO (20:18)
[2022-09-28] MEDS: QUEtiapine FUMARATE 25 MG TABLET 50 MG PO (20:19)
[2022-09-28] MEDS: ATORVASTATIN 40 MG TABLET PO (20:19)
[2022-09-28] MEDS: DONEPEZIL HCL 5 MG TABLET 10 MG PO (20:19)
[2022-09-28 20:22] LABS: Glucose Point of Care 224 mg/dl (65-105)
[2022-09-29] VITALS: BP 134/87; PULSE 109; RESP 20; TEMP 36.2; O2SAT 97
[2022-09-29 07:51] LABS: Glucose Point of Care 183 mg/dl (65-105)
[2022-09-29 08:00] VITALS: BP 158/84; PULSE 69; RESP 16; TEMP 36.2; O2SAT 98
[2022-09-29] MEDS: CARBIDOPA/LEVODOPA 25/100 MG TABLET 2 TABLET PO ×5 (08:11→23:56)
[2022-09-29] MEDS: FERROUS SULFATE 324 MG TABLET PO (08:12)
[2022-09-29] MEDS: VITAMIN B COMPLEX CAPSULE 1 CAP PO (09:07)
[2022-09-29] MEDS: OPTI-GEN TAB 1 TABLET PO (09:08)
[2022-09-29] MEDS: DOCUSATE SODIUM 100 MG CAPSULE PO ×2 (09:09→21:05)
[2022-09-29] MEDS: LOSARTAN POTASSIUM 25 MG TABLET PO (09:09)
[2022-09-29] MEDS: SERTRALINE HCL 50 MG TABLET 100 MG PO (09:09)
[2022-09-29] MEDS: GABAPENTIN 100 MG CAPSULE PO ×2 (09:09→17:26)
[2022-09-29] MEDS: ASPIRIN 81 MG ENTERIC TABLET PO (09:09)
[2022-09-29] MEDS: amLODIPine BESYLATE 5 MG TABLET PO (09:10)
[2022-09-29 12:12] LABS: Glucose Point of Care 199 mg/dl (65-105)
[2022-09-29] MEDS: ACETAMINOPHEN 500 MG TABLET PO (12:45)
[2022-09-29] MEDS: LORazepam (*CRX) 0.5 MG TABLET PO ×2 (12:46→21:06)
[2022-09-29 16:35] VITALS: BP 165/83; PULSE 72; RESP 18; TEMP 36.8; O2SAT 98
[2022-09-29] MEDS: SERTRALINE HCL 50 MG TABLET PO (17:26)
[2022-09-29 17:31] LABS: Glucose Point of Care 213 mg/dl (65-105)
[2022-09-29] MEDS: ATORVASTATIN 40 MG TABLET PO (21:05)
[2022-09-29] MEDS: QUEtiapine FUMARATE 25 MG TABLET 50 MG PO (21:05)
[2022-09-29] MEDS: DONEPEZIL HCL 5 MG TABLET 10 MG PO (21:06)
[2022-09-29] MEDS: MELATONIN 5 MG TABLET 10 MG PO (21:06)
[2022-09-29 21:09] LABS: Glucose Point of Care 272 mg/dl (65-105)
[2022-09-30] VITALS: BP 164/85; PULSE 70; RESP 18; TEMP 36.3; O2SAT 97
[2022-09-30 07:29] VITALS: BP 171/89; PULSE 70; RESP 16; TEMP 36.4; O2SAT 99
[2022-09-30 07:46] LABS: Glucose Point of Care 208 mg/dl (65-105)
[2022-09-30] MEDS: DOCUSATE SODIUM 100 MG CAPSULE PO (08:04)
[2022-09-30] MEDS: ASPIRIN 81 MG ENTERIC TABLET PO (08:04)
[2022-09-30] MEDS: VITAMIN B COMPLEX CAPSULE 1 CAP PO (08:04)
[2022-09-30] MEDS: OPTI-GEN TAB 1 TABLET PO (08:04)
[2022-09-30] MEDS: SERTRALINE HCL 50 MG TABLET 100 MG PO (08:05)
[2022-09-30] MEDS: FERROUS SULFATE 324 MG TABLET PO (08:05)
[2022-09-30] MEDS: amLODIPine BESYLATE 5 MG TABLET PO (08:05)
[2022-09-30] MEDS: GABAPENTIN 100 MG CAPSULE PO (08:05)
[2022-09-30] MEDS: INSULIN HUMAN LISPRO (*BKC) 1,000 UNITS/10 ML VIAL SUB-Q (08:05)
[2022-09-30] MEDS: LOSARTAN POTASSIUM 25 MG TABLET PO (08:05)
[2022-09-30] MEDS: CARBIDOPA/LEVODOPA 25/100 MG TABLET 2 TABLET PO (08:07)
--- NOTE | 2022-09-30 08:28 | PM.DS ---
DS: Admitting Diagnosis Discharge Date 09/30/2022 Admitting Diagnosis rehab/ weakness DS: Discharge Diagnosis Discharge Diagnosis (1) Chronic anemia: Code(s): D64.9 - Anemia, unspecified Status: Chronic Assessment and Plan: ?continue our supplement serum iron and saturation low. B12 and folate within normal limits. ?no active bleeding noted (2) Dementia: Code(s): F03.90 - Unspecified dementia, unspecified severity, without behavioral disturbance, psychotic disturbance, mood disturbance, and anxiety Status: Chronic Assessment and Plan: ?continue home medication (3) Generalized weakness: Code(s): R53.1 - Weakness Status: Acute Assessment and Plan: Discharge to a SNF (4) Depression: Code(s): F32.A - Depression, unspecified Status: Acute Assessment and Plan: ?continue home medication (5) Anxiety: Code(s): F41.9 - Anxiety disorder, unspecified Status: Acute Assessment and Plan: ?continue home medication (6) Insulin dependent type 2 diabetes mellitus: Code(s): E11.9 - Type 2 diabetes mellitus without complications; 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 Status: Acute Assessment and Plan: ?continue home medication (7) Parkinson's disease dementia: Qualifiers: Dementia behavioral or psychological symptom: unspecified whether behavioral, psychotic, or mood disturbance or anxiety Dementia severity: unspecified severity Qualified Code(s): G20 - Parkinson's disease; F02.80 - Dementia in other diseases classified elsewhere, unspecified severity, without behavioral disturbance, psychotic disturbance, mood disturbance, and anxiety Code(s): G20 - Parkinson's disease; F02.80 - Dementia in other diseases classified elsewhere, unspecified severity, without behavioral disturbance, psychotic disturbance, mood disturbance, and anxiety Status: Chronic Assessment and Plan: ?continue home medication (8) Frequent falls: Code(s): R29.6 - Repeated falls Status: Acute (9) Urinary incontinence: Code(s): R32 - Unspecified urinary incontinence Status: Acute (10) Neuropathy: Code(s): G62.9 - Polyneuropathy, unspecified Status: Chronic Assessment and Plan: ?continue home medication (11) Hyperlipidemia: Code(s): E78.5 - Hyperlipidemia, unspecified Status: Acute Assessment and Plan: ?continue home medication (12) Hypertension: Code(s): I10 - Essential (primary) hypertension Status: Acute Assessment and Plan: ?continue home medication DS: Summary Hospital Course Hospital Course: ?this is a 66-year-old male that presented to [place] urgent care with complaints of a low blood sugar. patient has a past medical history of anxiety, anemia, dementia, depression, hyperlipidemia, hypertension, type 2 diabetes, Parkinson's disease, AFib, peripheral neuropathy and urinary incontinence patient does have a history of frequent falls and he tested positive for COVID. Patient admitted in swing bed for rehabilitation due to decreased balance decreased mobility in severe limited function endurant and/or mobility. Patient will discharge to a SNF. The patient denies SOB, CP, palpitation, extremity numbness, lightheadedness, dizziness, constipation, diarrhea, chills, or fever. Time Spent with Patient Time attestation: Total time spent providing and/or coordinating discharge services: Exam Narrative: ? GENERAL: This is a well-nourished, well-developed patient, in no apparent distress. HEAD: normocephalic, atraumatic. EYES: PERRL. Sclera clear/white. Vision is grossly intact. patient is legally blind EARS: External ears normal, auditory canals clear and without drainage, TMs normal without perforation. Hearing grossly intact. NOSE: External nose normal with no obvious nasal discharge, nares without redness, no rhinorrh
--- NOTE | 2022-09-30 09:50 | PC.NURSE ---
Spoke with spouse regarding discharge instructions. Spouse stated she will meet patient at nursing facility. Report called to Ryanne pierce [facility]
--- NOTE | 2022-09-30 10:19 | PC.NURSE ---
Patient picked up by [facility]. Spouse notified of continuous pickling line pickler so that she could meet ambulance at facility
--- NOTE | 2022-10-01 12:16 | PC.NURSE ---
senior living nurse states she received and understood the discharge instructions.
[2022-10-04 15:12] LABS: Glucose Point of Care 179 mg/dl (65-105)
[2022-11-27 13:03] LABS: Glucose Point of Care 269 mg/dl (65-105)
[2022-11-27 13:03] LABS: Glucose Point of Care 168 mg/dl (65-105)
[2022-11-27 13:03] LABS: Glucose Point of Care 189 mg/dl (65-105)
[2022-11-27 13:03] LABS: Glucose Point of Care 252 mg/dl (65-105)
[2022-11-27 13:03] LABS: Glucose Point of Care 265 mg/dl (65-105)
== END 2022-09-30 10:20 | DRG 947 ==
PROVIDERS: Nurse Practitioner; Admitting Provider Internal Medicine; PCP Family Medicine; Visit Provider Internal Medicine
DX: R53.1 Weakness (principal); U07.1 COVID-19; I48.0 Paroxysmal atrial fibrillation; I10 Essential (primary) hypertension; D64.9 Anemia, unspecified; E11.42 Type 2 diabetes mellitus with diabetic polyneuropathy; R29.6 Repeated falls; E78.5 Hyperlipidemia, unspecified; G20 Parkinson's disease; F02.80 Dementia in other diseases classified elsewhere, unspecified severity, without behavioral disturbance, psychotic disturbance, mood disturbance, and anxiety; F41.9 Anxiety disorder, unspecified; F32.A Depression, unspecified; Z96.641 Presence of right artificial hip joint; Z79.82 Long term (current) use of aspirin; Z79.4 Long term (current) use of insulin; Z96.82 Presence of neurostimulator
CPT/HCPCS: 36415; 80053; 82948; 85027; 97110; 97161; 97165; 97530; 97535; 97750; A9270; J1815